=== PATIENT | female | born 1940 | race Caucasian/White ===

== ENCOUNTER 2019-09-28 21:55 | Observation (INO) | payer MEDICARE, SELFPAY ==
--- NOTE | ~2019-09-28 | CT_ITS ---
EXAMINATION: CT brain wo con EXAM DATE: 09/28/2019 22:41 INDICATION: Head injury. TECHNIQUE: Spiral CT of the head was performed without contrast. Axial, coronal and sagittal images were reviewed. The dose-length product (DLP) for this examination was 681.00 mGy-cm. The exposure w as tailored according to patient size, and iterative reconstruction (ASIR) was used as additional dos e reduction technique. Comparison is made to prior examination from 06/12/2019. FINDINGS: There is no acute intraparenchymal hemorrhage. No evidence of intraparenchymal brain mass lesion. No evidence of acute infarction. Please note that initial head CT has limited sensitivity f or small or acute infarctions. There is mild periventricular and subcortical hypodensity, nonspecific but probably related to small vessel ischemic disease. There is moderate prominence of the sulci a nd ventricles related to cerebral atrophy. There is intracranial carotid arteriosclerosis. There a re no extra-axial collections. There is no mass effect or midline shift. Moderate right sphenoid, mild bilateral ethmoid mucoperiosteal thickening. Mastoid air cells are well -aerated. Bilateral cataract surgery. There is left parietal scalp laceration, moderate hematoma. IMPRESSION: 1. No acute intracranial findings. 2. Chronic age related findings. 3. Left parietal scalp laceration, contusion, hematoma. Reviewed, dictated and finalized at location .
--- NOTE | ~2019-09-28 | XR_ITS ---
EXAMINATION: XR hip RT 2V w AP pelvis DATE: 09/29/2019 01:56 INDICATION: Right hip pain. TECHNIQUE: An anteroposterior view of the pelvis and 2 views of right hip were obtained. COMPARISON: CT abdomen and pelvis 12/29/2011 FINDINGS: There is lumbar dextrocurvature and mild spondylosis. No fracture. There is mild osteoarthr itis of the hips. There are surgical clips in right abdomen. IMPRESSION: 1. Mild osteoarthritis of the hips. Reviewed, dictated and finalized at location A.
[2019-09-28 21:55] VITALS: BP 198/80; PULSE 76; RESP 15; TEMP 36.6; O2SAT 97
--- NOTE | 2019-09-28 21:58 | ECG_ITS ---
Measurements Intervals [place] Rate: 75 P: MS: 0 QRS: 63 QRSD: 149 T: 0 QT: 425 QTc: 477 Interpretive Statements SINUS RHYTHM WITH FIRST DEGREE AV BLOCK RIGHT BUNDLE BRANCH BLOCK BASELINE ARTIFACT- I, II, III, AVR, AVL, AVF, V1-V2, V4-V6 ABNORMAL ECG Electronically Signed On 09-29-2019 7:18:55 CDT by Ang Dee D.O.
[2019-09-28] MEDS: SODIUM CHLORIDE 0.9% IV 1,000 ML 999 ML IV CONT (22:04)
[2019-09-28] MEDS: ONDANSETRON INJ 4 MG/2 ML VIAL IV PUSH (22:04)
--- NOTE | 2019-09-28 22:05 | ED.FALL ---
HPI - Fall General Chief Complaint: Fall Stated Complaint: fall Time Seen by Provider: 09/28/19 21:57 History of Present Illness HPI Narrative: Pt c/o head pain and right hip pain after she lost her balance after she bent over to try to pick something up from the floor. She denies LOC. Denies any symptoms prior to the fall. Pt denies neck, chest, abd, or back pain. Related Data Home Medications Medication Instructions Recorded Confirmed aspirin 81 mg tablet,delayed 81 mg PO DAILY 06/17/19 release multivitamin 1 tablet PO DAILY 06/17/19 Allergies Allergy/AdvReac Type Severity Reaction Status Date / Time diltiazem Allergy Unknown Anxiety Verified 07/15/19 12:35 Review of Systems Review of Systems: All systems reviewed & are unremarkable except as noted in HPI and below Constitutional: Constitutional: Denies body ache(s), Denies chills, Denies excessive sweating, Denies fatigue, Denies fever(s), Denies headache(s), Denies lethargy, Denies malaise, Denies weakness and Denies weight loss Eyes: Eyes: Denies blurry vision, Denies change in vision and Denies loss of vision ENT: Denies dizziness, Denies ear discharge, Denies headache(s), Denies lip swelling, Denies epistaxis, Denies nasal congestion, Denies neck pain, Denies throat swelling and Denies tongue swelling Cardiovascular: Cardiovascular: Denies chest pain, Denies chest pain at rest, Denies chest pain with activity, Denies diaphoresis, Denies rapid heart rate, Denies edema, Denies irregular heart rhythm, Denies lightheadedness, Denies palpitations, Denies dyspnea and Denies dyspnea on exertion Respiratory: Respiratory: Denies chest congestion, Denies cough, Denies hemoptysis, Denies dyspnea and Denies dyspnea on exertion Gastrointestinal: Gastrointestinal: Denies abdominal pain, Denies melena, Denies hematochezia, Denies diarrhea, Denies nausea, Denies vomiting and Denies hematemesis Musculoskeletal: Musculoskeletal: Denies neck pain and Denies numbness Neurologic: Denies Abnormal speech present, Denies confusion, Denies dizziness, Denies headache(s), Denies focal weakness, Denies loss of vision, Denies numbness, Denies Other visual disturbances, Denies Sensory deficit (Neuro) and Denies weakness Psychiatric: Psychiatric: Denies confusion, Denies depression, Denies auditory hallucinations, Denies homicidal ideation and Denies suicidal ideation Endocrine: Endocrine: Denies cold intolerance, Denies excessive sweating, Denies fatigue, Denies heat intolerance and Denies palpitations Hematologic/Lymphatic: Hematologic/Lymphatic: Denies easy bleeding and Denies easy bruising Allergic/Immunologic: Allergic/Immunologic: Denies lip swelling, Denies throat swelling and Denies tongue swelling PMFSH Past Medical History Medical History (Updated 09/29/19 @ 00:48 by Pola Kern MD) Anxiety Diabetes HTN (hypertension) Hypercholesterolemia Hypothyroid Surgical History Surgical History (Updated 04/26/19 @ 14:22 by MELANI Molina) H/O right nephrectomy Social History Social History Smoking status: Never smoker Alcohol intake: never Gender identity (if verbalized by the patient): Female Exam Const: General: cooperative, healthy appearing, comfortable, well developed, alert and awake; No confusion Nutritional Appearance: obese Orientation/consciousness: oriented to person, oriented to place, oriented to time, patient oriented x3 and No confusion Limitations: no limitations Other: mild distress HENMT: Ears: hearing grossly normal bilaterally, TM normal on the right and TM normal on the left General nose exam: Normal external nose present, Normal nares present and No nasal discharge present Face and sinus: normal facial exam Mouth: Yes Normal oral and palatal mucosa present, Yes lip normal, Yes tongue normal and Yes oropharynx normal Throat: posterior oropharynx normal, tonsils normal and u
[2019-09-28 22:30] LABS: Basophils Percent Auto 0.6 % (0.2-1.2); Eosinophils Absolute Auto 0.2 K/mm3 (0-0.3); Hematocrit 34.7 % (37.0-47.0); Immature Granulocyte Absolute 0.11 K/mm3 (0.00-0.031); Immature Granulocyte Percent A 1.5 % (0-0.5); Lymphocytes Absolute Auto 1.02 K/mm3 (0.9-3.2); Lymphocytes Percent Auto 14.3 % (18.3-44.2); Mean Corpuscular HGB Conc 31.7 g/dl (32-36); Mean Corpuscular Hemoglobin 28.4 pg (26-34); Mean Corpuscular Volume 89.4 fl (80-100); Mean Platelet Volume 9.6 fl (7.4-10.4); Monocytes Absolute Auto 0.6 K/mm3 (0.1-0.6); Neutrophils Absolute Auto 5.1 K/mm3 (1.3-6.7); Neutrophils Percent Auto 71.6 % (45.5-73.1); Platelet Count Result 245 k/mm3 (150-375); Red Blood Count 3.88 M/mm3 (4.2-5.4); Red Cell Distribution Width 14.9 % (11.5-14.5); White Blood Count 7.1 K/mm3 (4.5-10.0)
[2019-09-28 22:40] LABS: Prothrombin Time 13.2 Seconds (11.1-14.7)
[2019-09-28 22:41] LABS: Partial Thromboplastin Time 28.1 SECONDS (22.3-36.8)
[2019-09-28 22:42] LABS: Alanine Aminotransferase 19 U/L (4-35); Albumin Level 3.4 g/dL (3.5-5.1); Alkaline Phosphatase 61 U/L (38-126); Aspartate Amino Transferase 32 U/L (14-36); Bilirubin,Total 0.4 mg/dL (0.2-1.3); Blood Urea Nitrogen 23 mg/dL (7-17); Calcium 8.5 mg/dL (8.4-10.2); Carbon Dioxide 30 mmol/L (22-30); Chloride 101 mmol/L (98-107); Estimated CRCL calculation 46 ml/min; Estimated Glomerular Filt Rate 54; Glucose 179 mg/dL (65-105); Sodium 139 mmol/L (137-145)
[2019-09-28 22:53] LABS: Troponin I 0.018 ng/mL (0.000-0.034)
[2019-09-28] MEDS: PROMETHAZINE HCL 25 MG/ML AMPUL 12.5 MG IV PUSH (23:30)
[2019-09-29] VITALS: BP 154/78; PULSE 69; RESP 12; O2SAT 96
[2019-09-29] MEDS: ONDANSETRON INJ 4 MG/2 ML VIAL IV PUSH (00:40)
[2019-09-29] MEDS: LACTATED RINGERS 1,000 ML 250 ML IV CONT (00:41)
[2019-09-29] MEDS: HYDROMORPHONE HCL 1 MG/ML INJ 0.5 MG IV PUSH (01:26)
[2019-09-29 01:37] VITALS: BP 160/50; PULSE 85; RESP 12; TEMP 37.1; O2SAT 97
[2019-09-29 03:16] VITALS: BP 144/46; PULSE 83; RESP 18; TEMP 36.2; O2SAT 95; BMI 44.8
[2019-09-29 06:00] VITALS: BP 181/51; PULSE 77; RESP 18; TEMP 36.6; O2SAT 93
--- NOTE | 2019-09-29 06:33 | ADMGEN ---
This patient, Martine Short, was admitted to Medical Room 245-. Patient/family oriented to hospital policies and general routines including ID bracelet, bed and alarms, visiting hours, pain management, procedures, bathroom and other care routines, personal items, smoking policy, room service/diet, and visiting hours. Valuables list has been completed. Information on how to activate the Rapid Response Team has been discussed. Patient/Family are encouraged to report perceived risks to care and to ask questions if they do not understand what they are told or what they should do.
--- NOTE | 2019-09-29 11:44 | PM.SD ---
Same Day Admit/Disch: HPI History of Present Illness Chief complaint: Head injury, Intractable vomiting Narrative: Martine Short is a 79 year old female who was in her usual state of health until 09/27 in the afternoon when she bent over to grain picker a book that had dropped to the floor. As she bent over she lost her balance and fell to the floor striking her head and left hand and hip. She did not lose consciousness. This occurred sometime around 2:00 p.m.. Around 3:00 p.m. she began to feel nauseated. She had 3 episodes of vomiting. She has been NPO since. About 2-3 weeks ago she had a similar fall at home. She again lost her balance. She has bruising of both knees and the right thigh She denied headache, weakness, numbness, tenderness, worsened visual changes, for abdominal pain, and diarrhea. She denied recent illness. And She denied fevers chills sweats dyspnea chest pain and swelling. [facility] Past Medical History Medical History (Updated 09/29/19 @ 12:10 by Ras Sorto MD) Anxiety Diabetes HTN (hypertension) Hypercholesterolemia Hypothyroid Surgical History Surgical History (Updated 09/29/19 @ 12:06 by Ras Sorto MD) H/O right nephrectomy for renal cell CA about 1999 Family History Family History Father Family history of heart disease in male family member before age 55 Other Diabetes mellitus Family history of arthritis Family history of cardiovascular disease Family history of malignant neoplasm Hypertension Social History Social History (Updated 09/29/19 @ 12:07 by Ras Sorto MD) Smoking status: Never smoker Alcohol intake: never Substance use: never Living arrangements: with family Additional living arrangements comments: Resides with sister. 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 Gender identity (if verbalized by the patient): Female Spiritual care concerns: No Agree to blood products: Yes Same Day Admit/Disch: Med Pre-admit Medications Home Medications Medication Instructions Recorded Confirmed Type aspirin 81 mg tablet,delayed 81 mg PO DAILY 06/17/19 09/29/19 History release multivitamin 1 tablet PO DAILY 06/17/19 09/29/19 History atorvastatin 40 mg tablet 40 mg PO DAILY #90 tablet 07/13/19 09/29/19 Rx bumetanide 2 mg tablet 2 mg PO BID #180 tablet 07/13/19 09/29/19 Rx citalopram 20 mg tablet 20 mg PO DAILY #90 tablet 07/13/19 09/29/19 Rx hydralazine 50 mg tablet 50 mg PO TID #270 tablet 07/13/19 09/29/19 Rx insulin human U-100 NPH-regulr 20 unit SUB-Q BID #10 ml 07/13/19 09/29/19 Rx 70-30 mix 100 unit/mL subcutaneous susp levothyroxine 112 mcg tablet 112 mcg PO DAILY #90 tablet 07/13/19 09/29/19 Rx pen needle, diabetic 31 gauge x #1,200 each 07/13/19 Rx 5/16 insulin detemir U-100 100 unit/mL 10 unit SUB-Q DAILY #3 ml 07/23/19 09/29/19 Rx (3 mL) subcutaneous pen blood sugar diagnostic #400 each 07/26/19 Rx blood-glucose meter #1 each 07/26/19 Rx lancets 33 gauge #400 each 07/26/19 Rx insulin syringe-needle U-100 1 mL #200 each 08/20/19 Rx 25 x 1 promethazine 12.5 mg PO Q6H PRN #14 tablet 09/29/19 Rx tolnaftate 1 applic TOPICAL Q12HR #45 gm 09/29/19 Rx Exam Narrative: Exam Narrative: HEENT: EOMI, PERRL, pharyngeal mucosa pink and intact NECK: No JVD, adenopathy, or thyromegaly CHEST: Clear to auscultation. Normal effort. HEART: NL S1/S2, regular, Soft SERJIO RUSB ABDOMEN: BS+, soft, nontender, no mass, no bruits EXTREMITIES: No cyanosis, pitting edema, or clubbing. Radial and pedal pulses intact NEUROLOGIC: CN intact and symmetric to inspection. DTR's 1+ upper extremities and knees and absent at ankles. Babinski negative. Sensation to light touch and position intact at both great toes. MUSCULOSKELETAL: Tone and strength symmetric. PSYCH: Alert. Oriented to person, place, and time. DS: Data Data
[2019-09-29] MEDS: TOLNAFTATE 1% POWDER 45 GM BTL 1 APPLIC TOPICAL (13:09)
[2019-09-29 13:10] LABS: Hematocrit 33.9 % (37.0-47.0); Mean Corpuscular HGB Conc 32.4 g/dl (32-36); Mean Corpuscular Hemoglobin 28.9 pg (26-34); Mean Corpuscular Volume 89.2 fl (80-100); Mean Platelet Volume 10.4 fl (7.4-10.4); Platelet Count Result 287 k/mm3 (150-375); Red Cell Distribution Width 14.7 % (11.5-14.5)
[2019-09-29] MEDS: hydrALAZINE HCL 50 MG TABLET PO (13:12)
[2019-09-29 13:13] VITALS: BP 167/60
[2019-09-29 13:34] LABS: Blood Urea Nitrogen 17 mg/dL (7-17); Calcium 8.4 mg/dL (8.4-10.2); Carbon Dioxide 28 mmol/L (22-30); Chloride 98 mmol/L (98-107); Estimated CRCL calculation 65 ml/min; Estimated Glomerular Filt Rate > 60; Glucose 215 mg/dL (65-105); Potassium 4.3 mmol/L (3.4-5.0); Sodium 132 mmol/L (137-145)
[2019-09-29 14:00] VITALS: BP 152/41; PULSE 71; RESP 16; TEMP 36.8; O2SAT 96
== END 2019-09-29 16:55 | disposition home health service (06) ==
LOC: ANHED 09-29 00:48 → ANH2MED 09-29 12:17
PROVIDERS: Admitting Provider Family Medicine; Emergency Provider Emergency Medicine; PCP Internal Medicine; Visit Provider Internal Medicine
DX: S06.0X0A Concussion without loss of consciousness, initial encounter (principal); R11.2 Nausea with vomiting, unspecified; S70.01XA Contusion of right hip, initial encounter; T14.8XXA Other injury of unspecified body region, initial encounter; W18.39XA Other fall on same level, initial encounter; E11.3549 Type 2 diabetes mellitus with proliferative diabetic retinopathy with combined traction retinal detachment and rhegmatogenous retinal detachment, unspecified eye; H35.30 Unspecified macular degeneration; I10 Essential (primary) hypertension; E78.00 Pure hypercholesterolemia, unspecified; E03.9 Hypothyroidism, unspecified; I35.0 Nonrheumatic aortic (valve) stenosis; I89.0 Lymphedema, not elsewhere classified; F41.9 Anxiety disorder, unspecified; F32.9 Major depressive disorder, single episode, unspecified; Z79.4 Long term (current) use of insulin; Z79.82 Long term (current) use of aspirin; Z79.899 Other long term (current) drug therapy; Z85.528 Personal history of other malignant neoplasm of kidney; Z90.5 Acquired absence of kidney
CPT/HCPCS: 36415; 70450; 73502; 80048; 80053; 84484; 85025; 85027; 85610; 85730; 93005; 96361; 96374; 96375; 97161; 97165; 99285; A9270; G0378; J1170; J2405; J2550; J7030; J7120

== ENCOUNTER 2019-11-23 07:18 | Outpatient (CLI) | payer MEDICARE, SELFPAY ==
[2019-11-23 08:10] LABS: Blood Urea Nitrogen 16 mg/dL (7-17); Calcium 8.9 mg/dL (8.4-10.2); Carbon Dioxide 31 mmol/L (22-30); Chloride 99 mmol/L (98-107); Estimated Glomerular Filt Rate > 60; Glucose 105 mg/dL (65-105); Potassium 4.3 mmol/L (3.4-5.0); Sodium 135 mmol/L (137-145)
[2019-11-23 08:39] LABS: Creatinine Urine 55.7 mg/dL
[2019-11-23 08:44] LABS: MALB Creatinine Ratio 33.4 mg/g (0-30); Microalbumin Urine Random 18.6 mg/L (0-16.7)
== END 2019-11-23 07:19 | disposition home or self-care (01) ==
PROVIDERS: PCP Internal Medicine; Visit Provider Internal Medicine
DX: E11.354 Type 2 diabetes mellitus with proliferative diabetic retinopathy with combined traction retinal detachment and rhegmatogenous retinal detachment (principal)
CPT/HCPCS: 36415; 80048; 82043; 83036

== ENCOUNTER 2020-01-21 12:21 | Emergency (ER) | payer MEDICARE, SELFPAY ==
--- NOTE | ~2020-01-21 | CT_ITS ---
EXAMINATION: CT brain wo con EXAM DATE: 01/21/2020 13:39 INDICATION: Fall, head injury. TECHNIQUE: Spiral CT of the head was performed without contrast. Axial, coronal and sagittal images were reviewed. The dose-length product (DLP) for this examination was 605.33 mGy-cm. The exposure w as tailored according to patient size, and iterative reconstruction (ASIR) was used as additional dos e reduction technique. Comparison is made to prior examination from 09/28/2019. FINDINGS: There is no acute intraparenchymal hemorrhage. No evidence of intraparenchymal brain mass lesion. No evidence of acute infarction. Please note that initial head CT has limited sensitivity f or small or acute infarctions. There is mild periventricular and subcortical hypodensity, nonspecific but probably related to small vessel ischemic disease. There is mild prominence of the sulci and v entricles related to cerebral atrophy. There is intracranial carotid arteriosclerosis. There are n o extra-axial collections. There is no mass effect or midline shift. Patient has had bilateral ocul ar lens surgery. Soft tissue is unremarkable. The visualized sinuses and mastoid air cells are well aerated. IMPRESSION: 1. No acute intracranial findings. 2. Chronic age related findings. Reviewed, dictated and finalized at location B.
[2020-01-21 12:23] VITALS: BP 125/44; PULSE 69; RESP 17; TEMP 36.8; O2SAT 96
--- NOTE | 2020-01-21 13:06 | ED.HEATRA ---
HPI - Head Injury General Chief complaint: Head Injury Stated complaint: FALL/HEAD INJURY Time Seen by Provider: 01/21/20 12:24 Source: patient and family Mode of arrival: ambulatory Limitations: no limitations History of Present Illness HPI Narrative: Patient missed a step and fell striking the right side of her head on the wall ON the way down causing a small hematoma, no loss of consciousness, no neck pain or other injuries. Patient does not take blood thinner. Related Data Home Medications Medication Instructions Recorded Confirmed aspirin 81 mg tablet,delayed 81 mg PO DAILY 06/17/19 09/29/19 release multivitamin 1 tablet PO DAILY 06/17/19 09/29/19 acetaminophen 500 mg tablet 1,000 mg PO Q6H PRN tablet 10/04/19 omega-3 fatty acids 1,000 mg 1,000 mg PO TID cap 10/04/19 capsule Allergies Allergy/AdvReac Type Severity Reaction Status Date / Time diltiazem Allergy Unknown Anxiety Verified 01/21/20 12:27 Review of Systems Review of Systems: Narrative: CONSTITUTIONAL: Denies fever, chills, or sweats. EYES: Denies visual changes, redness, or discharge. ENT: Denies rhinorrhea, congestion, sore throat, or otalgia. CARDIOVASCULAR: Denies chest pain, palpitations, or edema. RESPIRATORY: Denies cough or dyspnea. GASTROINTESTINAL: Denies abdominal pain, nausea, vomiting, or diarrhea. GENITOURINARY: Denies dysuria or hematuria. SKIN: Denies rash or itching. MUSCULOSKELETAL: Denies back pain, joint pain, or myalgia. NEUROLOGIC: Denies headache, numbness, or weakness. PSYCHIATRIC: Denies anxiety or depression. [facility] Past Medical History Medical History Anxiety Diabetes HTN (hypertension) Hypercholesterolemia Hypothyroid Surgical History Surgical History H/O right nephrectomy for renal cell CA about 1999 Family History Family History Father Family history of heart disease in male family member before age 55 Other Diabetes mellitus Family history of arthritis Family history of cardiovascular disease Family history of malignant neoplasm Hypertension Social History Social History Smoking status: Never smoker Alcohol intake: never Substance use: never Additional living arrangements comments: Resides with sister. 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 Gender identity (if verbalized by the patient): Female Spiritual care concerns: No Agree to blood products: Yes Exam Narrative: Exam Narrative: General appearance: Well-developed, well-nourished Skin: Normal color Head: Normocephalic, 2 cm of the right parietal hematoma, no laceration, no abrasion. Eyes: Clear conjunctiva ENT: Oropharynx normal, ears normal, nose normal Neck: Supple, nontender Chest and respiratory: Airway patent, no respiratory distress, no accessory muscle use Heart: Regular rate/rhythm Abdomen: Soft, nontender, no organomegaly, quiet bowel sounds Vascular: Normal peripheral pulses, normal capillary refill. Musculoskeletal: Normal range of motion, nontender back Neurologic: Alert and oriented ?3, INSURANCE COMPLIANCE ANALYST is normal as tested, no gross motor deficit Course Course Emergency Course: Stable Vital Signs Vital signs: Vital Signs Temperature 36.8 C 01/21/20 12:23 Pulse Rate 69 01/21/20 12:23 Respiratory Rate 17 01/21/20 12:23 Blood Pressure 125/44 L 01/21/20 12:23 Pulse Oximetry 96 01/21/20 12:23 Temperature 36.8 C 01/21/20 12:23 Pulse Rate 69 01/21/20 12:23 Respiratory Rate
[2020-01-21 13:28] VITALS: BP 143/43; PULSE 64; RESP 18; O2SAT 98
== END 2020-01-21 14:05 | disposition home or self-care (01) ==
PROVIDERS: Emergency Provider Emergency Medicine; PCP Internal Medicine
DX: S06.0X0A Concussion without loss of consciousness, initial encounter (principal); E11.9 Type 2 diabetes mellitus without complications; I10 Essential (primary) hypertension; E78.00 Pure hypercholesterolemia, unspecified; E03.9 Hypothyroidism, unspecified; Z90.5 Acquired absence of kidney; Z85.528 Personal history of other malignant neoplasm of kidney; Z79.82 Long term (current) use of aspirin; W10.9XXA Fall (on) (from) unspecified stairs and steps, initial encounter
CPT/HCPCS: 70450; 99284

== ENCOUNTER 2020-03-19 18:58 | Inpatient (IN) | payer MEDICARE, MEDICAID, SELFPAY ==
[2020-03-19] VITALS (11 sets, daily range): BP systolic 96–142; BP diastolic 32–57; PULSE 66–80; RESP 16–23; TEMP 36.4–38.1; O2SAT 96–99; BMI 42.6
--- NOTE | ~2020-03-19 | XR_ITS ---
XR tibia fibula RT 2V DATE: 03/19/2020 20:57 INDICATION: Injury from fall. Chronic wound of mid lower leg. History of diabetes. TECHNIQUE: AP and lateral views COMPARISON: None FINDINGS: There is prominent enthesopathy of the superior pole of the patella at the insertion of the quadriceps tendon. There is periarticular spurring of the patellofemoral joint. There is diffuse osteopenia. There is chondrocalcinosis at the knee joint. No fracture or dislocation, periosteal reaction or bone destruction is detected. There is osteoarthritic change at the tibiotalar joint. There is prominent posterior and plantar calc aneal enthesopathy. There is dorsal spurring at the talonavicular and tarsal joints. There is soft tissue swelling and calcifications of the lower leg. 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
--- NOTE | ~2020-03-19 | US_ITS ---
EXAMINATION: US venous doppler LE RT EXAM DATE: 03/20/2020 17:50 INDICATION: Right leg edema. TECHNIQUE: Multiple grayscale, color flow and Doppler images of the right lower extremity deep venous system were obtained and reviewed. There is no prior study for comparison. FINDINGS: The right common femoral, femoral and profunda veins demonstrate normal color flow, respira tory variation, augmentation and compressibility. Compressibility, color flow confirmed within the r ight popliteal, posterior tibial, peroneal, and greater saphenous veins. IMPRESSION: 1. No right lower extremity deep venous thrombosis. Reviewed, dictated and finalized at location A.
--- NOTE | 2020-03-19 19:04 | ED.NAVMDI ---
HPI - Nausea/Vomiting/Diarrhea General Chief complaint: Nausea/Vomiting/Diarrhea Stated complaint: n/v fever Time Seen by Provider: 03/19/20 19:02 Source: patient, family and EMS Mode of arrival: EMS Limitations: no limitations History of Present Illness HPI Narrative: Patient is a 79-year-old female with history of diabetes, renal cell cancer, chronic lymphedema who presents for evaluation of fever and nausea at home. Patient states she had a fever of 100.8 Fahrenheit thus prompting her to call EMS. She had 3 episodes of emesis earlier this morning but denies any chest pain, cough, abdominal pain. No dysuria or hematuria. She reports she has chronic pain in her right lower extremity as well as chronic swelling. She has a wound overlying that area without any discharge or bleeding. Patient states 1 of the EMS staff did hit it with a door while she was being transported off of the ambulance, she reports some increased pain at the site. Related Data Home Medications Medication Instructions Recorded Confirmed aspirin 81 mg tablet,delayed 81 mg PO DAILY 06/17/19 03/09/20 release multivitamin 1 tablet PO DAILY 06/17/19 03/09/20 acetaminophen 500 mg tablet 1,000 mg PO Q6H PRN tablet 10/04/19 03/09/20 omega-3 fatty acids 1,000 mg 1,000 mg PO TID cap 10/04/19 03/09/20 capsule atorvastatin 40 mg DAILY 03/19/20 bumetanide 2 mg DAILY 03/19/20 Allergies Allergy/AdvReac Type Severity Reaction Status Date / Time diltiazem Allergy Unknown Anxiety Verified 03/19/20 20:51 Review of Systems Review of Systems: Narrative: CONSTITUTIONAL: Reports fever EYES: Denies visual changes, redness, or discharge. ENT: Denies rhinorrhea, congestion, sore throat, or otalgia. CARDIOVASCULAR: Denies chest pain reports chronic edema right lower extremity RESPIRATORY: Denies cough or dyspnea. GASTROINTESTINAL: Denies abdominal pain, reports nausea and vomiting early this morning, now resolved, denies diarrhea GENITOURINARY: Denies dysuria or hematuria. SKIN: Denies rash or itching. MUSCULOSKELETAL: Denies back pain, joint pain, or myalgia. NEUROLOGIC: Denies headache, numbness, or weakness. [facility] Past Medical History Medical History Anxiety Diabetes HTN (hypertension) Hypercholesterolemia Hypothyroid Surgical History Surgical History H/O right nephrectomy for renal cell CA about 1999 Family History Family History Father Family history of heart disease in male family member before age 55 Other Diabetes mellitus Family history of arthritis Family history of cardiovascular disease Family history of malignant neoplasm Hypertension Social History Social History Smoking status: Never smoker Alcohol intake: never Substance use: never Additional living arrangements comments: Resides with sister. 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 Gender identity (if verbalized by the patient): Female Spiritual care concerns: No Agree to blood products: Yes Exam Narrative: Exam Narrative: GENERAL: Awake, alert, conversant HEAD: Normocephalic, atraumatic. EYES: PERRLA and EOMI. ENT: Nares clear, no rhinorrhea or epistaxis. Mucous membranes moist. NECK: Supple. CHEST: No respiratory distress, breathing even and non labored HEART: Regular rate, sinus rhythm ABDOMEN: Obese, non distended, non tender, yeast and erythema, cellulitis of abdominal panus folds, extending into thigh area bilateral upper extremities. No tunneling wounds. EXTREMITIES: Normal range of motion. Warmth, erythema, edema to the right lower extremity extending from the right foot and ankle into the right lower leg. There is a chronic appearing wound overlying the anterior tibia. There is tenderness palpation. N
--- NOTE | 2020-03-19 19:16 | PC.NURSE ---
patient here via EMS with N/V today. see triage note. on monitor. has call light. report given to Waqas ROUSE
[2020-03-19 19:41] LABS: Hematocrit 30.6 % (37.0-47.0); Hemoglobin 10.2 g/dL (12.0-15.0); Mean Corpuscular HGB Conc 33.3 g/dl (32-36); Mean Corpuscular Hemoglobin 29.7 pg (26-34); Mean Corpuscular Volume 89.2 fl (80-100); Mean Platelet Volume 10.7 fl (7.4-10.4); Platelet Count Result 297 k/mm3 (150-375); Red Blood Count 3.43 M/mm3 (4.2-5.4); Red Cell Distribution Width 14.9 % (11.5-14.5); White Blood Count 21.5 K/mm3 (4.5-10.0)
[2020-03-19] MEDS: ONDANSETRON INJ 4 MG/2 ML VIAL IV PUSH (19:42)
[2020-03-19] MEDS: SODIUM CHLORIDE 0.9% IV 1,000 ML 999 ML IV CONT ×2 (19:42→21:42)
--- NOTE | 2020-03-19 19:42 | PC.NURSE ---
Called lab to add on ESR and C - Reactive prot
[2020-03-19 19:47] LABS: Alanine Aminotransferase 16 U/L (4-35); Albumin Level 3.4 g/dL (3.5-5.1); Alkaline Phosphatase 42 U/L (38-126); Anion Gap 7 mmol/L (8-16); Aspartate Amino Transferase 22 U/L (14-36); Bilirubin,Total 0.8 mg/dL (0.2-1.3); Blood Urea Nitrogen 32 mg/dL (7-17); Calcium 8.9 mg/dL (8.4-10.2); Carbon Dioxide 28 mmol/L (22-30); Chloride 98 mmol/L (98-107); Estimated CRCL calculation 41 ml/min; Estimated Glomerular Filt Rate 43; Glucose 229 mg/dL (65-105); Lipase 29 U/L (23-300); Potassium 5.4 mmol/L (3.4-5.0); Sodium 133 mmol/L (137-145)
[2020-03-19] MEDS: ACETAMINOPHEN 500 MG TABLET 1000 MG PO (19:56)
[2020-03-19 19:59] LABS: Band Neutrophils Percent 16 % (0-6); Lymphocytes Absolute Manual 0.64 K/mm3 (1.1-4.5); Lymphocytes Percent Manual 3 % (18-44); Monocytes Absolute Manual 0.86 K/mm3 (0.1-0.90); Monocytes Percent Manual 4 % (3-9); Neutrophils Absolute Manual 19.99 K/mm3 (1.7-7.2); Neutrophils Percent Manual 77 % (46-73); Total Cells Counted 100
[2020-03-19 20:00] LABS: Platelet Estimate Adequate (Adequate)
[2020-03-19 20:01] LABS: CRP 5.8 mg/dL (<1.0)
[2020-03-19 20:08] LABS: Lactic Acid Reflex 2.6 mmol/L (0.7-2.1)
[2020-03-19 20:15] LABS: Erythrocyte Sedimentation Rate > 140 mm/hr (0-20)
[2020-03-19 20:20] LABS: Add Urine Microscopic? YES; Appearance Urine Clear (Clear); Bilirubin Urine Negative (Negative); Blood Urine Negative (Negative); Color Urine Amber (Yellow); Glucose Urine UA Negative (Negative); Hyaline Casts Urine 20-29 /lpf; Ketones Urine Negative (Negative); Leukocyte Esterase Ur Negative LEU/UL (Negative); Mucus Urine Rare /lpf; Nitrate Urine Negative (Negative); Protein Urine Negative (Negative); Specific Grav Ur 1.016 (1.001-1.035)
[2020-03-19] MEDS: DEXTROSE 50% 25 GM/50 ML SYRINGE IV PUSH (21:44)
[2020-03-19] MEDS: CALCIUM GLUCONATE 1,000 MG/10 ML VIAL 1000 MG IV PUSH (21:46)
[2020-03-19] MEDS: INSULIN HUMAN REGULAR (*BKC) 100 UNITS/ML 10 UNITS IV PUSH (21:48)
--- NOTE | 2020-03-19 22:08 | PM.IMHP ---
H&P: HPI History of Present Illness Date/Time: 03/19/20 22:08 Chief complaint: Sepsis, Abdominal wall cellulitis Narrative: Martine Short is a 79 year old female with PMHx significant for T2DM, Morbid obesity, Chronic Lymphedema, chronic panniculitis. Patient presented to ED due to nausea and vomiting, fevers, chills, no cough, no sputum production, no sob, no chest pain. Patient noticed has been in her usual state of health prior to this. Patient was found to have redness and tenderness of the RLE as well as pannus. Patient has been admitted for iv antibiotics. Review of Systems Review of Systems: Narrative: Patient presented to ED due to n/v x 3 and chills. Constitutional: Constitutional: Reports chills Eyes: Comments: no vision changes. ENT: Comments: no ear pain, no throat pain, no nasal discharge or congestion. Cardiovascular: Comments: no chest pain, no pnd, no orthopnea. Respiratory: Comments: no cough, no sputum production,no sob. Gastrointestinal: Comments: n/v Genitourinary: Comments: no burning on urination. Musculoskeletal: Comments: RLE tenderness, swelling, redness. Integumentary/Breasts: Skin/Breast: Reports erythema and Reports skin swelling Comments: RLE Neurologic: Comments: no sensory motor deficit. Hematologic/Lymphatic: Comments: No LAP PMFSH Past Medical History Medical History Anxiety Diabetes HTN (hypertension) Hypercholesterolemia Hypothyroid Surgical History Surgical History H/O right nephrectomy for renal cell CA about 1999 Family History Family History Father Family history of heart disease in male family member before age 55 Other Diabetes mellitus Family history of arthritis Family history of cardiovascular disease Family history of malignant neoplasm Hypertension Social History Social History Smoking status: Never smoker Alcohol intake: never Substance use: never Substance use type: does not use Additional living arrangements comments: Resides with sister. 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 Gender identity (if verbalized by the patient): Female Spiritual care concerns: Yes (pt would like to see section beamer) Agree to blood products: Yes Meds Home Medications and Allergies Home Medications Medication Instructions Recorded Confirmed Type aspirin 81 mg tablet,delayed 81 mg PO DAILY 06/17/19 03/19/20 History release multivitamin 1 tablet PO DAILY 06/17/19 03/19/20 History citalopram 20 mg tablet 20 mg PO DAILY #90 tablet 07/13/19 03/19/20 Rx levothyroxine 112 mcg tablet 112 mcg PO DAILY #90 tablet 07/13/19 03/19/20 Rx pen needle, diabetic 31 gauge x #1,200 each 07/13/19 03/19/20 Rx 5/16 blood sugar diagnostic #400 each 07/26/19 03/19/20 Rx blood-glucose meter #1 each 07/26/19 03/19/20 Rx lancets 33 gauge #400 each 07/26/19 03/19/20 Rx insulin syringe-needle U-100 1 mL #200 each 08/20/19 03/19/20 Rx 25 x 1 acetaminophen 500 mg tablet 1,000 mg PO Q6H PRN tablet 10/04/19 03/19/20 History omega-3 fatty acids 1,000 mg 1,000 mg PO TID cap 10/04/19 03/19/20 History capsule hydralazine 50 mg tablet 50 mg PO QID #360 tablet 12/09/19 03/19/20 Rx insulin detemir U-100 100 unit/mL 10 unit SUB-Q BID #3 ml 12/09/19 03/19/20 Rx (3 mL) subcutaneous pen lisinopril 40 mg tablet 40 mg PO DAILY #90 tablet 12/09/19 03/19/20 Rx atorvastatin 40 mg DAILY 03/19/20 03/19/20 History bumetanide 2 mg DAILY 03/19/20 03/19/20 History Allergies Allergy/AdvReac Type Severity Reaction Status Date / Time diltiazem Allergy Unknown Anxiety Verified 03/19/20 20:51 Vital Signs Vital Signs - 24 hr 03/19/20 18:58 03/19/20 19:22 03/19/20 19:50 Temperature 99.3 F 100.2 F H 100.5 F H
[2020-03-19 22:55] LABS: Reflex Lactic Acid Yes or No Add Lactic
--- NOTE | 2020-03-19 23:24 | ADMGEN ---
This patient, Martine Short, was admitted to 2 Medical Room 249-01. Patient/family oriented to hospital policies and general routines including ID bracelet, bed and alarms, visiting hours, pain management, procedures, bathroom and other care routines, personal items, smoking policy, room service/diet, and visiting hours. Information on how to activate the Rapid Response Team has been discussed. Patient/Family are encouraged to report perceived risks to care and to ask questions if they do not understand what they are told or what they should do.
[2020-03-19] MEDS: LACTATED RINGERS 1,000 ML 125 ML IV CONT (23:45)
[2020-03-20] VITALS (8 sets, daily range): BP systolic 132–143; BP diastolic 40–55; PULSE 70–88; RESP 18–20; TEMP 37.1–37.5; O2SAT 94–99
[2020-03-20 06:07] LABS: Lactic Acid Reflex 1.3 mmol/L (0.7-2.1)
[2020-03-20 06:11] LABS: Estimated CRCL calculation 49 ml/min; Estimated Glomerular Filt Rate 54
[2020-03-20] MEDS: LEVOTHYROXINE SODIUM 112 MCG TABLET PO (06:14)
[2020-03-20] MEDS: LACTATED RINGERS 1,000 ML 125 ML IV CONT (07:23)
[2020-03-20] MEDS: OMEGA 3 POLYUNSAT FATTY ACIDS 1 GM CAP PO ×3 (08:18→16:51)
[2020-03-20] MEDS: MULTIVITAMINS THERAPEUTIC TAB (*BKC) 1 TABLET PO (08:18)
[2020-03-20] MEDS: CITALOPRAM HYDROBROMIDE 20 MG TABLET PO (08:18)
[2020-03-20] MEDS: hydrALAZINE HCL 50 MG TABLET PO ×4 (08:18→21:04)
[2020-03-20] MEDS: INSULIN DETEMIR 100 UNITS/ML 10 UNITS SUB-Q ×3 (08:18→21:01)
[2020-03-20] MEDS: ATORVASTATIN 40 MG TABLET BY MOUTH (08:18)
[2020-03-20 09:59] LABS: Glucose Point of Care 118 (65-105)
[2020-03-20] MEDS: TOLNAFTATE 1% POWDER 45 GM BTL 1 APPLIC TOPICAL ×2 (10:24→21:04)
[2020-03-20] MEDS: ASPIRIN 81 MG ENTERIC TABLET PO (10:24)
[2020-03-20 11:58] LABS: Glucose Point of Care 147 (65-105)
--- NOTE | 2020-03-20 16:16 | PM.IMPN ---
Progress Note: A&P Assessment and Plan (1) Sepsis: Qualifiers: Acute renal failure type: unspecified Sepsis acute organ dysfunction status: with acute organ dysfunction Sepsis type: sepsis due to unspecified organism Severe sepsis acute organ dysfunction type: acute renal failure Severe sepsis shock status: without septic shock Qualified Code(s): A41.9 - Sepsis, unspecified organism; R65.20 - Severe sepsis without septic shock; N17.9 - Acute kidney failure, unspecified Code(s): A41.9 - Sepsis, unspecified organism Status: Acute Assessment and Plan: Sepsis present on admission with fever, lactic acidosis, leukocytosis and bandemia. Patient presents with n/v and fevers and diagnosed with panniculitis and RLE cellulitis as the cause of the sepsis. BCx pending. Nausea has resolved. Fever has waned. Repeat WBC in the morning. (2) Abdominal wall cellulitis: Code(s): L03.311 - Cellulitis of abdominal wall Status: Acute Assessment and Plan: Suspect patient has severe fungal infection with maceration that is resulted secondary bacterial infection with panniculitis. Wound Care has been consulted. Continue local care. Continue IV antibiotics. (3) Cellulitis of anterior lower leg: Code(s): L03.119 - Cellulitis of unspecified part of limb Status: Acute Assessment and Plan: Legs mildly edematous. Most likely all related to infection. DVT less likely but should be excluded so will order Doppler ultrasound. Continue IV antibiotics. Elevate the right lower extremity. (4) Acute kidney injury: Code(s): N17.9 - Acute kidney failure, unspecified Status: Acute Assessment and Plan: BUN 32 and creatinine 1.2 on admission. Patient on loop diuretic and JUNI inhibitor at home. These have been held. Patient has been started on IV fluids and creatinine has trended down to 1.0. Will stop IV fluids. Repeat renal function in the morning. If stable, consider resuming Bumex. 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 Start AccuCheks covering with sliding scale. Hypoglycemia protocol available as needed. Continue Levemir. Check A1c. (6) Aortic valve stenosis: Qualifiers: Cardiac valve disease etiology: etiology unspecified Qualified Code(s): I35.0 - Nonrheumatic aortic (valve) stenosis Code(s): I35.0 - Nonrheumatic aortic (valve) stenosis Status: Acute Assessment and Plan: Echo from May 2018 showing mild aortic stenosis. Do not see a more recent echocardiogram. (7) Essential (primary) hypertension: Code(s): I10 - Essential (primary) hypertension Status: Acute Assessment and Plan: Patient's blood pressure was reviewed on 03/20 Blood pressure remains well controlled. Will continue current medications. (8) DVT prophylaxis: Code(s): Z29.9 - Encounter for prophylactic measures, unspecified Status: Acute Assessment and Plan: Lovenox Subjective Date/time seen: 03/20/20 16:16 Interval history: Date of service 03/20 79yo female her for right LE cellulitis and panniculitis. Feel well today. No CP or SOB. No abdominal pain. Eating okay. Not been out of bed yet. No n/v. Normally walks with a cane at home. Exam Narrative: Exam Narrative: Tm 100.2 99.2 143/55 88 18 94% ra Gen - NARD lying semi-recumbent in bed Chest - lungs clear anteriorly, nml RR CV - RRR S1/S2 with 2/6 systolic murmur USB Abd - Soft, obese with large pannus, NT,
[2020-03-20 16:47] LABS: Glucose Point of Care 130 (65-105)
[2020-03-20 23:25] LABS: Glucose Point of Care 148 (65-105)
[2020-03-21] VITALS (8 sets, daily range): BP systolic 133–140; BP diastolic 40–89; PULSE 66–88; RESP 16–20; TEMP 36.6–37.3; O2SAT 96–100
[2020-03-21 05:16] LABS: Basophils Percent Auto 0.3 % (0.2-1.2); Eosinophils Absolute Auto 0.1 K/mm3 (0-0.3); Eosinophils Percent Auto 0.4 % (0-4.4); Hematocrit 27.7 % (37.0-47.0); Hemoglobin 9.1 g/dL (12.0-15.0); Immature Granulocyte Absolute 0.15 K/mm3 (0.00-0.031); Immature Granulocyte Percent A 1.3 % (0-0.5); Lymphocytes Absolute Auto 0.65 K/mm3 (0.9-3.2); Lymphocytes Percent Auto 5.6 % (18.3-44.2); Mean Corpuscular HGB Conc 32.9 g/dl (32-36); Mean Corpuscular Volume 91.4 fl (80-100); Mean Platelet Volume 10.9 fl (7.4-10.4); Monocytes Percent Auto 8.5 % (2.6-8.5); Neutrophils Absolute Auto 9.7 K/mm3 (1.3-6.7); Neutrophils Percent Auto 83.9 % (45.5-73.1); Platelet Count Result 214 k/mm3 (150-375); Red Blood Count 3.03 M/mm3 (4.2-5.4); Red Cell Distribution Width 14.9 % (11.5-14.5); White Blood Count 11.6 K/mm3 (4.5-10.0)
[2020-03-21 05:19] LABS: Anion Gap 3 mmol/L (8-16); Blood Urea Nitrogen 22 mg/dL (7-17); Calcium 8.4 mg/dL (8.4-10.2); Carbon Dioxide 28 mmol/L (22-30); Chloride 101 mmol/L (98-107); Estimated CRCL calculation 54 ml/min; Estimated Glomerular Filt Rate > 60; Glucose 78 mg/dL (65-105); Hemoglobin A1C 5.5 % (<5.7); Potassium 4.2 mmol/L (3.4-5.0); Sodium 132 mmol/L (137-145)
[2020-03-21] MEDS: LEVOTHYROXINE SODIUM 112 MCG TABLET PO (05:41)
[2020-03-21 07:40] LABS: Glucose Point of Care 84 (65-105)
[2020-03-21] MEDS: CITALOPRAM HYDROBROMIDE 20 MG TABLET PO (08:59)
[2020-03-21] MEDS: ASPIRIN 81 MG ENTERIC TABLET PO (08:59)
[2020-03-21] MEDS: hydrALAZINE HCL 50 MG TABLET PO ×4 (08:59→21:23)
[2020-03-21] MEDS: OMEGA 3 POLYUNSAT FATTY ACIDS 1 GM CAP PO ×3 (08:59→17:18)
[2020-03-21] MEDS: TOLNAFTATE 1% POWDER 45 GM BTL 1 APPLIC TOPICAL ×2 (08:59→21:28)
[2020-03-21] MEDS: ATORVASTATIN 40 MG TABLET BY MOUTH (08:59)
[2020-03-21] MEDS: MULTIVITAMINS THERAPEUTIC TAB (*BKC) 1 TABLET PO (08:59)
[2020-03-21] MEDS: INSULIN DETEMIR 100 UNITS/ML SUB-Q (09:58)
[2020-03-21 11:40] LABS: Glucose Point of Care 181 (65-105)
--- NOTE | 2020-03-21 14:43 | PM.IMPN ---
Progress Note: A&P Assessment and Plan (1) Sepsis: Qualifiers: Acute renal failure type: unspecified Sepsis acute organ dysfunction status: with acute organ dysfunction Sepsis type: sepsis due to unspecified organism Severe sepsis acute organ dysfunction type: acute renal failure Severe sepsis shock status: without septic shock Qualified Code(s): A41.9 - Sepsis, unspecified organism; R65.20 - Severe sepsis without septic shock; N17.9 - Acute kidney failure, unspecified Code(s): A41.9 - Sepsis, unspecified organism Status: Acute Assessment and Plan: Sepsis present on admission with fever, lactic acidosis, leukocytosis and bandemia. Patient presents with n/v and fevers and diagnosed with panniculitis and RLE cellulitis as the cause of the sepsis. BCx 1/2 bacillus in anaerobic bottle. continue imipenum and Vanc for now. Nausea has resolved. Fever has waned. Repeat WBC decreased to 11.6 (2) Abdominal wall cellulitis: Code(s): L03.311 - Cellulitis of abdominal wall Status: Acute Assessment and Plan: Suspect patient has severe fungal infection with maceration that is resulted secondary bacterial infection with panniculitis. Wound Care has been consulted. Continue local care. Continue IV antibiotics. (3) Cellulitis of anterior lower leg: Code(s): L03.119 - Cellulitis of unspecified part of limb Status: Acute Assessment and Plan: Legs mildly edematous. Most likely all related to infection. DVT excluded by negative Doppler ultrasound. Continue IV antibiotics. Elevate the right lower extremity. (4) Acute kidney injury: Code(s): N17.9 - Acute kidney failure, unspecified Status: Acute Assessment and Plan: BUN 32 and creatinine 1.2 on admission. Patient on loop diuretic and JUNI inhibitor at home. These have been held. Patient has been started on IV fluids and creatinine has trended down to 0.9. stopped IV fluids 03/20 . 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 AccuCheks covering with sliding scale. Continue Levemir but decrease to 7 U q12 with A1c only 5.5. (6) Aortic valve stenosis: Qualifiers: Cardiac valve disease etiology: etiology unspecified Qualified Code(s): I35.0 - Nonrheumatic aortic (valve) stenosis Code(s): I35.0 - Nonrheumatic aortic (valve) stenosis Status: Acute Assessment and Plan: Echo from May 2018 showing mild aortic stenosis. Do not see a more recent echocardiogram. (7) Essential (primary) hypertension: Code(s): I10 - Essential (primary) hypertension Status: Acute Assessment and Plan: Patient's blood pressure was reviewed on 03/21 Blood pressure remains well controlled. Will continue current medications. (8) DVT prophylaxis: Code(s): Z29.9 - Encounter for prophylactic measures, unspecified Status: Acute Assessment and Plan: Lovenox Subjective Date/time seen: 03/21/20 14:43 Interval history: Date of service 03/21 79yo female here for right LE cellulitis and panniculitis. Feel well today. No CP or SOB. No abdominal pain. Eating okay. . No n/v. Normally walks with a cane at home. Exam Narrative: Exam Narrative: Tm 37.5 37.3 132/40 88 18 96% ra Gen - NARD lying semi-recumbent in bed Chest - lungs clear anteriorly, nml RR CV - RRR S1/S2 with 2/6 systolic murmur USB Abd - Soft, obese with large pannus, NT, +BS, and sitll erythematous Ext - right lowe
[2020-03-21 16:37] LABS: Glucose Point of Care 111 (65-105)
[2020-03-21] MEDS: INSULIN DETEMIR 100 UNITS/ML 6 UNITS SUB-Q (21:28)
[2020-03-21 21:48] LABS: Glucose Point of Care 156 (65-105)
[2020-03-22] VITALS (7 sets, daily range): BP systolic 136–145; BP diastolic 40–43; PULSE 79–87; RESP 16–18; TEMP 36.3; O2SAT 95–96
[2020-03-22 02:20] LABS: Basophils Percent Auto 0.4 % (0.2-1.2); Eosinophils Absolute Auto 0.1 K/mm3 (0-0.3); Eosinophils Percent Auto 1.3 % (0-4.4); Hematocrit 28.8 % (37.0-47.0); Hemoglobin 9.5 g/dL (12.0-15.0); Immature Granulocyte Absolute 0.31 K/mm3 (0.00-0.031); Immature Granulocyte Percent A 3.4 % (0-0.5); Lymphocytes Absolute Auto 0.69 K/mm3 (0.9-3.2); Lymphocytes Percent Auto 7.5 % (18.3-44.2); Mean Corpuscular Hemoglobin 29.8 pg (26-34); Mean Corpuscular Volume 90.3 fl (80-100); Mean Platelet Volume 10.2 fl (7.4-10.4); Monocytes Absolute Auto 0.9 K/mm3 (0.1-0.6); Monocytes Percent Auto 9.5 % (2.6-8.5); Neutrophils Absolute Auto 7.1 K/mm3 (1.3-6.7); Neutrophils Percent Auto 77.9 % (45.5-73.1); Platelet Count Result 229 k/mm3 (150-375); Red Blood Count 3.19 M/mm3 (4.2-5.4); Red Cell Distribution Width 14.6 % (11.5-14.5); White Blood Count 9.2 K/mm3 (4.5-10.0)
[2020-03-22 03:06] LABS: Anion Gap 6 mmol/L (8-16); Blood Urea Nitrogen 25 mg/dL (7-17); Calcium 8.5 mg/dL (8.4-10.2); Carbon Dioxide 27 mmol/L (22-30); Chloride 102 mmol/L (98-107); Estimated CRCL calculation 60 ml/min; Estimated Glomerular Filt Rate > 60; Glucose 117 mg/dL (65-105); Potassium 4.2 mmol/L (3.4-5.0); Sodium 135 mmol/L (137-145)
[2020-03-22] MEDS: LEVOTHYROXINE SODIUM 112 MCG TABLET PO (07:19)
[2020-03-22 08:06] LABS: Glucose Point of Care 142 (65-105)
[2020-03-22] MEDS: hydrALAZINE HCL 50 MG TABLET PO ×2 (09:35→12:12)
[2020-03-22] MEDS: MULTIVITAMINS THERAPEUTIC TAB (*BKC) 1 TABLET PO (09:36)
[2020-03-22] MEDS: CITALOPRAM HYDROBROMIDE 20 MG TABLET PO (09:36)
[2020-03-22] MEDS: ATORVASTATIN 40 MG TABLET BY MOUTH (09:36)
[2020-03-22] MEDS: BUMETANIDE 1 MG TABLET 2 MG PO (09:36)
[2020-03-22] MEDS: OMEGA 3 POLYUNSAT FATTY ACIDS 1 GM CAP PO ×2 (09:36→12:12)
[2020-03-22] MEDS: ASPIRIN 81 MG ENTERIC TABLET PO (09:36)
[2020-03-22] MEDS: TOLNAFTATE 1% POWDER 45 GM BTL 1 APPLIC TOPICAL (09:37)
[2020-03-22] MEDS: INSULIN DETEMIR 100 UNITS/ML 6 UNITS SUB-Q (09:37)
[2020-03-22 12:07] LABS: Glucose Point of Care 152 (65-105)
--- NOTE | 2020-03-22 14:05 | PC.NURSE ---
On 03/22/20, the student, [Gunnar Hughes ], provided care and completed [facility] documentation on this patient. I have reviewed the student's documentation and agree with the findings.
--- NOTE | 2020-03-22 18:32 | PM.DS ---
DS: Admitting Diagnosis Admitting Diagnosis Admitting Diagnosis: Sepsis, Abdominal wall cellulitis DS: Discharge Diagnosis Discharge Diagnosis (1) Sepsis: Qualifiers: Acute renal failure type: unspecified Sepsis acute organ dysfunction status: with acute organ dysfunction Sepsis type: sepsis due to unspecified organism Severe sepsis acute organ dysfunction type: acute renal failure Severe sepsis shock status: without septic shock Qualified Code(s): A41.9 - Sepsis, unspecified organism; R65.20 - Severe sepsis without septic shock; N17.9 - Acute kidney failure, unspecified Code(s): A41.9 - Sepsis, unspecified organism Status: Acute Assessment and Plan: Sepsis present on admission with fever, lactic acidosis, leukocytosis and bandemia. Patient presents with n/v and fevers and diagnosed with panniculitis and RLE cellulitis as the cause of the sepsis. BCx 1/2 bacillus not anthrax thought to be a contaminant. Nausea has resolved. Fever has waned. Repeat WBC decreased to 9.2 and will convert oral medication and discharged (2) Abdominal wall cellulitis: Code(s): L03.311 - Cellulitis of abdominal wall Status: Acute Assessment and Plan: Suspect patient has severe fungal infection with maceration that is resulted secondary bacterial infection with panniculitis. Wound Care evaluated while here. Continue local care. white count has fallen she is afebrile and skin lesions clearing. Discharged home on clindamycin 300 Q 6 for 6 more days and Cipro 500 b.i.d.. (3) Cellulitis of anterior lower leg: Code(s): L03.119 - Cellulitis of unspecified part of limb Status: Acute Assessment and Plan: Legs mildly edematous. Most likely all related to infection. DVT excluded by negative Doppler ultrasound. much improved by discharge and switch to oral medications and follow-up with primary care within a week (4) Acute kidney injury: Code(s): N17.9 - Acute kidney failure, unspecified Status: Acute Assessment and Plan: BUN 32 and creatinine 1.2 on admission. Patient on loop diuretic and JUNI inhibitor at home. These have been held. Patient has been started on IV fluids and creatinine has trended down to 0.8 at discharge. stopped IV fluids 03/20 . 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 AccuCheks covering with sliding scale. resume her usual diabetic regime at home, A1c only 5.5. (6) Aortic valve stenosis: Qualifiers: Cardiac valve disease etiology: etiology unspecified Qualified Code(s): I35.0 - Nonrheumatic aortic (valve) stenosis Code(s): I35.0 - Nonrheumatic aortic (valve) stenosis Status: Acute Assessment and Plan: Echo from May 2018 showing mild aortic stenosis. Do not see a more recent echocardiogram. (7) Essential (primary) hypertension: Code(s): I10 - Essential (primary) hypertension Status: Acute Assessment and Plan: Patient's blood pressure was reviewed on 03/22 Blood pressure remains well controlled. Will continue current medications JUNI-inhibitor and diuretic on discharge. DS: Summary Hospital Course Hospital Course: 79-year-old hypertensive type 2 diabetic admitted with sepsis and cellulitis of panniculus and right lower extremity. On IV vancomycin and imipenem white count fell and erythema subsided. She was up and about feeling much better by the time of discharge ambulating with standby assist and PT.
== END 2020-03-22 16:24 | disposition home or self-care (01) | DRG 872 ==
LOC: ANHED 21:34 → ANH2MED 03-20 04:50
PROVIDERS: Internal Medicine; Admitting Provider Internal Medicine; Emergency Provider Emergency Medicine; PCP Internal Medicine; Visit Provider Internal Medicine
DX: A41.9 Sepsis, unspecified organism (principal); N17.9 Acute kidney failure, unspecified; L03.311 Cellulitis of abdominal wall; L03.115 Cellulitis of right lower limb; Z68.41 Body mass index [BMI] 40.0-44.9, adult; E66.01 Morbid (severe) obesity due to excess calories; R65.20 Severe sepsis without septic shock; E11.354 Type 2 diabetes mellitus with proliferative diabetic retinopathy with combined traction retinal detachment and rhegmatogenous retinal detachment; M79.3 Panniculitis, unspecified; I89.0 Lymphedema, not elsewhere classified; I35.0 Nonrheumatic aortic (valve) stenosis; I10 Essential (primary) hypertension; E78.00 Pure hypercholesterolemia, unspecified; E03.9 Hypothyroidism, unspecified; Z85.53 Personal history of malignant neoplasm of renal pelvis; Z90.5 Acquired absence of kidney; Z79.82 Long term (current) use of aspirin; Z79.4 Long term (current) use of insulin; Z79.899 Other long term (current) drug therapy
CPT/HCPCS: 36415; 51701; 73590; 80048; 80053; 80202; 81001; 82565; 83036; 83605; 83690; 85025; 85652; 86140; 87040; 93971; 96361; 96365; 96375; 97110; 97162; 97165; 97530; 99285; A9270; J0610; J0743; J1815; J2405; J3370; J7030; J7120

== ENCOUNTER 2020-03-22 17:18 | Emergency (ER) | payer MEDICARE, MEDICAID, SELFPAY ==
--- NOTE | ~2020-03-22 | CT_ITS ---
EXAMINATION: CT brain wo con, CT cervical spine wo con EXAM DATE: 03/22/2020 19:00 (accession [id number]), 03/22/2020 19:01 (accession [id number]) INDICATION: Fall, head injury. TECHNIQUE: Spiral CT of the head was performed without contrast. Axial, coronal and sagittal images were reviewed. Spiral CT of the cervical spine was performed without contrast. Axial images were rev iewed. Coronal and sagittal reformatted images were also reviewed. The dose-length product (DLP) fo r this examination was 605.33 (accession [id number]), 484.02 (accession [id number]) mGy-cm. The exposure was tailored according to patient size, and iterative reconstruction (ASIR) was used as additional dose reduction technique. Comparison is made to prior examination from 01/21/2020. FINDINGS: HEAD CT: Punctate old right basal ganglia lacunar infarction. There is no acute intraparenchymal hemo rrhage. No evidence of intraparenchymal brain mass lesion. No evidence of acute infarction. There i s mild periventricular and subcortical hypodensity, nonspecific but probably related to small vessel ischemic disease. There is mild prominence of the sulci and ventricles related to cerebral atrophy. There is intracranial carotid arteriosclerosis. There is no mass effect or midline shift. There is no obstructive hydrocephalus suspected. There are no extra-axial collections. There are no acute calvarial fractures. Bilateral cataract surgery. Small left frontal scalp contusion. The visualized sinuses and mastoid air cells are well aerated. CERVICAL CT: There is moderate mid and lower cervical disc disease. Overall moderate cervical arthrop athy There is no evidence of acute cervical fracture. The odontoid process is intact. Pre-dens spac e is normal. Prevertebral soft tissue is normal. There are no soft tissue abnormalities identified. There is no disc space widening or traumatic vertebral body subluxation suspected. A detailed level by level evaluation of spondylosis can be added as addendum if requested. IMPRESSION: 1. No acute intracranial findings or cervical fracture. 2. Small left frontal scalp contusion. 3. Cervical spondylosis. 4. Age-related intracranial findings. Reviewed, dictated and finalized at location A. IMPRESSION: 1. No acute intracranial findings or cervical fracture. 2. Small left frontal scalp contusion. 3. Cervical spondylosis. 4. Age-related intracranial findings.
[2020-03-22 17:35] VITALS: BP 141/45; PULSE 76; RESP 18; TEMP 36.6; O2SAT 99
--- NOTE | 2020-03-22 18:32 | ED.HEATRA ---
HPI - Head Injury General Chief complaint: Head Injury Stated complaint: FALL HEAD TRAUMA Time Seen by Provider: 03/22/20 18:23 Source: patient and EMS Limitations: no limitations History of Present Illness HPI Narrative: Patient got discharged from our hospital today after 6 days of hospitalization, went to home, climbing stairs, her feet got tangled and fell, left forehead hematoma, denies loss of consciousness, headache, neck pain or any other injuries. Related Data Home Medications Medication Instructions Recorded Confirmed aspirin 81 mg tablet,delayed 81 mg PO DAILY 06/17/19 03/19/20 release multivitamin 1 tablet PO DAILY 06/17/19 03/19/20 acetaminophen 500 mg tablet 1,000 mg PO Q6H PRN tablet 10/04/19 03/19/20 omega-3 fatty acids 1,000 mg 1,000 mg PO TID cap 10/04/19 03/19/20 capsule atorvastatin 40 mg DAILY 03/19/20 03/19/20 bumetanide 2 mg DAILY 03/19/20 03/19/20 Allergies Allergy/AdvReac Type Severity Reaction Status Date / Time diltiazem Allergy Unknown Anxiety Verified 03/22/20 17:41 Review of Systems Review of Systems: Narrative: CONSTITUTIONAL: Denies fever, chills, or sweats. EYES: Denies visual changes, redness, or discharge. ENT: Denies rhinorrhea, congestion, sore throat, or otalgia. CARDIOVASCULAR: Denies chest pain, palpitations, or edema. RESPIRATORY: Denies cough or dyspnea. GASTROINTESTINAL: Denies abdominal pain, nausea, vomiting, or diarrhea. GENITOURINARY: Denies dysuria or hematuria. SKIN: Denies rash or itching. MUSCULOSKELETAL: Denies back pain, joint pain, or myalgia. NEUROLOGIC: Denies headache, numbness, or weakness. PSYCHIATRIC: Denies anxiety or depression. [facility] Past Medical History Medical History Anxiety Diabetes HTN (hypertension) Hypercholesterolemia Hypothyroid Surgical History Surgical History H/O right nephrectomy for renal cell CA about 1999 Family History Family History Father Family history of heart disease in male family member before age 55 Other Diabetes mellitus Family history of arthritis Family history of cardiovascular disease Family history of malignant neoplasm Hypertension Social History Social History Smoking status: Never smoker Alcohol intake: never Substance use: never Substance use type: does not use Additional living arrangements comments: Resides with sister. 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 Gender identity (if verbalized by the patient): Female Spiritual care concerns: Yes (pt would like to see manager contact) Agree to blood products: Yes Exam Narrative: Exam Narrative: General appearance: Well-developed, well-nourished, morbidly obese, daughter at the bedside Skin: Normal color Head: Normocephalic, 2 cm left forehead hematoma Eyes: Clear conjunctiva ENT: Oropharynx normal, ears normal, nose normal Neck: Supple, nontender Chest and respiratory: Airway patent, no respiratory distress, no accessory muscle use Heart: Regular rate/rhythm Abdomen: Soft, nontender, no organomegaly, quiet bowel sounds Vascular: Normal peripheral pulses, normal capillary refill. Musculoskeletal: Normal range of motion, nontender back Neurologic: Alert and oriented ?3, PIANO TECHNICIAN is normal as tested, no gross motor deficit Course Course Emergency Course: Stable Vital Signs Vital signs: Vital Signs Temperature 36.6 C 03/22/20 17:35 Pulse Rate 76 03/22/20 17:35 Respiratory Rate 18 03/22/20 17:35 Blood Pr
[2020-03-22 18:48] VITALS: BP 149/71; PULSE 70; RESP 12; O2SAT 99
[2020-03-22 19:00] VITALS: BP 153/75; PULSE 71; RESP 20; O2SAT 97
== END 2020-03-22 19:40 | disposition home or self-care (01) ==
PROVIDERS: Emergency Provider Emergency Medicine; PCP Internal Medicine
DX: S00.83XA Contusion of other part of head, initial encounter (principal); Z79.82 Long term (current) use of aspirin; E11.9 Type 2 diabetes mellitus without complications; I10 Essential (primary) hypertension; E78.00 Pure hypercholesterolemia, unspecified; E03.9 Hypothyroidism, unspecified; Z79.4 Long term (current) use of insulin; W10.9XXA Fall (on) (from) unspecified stairs and steps, initial encounter
CPT/HCPCS: 70450; 72125; 99284

== ENCOUNTER 2020-10-27 16:11 | Observation (INO) | payer MEDICARE, SELFPAY ==
--- NOTE | ~2020-10-27 | XR_ITS ---
EXAMINATION: XR chest 2V DATE: 10/28/2020 10:46 INDICATION: Shortness of breath. TECHNIQUE: Frontal and lateral views of the chest were obtained. COMPARISON: Chest single view 06/12/2019, CT abdomen and pelvis 12/29/2011 FINDINGS: Sensitivity is mildly decreased by obesity. A calcified left lung nodule and calcified left hilar lymph nodes are consistent with old granulomatous disease. No pneumonia, pleural effusion, or pneumothorax. The heart size is normal. IMPRESSION: 1. No acute cardiopulmonary disease. Reviewed, dictated and finalized at location A.
--- NOTE | ~2020-10-27 | US_ITS ---
EXAMINATION: US renal BI DATE: 10/28/2020 10:32 INDICATION: Acute kidney injury. TECHNIQUE: Multiple ultrasound grayscale images of the kidneys were obtained. COMPARISON: Ultrasound 12/29/2011, CT abdomen and pelvis 12/29/2011 FINDINGS: The right kidney is absent. The left kidney measures 10.8 x 5.1 x 4.8 cm. The left kidney demonstrate s normal parenchymal echogenicity. There is a 3.6 cm cyst in left kidney. There is no hydronephrosis. The bladder is normal. IMPRESSION: 1. Normal left kidney size. No hydronephrosis. 2. Right nephrectomy. Reviewed, dictated and finalized at location A.
[2020-10-27 16:20] VITALS: BP 161/50; PULSE 68; RESP 14; TEMP 36.8
--- NOTE | 2020-10-27 16:38 | ECG_ITS ---
Measurements Intervals [place] Rate: 53 P: [place]: 0 QRS: 54 QRSD: 154 T: 13 QT: 437 QTc: 412 Interpretive Statements SINUS RHYTHM RIGHT BUNDLE BRANCH BLOCK LOW VOLTAGE- PRECORDIAL LEADS BASELINE ARTIFACT- I, II, III, AVR, AVL, AVF, V1-V6 ABNORMAL ECG Electronically Signed On 10-27-2020 20:00:30 CDT by Ang Dee D.O.
--- NOTE | 2020-10-27 16:49 | ED.GENADULT ---
HPI - General Adult General Chief complaint: Recheck/Abnormal Lab/Rx Stated complaint: high potassium Time Seen by Provider: 10/27/20 16:35 Source: patient and family Mode of arrival: ambulatory Limitations: no limitations History of Present Illness HPI narrative: Patient 80 years old white female came to the emergency room with her niece because of abnormal blood test. Patient had blood work-up yesterday for regular checkup and had a phone call by her family physician to go to the emergency room because of elevated potassium and dehydration. Patient is asymptomatic. Patient denies any fever, chills, nausea, vomiting, chest pain, shortness of breath, abdominal pain, back pain or urinary symptoms. Patient denies any history of COVID-19 infection, did not receive COVID-19 vaccine yet Related Data Home Medications Medication Instructions Recorded Confirmed aspirin 81 mg tablet,delayed 81 mg PO DAILY 06/17/19 08/07/20 release multivitamin 1 tablet PO DAILY 06/17/19 08/07/20 acetaminophen 500 mg tablet 1,000 mg PO Q6H PRN tablet 10/04/19 08/07/20 omega-3 fatty acids 1,000 mg 1,000 mg PO TID cap 10/04/19 08/07/20 capsule Allergies Allergy/AdvReac Type Severity Reaction Status Date / Time diltiazem Allergy Unknown Anxiety Verified 08/07/20 14:32 Review of Systems Review of Systems: Narrative: CONSTITUTIONAL: Denies fever, chills, or sweats. EYES: Denies visual changes, redness, or discharge. ENT: Denies rhinorrhea, congestion, sore throat, or otalgia. CARDIOVASCULAR: Denies chest pain, palpitations, or edema. RESPIRATORY: Denies cough or dyspnea. GASTROINTESTINAL: Denies abdominal pain, nausea, vomiting, or diarrhea. GENITOURINARY: Denies dysuria or hematuria. SKIN: Denies rash or itching. MUSCULOSKELETAL: Denies back pain, joint pain, or myalgia. NEUROLOGIC: Denies headache, numbness, or weakness. PSYCHIATRIC: Denies anxiety or depression. [facility] Past Medical History Medical History Anxiety Diabetes HTN (hypertension) Hypercholesterolemia Hypothyroid Surgical History Surgical History H/O right nephrectomy for renal cell CA about 1999 Family History Family History Father Family history of heart disease in male family member before age 55 Other Diabetes mellitus Family history of arthritis Family history of cardiovascular disease Family history of malignant neoplasm Hypertension Social History Social History Alcohol intake: never Substance use: never Substance use type: does not use Additional living arrangements comments: Resides with sister. 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 Gender identity (if verbalized by the patient): Female Spiritual care concerns: Yes (pt would like to see assistant attorney general) Agree to blood products: Yes Exam Narrative: Exam Narrative: General appearance: Well-developed, well-nourished Skin: Normal color Head: Normocephalic, nontraumatic Eyes: Clear conjunctiva ENT: Oropharynx normal, ears normal, nose normal Neck: Supple, nontender Chest and respiratory: Airway patent, no respiratory distress, no accessory muscle use Heart: Regular rate/rhythm Abdomen: Soft, nontender, no organomegaly, quiet bowel sounds Vascular: Normal peripheral pulses, normal capillary refill. Musculoskeletal: Normal range of motion, nontender back Neurologic: Alert and oriented ?3, SECOND SHIFT SUPERVISOR is normal as tested, no gross motor deficit Course Course Emergency Course: Stable
[2020-10-27 17:11] LABS: Basophils Percent Auto 0.3 % (0.2-1.2); Eosinophils Absolute Auto 0.2 K/mm3 (0-0.3); Eosinophils Percent Auto 2.2 % (0-4.4); Hematocrit 29.1 % (37.0-47.0); Hemoglobin 9.6 g/dL (12.0-15.0); Immature Granulocyte Absolute 0.07 K/mm3 (0.00-0.031); Lymphocytes Absolute Auto 0.96 K/mm3 (0.9-3.2); Lymphocytes Percent Auto 14.2 % (18.3-44.2); Mean Corpuscular Hemoglobin 30.4 pg (26-34); Mean Corpuscular Volume 92.1 fl (80-100); Mean Platelet Volume 10.6 fl (7.4-10.4); Monocytes Absolute Auto 0.7 K/mm3 (0.1-0.6); Monocytes Percent Auto 10.1 % (2.6-8.5); Neutrophils Absolute Auto 4.9 K/mm3 (1.3-6.7); Neutrophils Percent Auto 72.2 % (45.5-73.1); Platelet Count Result 251 k/mm3 (150-375); Red Blood Count 3.16 M/mm3 (4.2-5.4); Red Cell Distribution Width 13.2 % (11.5-14.5); White Blood Count 6.8 K/mm3 (4.5-10.0)
[2020-10-27 17:29] LABS: Alanine Aminotransferase 11 U/L (4-35); Albumin Level 3.9 g/dL (3.5-5.1); Alkaline Phosphatase 44 U/L (38-126); Anion Gap 7 mmol/L (8-16); Aspartate Amino Transferase 33 U/L (14-36); Bilirubin,Total 0.5 mg/dL (0.2-1.3); Blood Urea Nitrogen 80 mg/dL (7-17); Calcium 9.3 mg/dL (8.4-10.2); Carbon Dioxide 27 mmol/L (22-30); Chloride 99 mmol/L (98-107); Estimated CRCL calculation 27 ml/min; Estimated Glomerular Filt Rate 29; Glucose 101 mg/dL (65-105); Potassium 6.2 mmol/L (3.4-5.0); Sodium 133 mmol/L (137-145)
[2020-10-27] MEDS: SODIUM CHLORIDE 0.9% IV 1,000 ML 999 ML IV CONT (18:00)
[2020-10-27] MEDS: INSULIN HUMAN REGULAR (*BKC) 100 UNITS/ML 10 UNITS IV PUSH (18:00)
[2020-10-27] MEDS: SODIUM POLYSTYRENE SULFONONATE 15 GM/60 ML BTL 30 GM PO (18:00)
[2020-10-27] MEDS: DEXTROSE 50% 25 GM/50 ML SYRINGE IV PUSH (18:00)
[2020-10-27] MEDS: CALCIUM CHLORIDE 1,000 MG/10 ML SYRINGE 1000 MG IV PUSH (18:15)
[2020-10-27] MEDS: SODIUM BICARBONATE 8.4% 50 MEQ/50 ML SYRINGE IV PUSH (18:16)
[2020-10-27 18:54] VITALS: BP 167/87; PULSE 67; RESP 12; O2SAT 100
[2020-10-27 19:16] LABS: Add Urine Microscopic? YES; Appearance Urine Clear (Clear); Bilirubin Urine Negative (Negative); Blood Urine Negative (Negative); Color Urine Straw (Yellow); Glucose Urine UA Negative (Negative); Ketones Urine Negative (Negative); Leukocyte Esterase Ur Trace LEU/UL (Negative); Mucus Urine Rare /lpf; Nitrate Urine Negative (Negative); Protein Urine Negative (Negative); RBC Urine 0-2 /hpf (0-2); Specific Grav Ur 1.006 (1.001-1.035); Squamous Epithelial Cell Urine Rare /hpf (Few); Urobilinogen Urine Negative mg/dL (<2.0); WBC Urine 0-3 /hpf
[2020-10-27 20:00] VITALS: PULSE 82
--- NOTE | 2020-10-27 20:00 | ADMGEN ---
This patient, Martine Short, was admitted to Medical Room 340-01. Patient/family oriented to hospital policies and general routines including ID bracelet, bed and alarms, visiting hours, pain management, procedures, bathroom and other care routines, personal items, smoking policy, room service/diet, and visiting hours. Information on how to activate the Rapid Response Team has been discussed. Patient/Family are encouraged to report perceived risks to care and to ask questions if they do not understand what they are told or what they should do.
--- NOTE | 2020-10-27 20:00 | PM.IMHP ---
H&P: HPI History of Present Illness Date/Time: 10/27/20 20:00 Chief Complaint: Abnormal labs. Narrative: This is a 80-year-old female with history of kidney cancer status post nephrectomy in 1999, insulin-dependent diabetes, hypertension, hyperlipidemia, and anemia who presented to the emergency department earlier today via private vehicle from home for further evaluation of abnormal labs drawn yesterday in anticipation of a routine doctor's appointment. She has been feeling in her usual state of health and has no specific complaints thus she is a bit anxious and concerned that her routine labs came back abnormal yesterday. Labs drawn today in the emergency department confirm an increase in creatinine from baseline as well as hyperkalemia and she is being admitted in this setting. She has a good appetite and has been eating and drinking as usual, typically drinking between 40 and 50 ounces of water a day. She has been on bumetanide and lisinopril for several years and has not had any recent changes in dosing. She is not on potassium supplements at home and does not use NSAIDs. She has not noticed a change in urine output. She also denies fluid retention, shortness of breath, confusion, nausea, weakness, and cramping. No syncope or near syncope. Review of Systems Review of Systems: Narrative: Twelve systems were reviewed with pertinent positives and negatives as per HPI. She denies fever, chills, and sweats. No recent cold or flu symptoms. She denies exposure to those positive for COVID-19. No recent falls. She ambulates with a Rollator or a cane. She believes her diabetes is well controlled. No significant highs or lows recently. No blurry vision, polydipsia, or polyuria (although she urinates more than she wants to due to being on diuretics). Except as documented, all other systems were reviewed and are negative. [facility] Past Medical History Medical History (Updated 10/27/20 @ 22:46 by Ashtyn Gao PA-C) Anxiety Chronic anemia Depression Hyperlipidemia Hypertension Hypothyroidism Insulin dependent type 2 diabetes mellitus Osteoarthritis Renal cell carcinoma Status post nephrectomy. Mitra (2011) Surgical History Surgical History (Updated 10/27/20 @ 22:42 by Ashtyn Gao PA-C) History of right nephrectomy (~1999) For renal cell carcinoma. Family History Family History Father Family history of heart disease in male family member before age 55 Diabetes mellitus Family history of cardiovascular disease Family history of malignant neoplasm Hypertension Mother Family history of arthritis Sibling Family history of heart disease in male family member before age 55 Social History Social History (Updated 10/27/20 @ 22:43 by Ashtyn Gao PA-C) Social History: Surrogate decision maker: Gifty Salmeron, niece. Code status: Full code. Smoking status: Never smoker Alcohol intake: never Substance use: never Substance use type: does not use Additional living arrangements comments: The patient lives in [place] with her hali campos. 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 Gender identity (if verbalized by the patient): Female Sexual Orientation (if Verbalized by the Patient): Straight or Heterosexual Spiritual care concerns: Yes (WOULD LIKE TO TALK TO COMMERCIAL DEVELOPMENT MANAGER) Agree to blood products: Yes Meds Home Medications and Allergies Home Medications Medication Instructions Recorded Confirmed Type aspirin 81 mg tablet,delayed 81 mg PO DAILY 06/17/19 08/07/20 History release multivitamin 1 tablet PO DAILY 06/17/19 08/07/20 History blood sugar diagnostic #400 each 07/26/19 08/07/20 Rx blood-glucose meter #1 each 07/26/19 08/07/20 Rx lancets 33 gauge #400 each 07/26/19 08/07/20 Rx insulin syringe-needle U-100 1 mL #200 each 08/20/19 08/07/20 Rx 25 x 1 acetaminophen 500 mg
[2020-10-27 20:51] VITALS: BP 150/50; PULSE 83; RESP 15; TEMP 36.6; O2SAT 98
[2020-10-27 20:57] VITALS: BMI 43.5
[2020-10-27 21:12] LABS: Glucose Point of Care 103 mg/dl (65-105)
[2020-10-27] MEDS: SODIUM CHLORIDE 0.9% IV 1,000 ML 125 ML IV CONT (21:24)
[2020-10-27 21:39] LABS: Anion Gap 9 mmol/L (8-16); Blood Urea Nitrogen 68 mg/dL (7-17); Calcium 10.2 mg/dL (8.4-10.2); Carbon Dioxide 25 mmol/L (22-30); Chloride 103 mmol/L (98-107); Estimated CRCL calculation 27 ml/min; Estimated Glomerular Filt Rate 29; Glucose 106 mg/dL (65-105); Potassium 4.9 mmol/L (3.4-5.0); Sodium 137 mmol/L (137-145)
[2020-10-28] VITALS (10 sets, daily range): BP systolic 124–148; BP diastolic 38–88; PULSE 67–90; RESP 14–20; TEMP 36.7–36.8; O2SAT 95–97
--- NOTE | 2020-10-28 | ECHO_ITS ---
Patient Info Name: Martine Short Age: 80 years : 1940 Gender: Female Ht: 61 in Wt: 230 lbs BSA: 2.18 m2 Technical Quality: Poor Exam Date: 10/28/2020 11:24 AM Exam Location: [facility] Pulmonary Patient Status: Inpatient Admit Date: 10/27/2020 Staff Ordering Physician: Keila Walsh PA-C Medical Orderly: Martine Laura RDCS Attending Provider: Keila Walsh PA-C Referring Physician: Jillian KATZ; Exam Type: CA echo dop color flow w con Study Info Complete two-dimensional, color flow and Doppler transthoracic echocardiogram is performed with contrast to opacify the left ventricle and to improve the deliniation of the left ventricle endocardial borders. Contrast/Agitated Saline Contrast/Ag. Saline: Definity Amount: 4.00 ml Summary 1. Suboptimal image quality. Normal LV size, mild LVH, hyperdynamic LV systolic function, EF more than 70%. Resting LVOT gradient 9 mmHg. Grade 1 diastolic dysfunction. Mild left atrial enlargement. Mitral annular calcification, mild MR. Aortic valve is not well visualized. Maximum velocity 2.7 m/sec, mean gradient 15 mmHg, mild aortic stenosis with valve area 1.8 cm2. Unable to assess RVSP due to inadequate TR jet. Left Ventricle Left ventricular chamber dimension is normal. Left ventricular systolic function is hyperdynamic, estimated at >70%. There is mildly increased left ventricular wall thickness. The left ventricular diastolic function is grade I diastolic dysfunction. Right Ventricle Right ventricular chamber dimension is normal. Right ventricular systolic function is normal. Left Atria Left atrial chamber dimension is mildly enlarged. Right Atria Right atrial chamber dimension is normal. Aortic Valve The aortic valve is not well visualized. Pulmonic Valve The pulmonic valve is not well visualized. There is mild pulmonic regurgitation. Mitral Valve There is trace mitral valve regurgitation. There is mild mitral valve calcification. Tricuspid Valve The tricuspid valve leaflets are normal. Pericardium/Pleural The pericardium appears epicardial fat pad. Left Ventricular Outflow Tract Name Value Normal LVOT 2D LVOT Diameter 2.39 cm LVOT Doppler LVOT Peak Gradient 9 mmHg LVOT Mean Gradient 5 mmHg LVOT VTI 50.02 cm LVOT VTI/AV VTI Ratio 0.85 LVOT Stroke Volume 223.84 ml LVOT CO 16.72 l/min LVOT CI 7.67 L/min/m2 Pulmonic Valve Name Value Normal PV Doppler PV Peak Gradient 7 mmHg Mitral Valve Name Value Normal
[2020-10-28 05:41] LABS: Hematocrit 28.9 % (37.0-47.0); Hemoglobin 9.6 g/dL (12.0-15.0); Mean Corpuscular HGB Conc 33.2 g/dl (32-36); Mean Corpuscular Hemoglobin 30.7 pg (26-34); Mean Corpuscular Volume 92.3 fl (80-100); Mean Platelet Volume 10.8 fl (7.4-10.4); Platelet Count Result 262 k/mm3 (150-375); Red Blood Count 3.13 M/mm3 (4.2-5.4); Red Cell Distribution Width 13.4 % (11.5-14.5)
[2020-10-28 05:52] LABS: Alanine Aminotransferase 11 U/L (4-35); Albumin Level 3.5 g/dL (3.5-5.1); Alkaline Phosphatase 47 U/L (38-126); Anion Gap 6 mmol/L (8-16); Aspartate Amino Transferase 22 U/L (14-36); Bilirubin,Total 0.6 mg/dL (0.2-1.3); Blood Urea Nitrogen 59 mg/dL (7-17); Calcium 9.3 mg/dL (8.4-10.2); Carbon Dioxide 27 mmol/L (22-30); Chloride 106 mmol/L (98-107); Estimated CRCL calculation 29 ml/min; Estimated Glomerular Filt Rate 31; Glucose 127 mg/dL (65-105); Magnesium 2.3 mg/dL (1.6-2.3); Sodium 139 mmol/L (137-145)
[2020-10-28 05:58] LABS: Hemoglobin A1C 5.8 % (<5.7)
[2020-10-28] MEDS: LEVOTHYROXINE SODIUM 112 MCG TABLET PO (06:17)
[2020-10-28 07:41] LABS: Glucose Point of Care 125 mg/dl (65-105)
[2020-10-28] MEDS: hydrALAZINE HCL 50 MG TABLET PO ×4 (08:00→21:25)
[2020-10-28] MEDS: ASPIRIN 81 MG ENTERIC TABLET PO (08:00)
[2020-10-28] MEDS: CYANOCOBALAMIN 1,000 MCG TABLET 1000 MCG PO (08:01)
[2020-10-28] MEDS: ENOXAPARIN 40 MG/0.4 ML SYRINGE SUB-Q (08:01)
[2020-10-28] MEDS: MULTIVITAMINS THERAPEUTIC TAB (*BKC) 1 TABLET PO (08:01)
[2020-10-28] MEDS: OMEGA 3 POLYUNSAT FATTY ACIDS 1 GM CAP PO ×3 (08:01→17:14)
[2020-10-28] MEDS: ATORVASTATIN 40 MG TABLET PO (08:02)
[2020-10-28] MEDS: CITALOPRAM HYDROBROMIDE 20 MG TABLET PO (08:02)
[2020-10-28] MEDS: TOLNAFTATE 1% POWDER 45 GM BTL 1 APPLIC TOPICAL ×2 (08:02→21:25)
[2020-10-28] MEDS: SODIUM CHLORIDE 0.9% IV 1,000 ML 100 ML IV CONT (08:03)
[2020-10-28] MEDS: INSULIN DETEMIR 100 UNITS/ML 10 UNITS SUB-Q ×2 (08:37→17:17)
[2020-10-28] MEDS: CHOLECALCIFEROL 1,000 UNITS TABLET 1000 UNITS PO (09:45)
--- NOTE | 2020-10-28 09:58 | PM.PNNEP ---
Subjective Date/time seen: 10/28/20 09:58 Interval history: Martine is a very pleasant 80-year-old lady who has diabetes, hypertension, hyperlipidemia, renal cell carcinoma status post unilateral nephrectomy, hypothyroidism, who came in the hospital because of abnormal labs. She was going to see her physician and did routine labs and was found have an elevated creatinine and potassium so she was sent to the ER. At the time the patient was feeling fine. She had no nausea, vomiting, diarrhea, fevers, chills, bloody urine, foamy urine, kidney stones, or bladder infections. No pain with urination. She was not taken any unusual [id number] medications, specifically no nonsteroidal anti-inflammatory agents. She has not changed her prescription medications lately. She has not been on any antibiotics lately or had any infections. The patient was seen in the emergency room and found to have a creatinine of 1.85 and a potassium of 6.1. She was admitted. She was given Kayexalate. Her potassium is now down to 5.0. Her creatinine improved a little bit to 1.6. Renal consultation was requested. She has never had a heart attack or a stroke. She says that she had laser therapy for retinopathy many years ago but has not had any issues since then. She does not smoke or drink Review of Systems Cardiovascular: Cardiovascular: Reports no additional cardiovascular complaints Respiratory: Respiratory: Reports no additional respiratory complaints Gastrointestinal: Gastrointestinal: Reports no additional gastrointestinal complaints Genitourinary: Genitourinary: Reports no additional female genitourinary complaints Exam Narrative: Exam Narrative: WDWN in NAD skin no rash head ncat lungs clear cor reg no rub abd BS+ nontender and soft ext no edema. Objective Data Vital Signs Vital Signs: Vital Signs - 24 hr 10/27/20 16:20 10/27/20 18:54 10/27/20 20:00 Temperature 36.8 C Pulse Rate 68 67 82 Respiratory Rate 14 12 Blood Pressure 161/50 H 167/87 H Pulse Oximetry 100 10/27/20 20:51 10/28/20 00:00 10/28/20 04:02 Temperature 36.6 C Pulse Rate 83 90 88 Respiratory Rate 15 Blood Pressure 150/50 H Pulse Oximetry 98 10/28/20 04:05 10/28/20 08:00 10/28/20 08:55 Temperature 36.8 C Pulse Rate 87 81 Respiratory Rate 16 Blood Pressure 140/45 L Pulse Oximetry 97 95 Intake/Output Intake/Output: Intake & Output 10/25/20 10/26/20 10/27/20 10/28/20 23:59 23:59 23:59 23:59 Intake Total 1000 1225 Output Total 750 625 Balance 250 600 Meds/Results Medications: Active Medications Generic Name Dose Route Start Last Admin Trade Name Freq PRN Reason Stop Dose Admin Acetaminophen 1,000 mg 10/27/20 23:30 Acetaminophen 500 Mg Tablet PO Q6H PRN Pain rated 1-3 or fever Aspirin 81 mg 10/28/20 09:00 10/28/20 08:00 Aspirin 81 Mg Enteric Tablet PO 81 mg DAILY HAYDE Administration Atorvastatin Calcium 40 mg 10/28/20 09:00 10/28/20 08:02 Atorvastatin 40 Mg Tablet PO 40 mg DAILY HAYDE Administration Citalopram Hydrobromide 20 mg 10/28/20 09:00 10/28/20 08:02 Citalopram Hydrobromide 20 Mg Tablet PO 20 mg DAILY HAYDE Administration Cyanocobalamin 1,000 mcg 10/28/20 09:00 10/28/20 08:01 Cyanocobalamin 1,000 Mcg Tablet PO 1,000 mcg DAILY HAYDE Administration Dextrose 12.5 gm 10/27/20 22:52 Dextrose 50% 25 Gm/50 Ml Syringe IV PUSH PRN PRN Hypoglycemia Protocol Enoxaparin Sodium 40 mg 10/28/20 09:00 10/28/20 08:01 Enoxaparin 40 Mg/0.4 Ml Syringe SUB-Q 40 mg DAILY HAYDE Administration Fish Oil 1 gm 10/28/20 09:00 10/28/20 08:01 [place] 3 Polyunsat Fatty Acids 1 Gm Cap PO 1 gm TID HAYDE Administration Glucagon 1 mg 10/27/20 22:52 Glucagon For Inj 1 Mg Vial IM PRN PRN Hypoglycemia Protocol Glucose 15 gm 10/27/20 22:52 Glucose Oral Gel 15 Gm Of Glucse In 37.5 Gm Tube PO PRN PRN Hy
--- NOTE | 2020-10-28 10:01 | PM.CNNEP ---
Assessment and Plan Assessment and plan (1) Acute kidney injury: Code(s): N17.9 - Acute kidney failure, unspecified Status: Acute Assessment and Plan: Martine has acute kidney injury. Her baseline creatinine is normal. The patient was on diuretics. Perhaps she just does not need that quantity of diuretics. She has a little dehydrated. However her blood pressure was not low when she came in and mucous members are not necessarily dry. Her creatinine has improved marginally since giving IV fluids and holding her diuretics. Her lisinopril was also held. Sometimes if someone is dehydrated the lisinopril can exaggerated the elevation of creatinine in response to the dehydration. Obstruction can always do this so we will see what her ultrasound shows. Rhabdomyolysis is always a possibility as well however her urine shows no positive dipstick for blood so I doubt this. Other causes such as glomerulonephritis, vascular disease, and interstitial nephritis are unlikely in this clinical scenario. (2) Hyperkalemia: Code(s): E87.5 - Hyperkalemia Status: Acute Assessment and Plan: Her potassium was high. This is probably due to the lisinopril plus her elevated creatinine. This has improved. We will keep an eye on this going forward. (3) Hypertension: Code(s): I10 - Essential (primary) hypertension Status: Acute Assessment and Plan: She has had hypertension for a long time. She is normally on Hydralazine and lisinopril for this. These are on hold. Will watch things as we go. (4) Chronic anemia: Code(s): D64.9 - Anemia, unspecified Status: Acute Assessment and Plan: Etiology of this is unclear. Will check iron levels B12 and folate. (5) Hx of renal cell cancer: Code(s): Z85.528 - Personal history of other malignant neoplasm of kidney Status: Acute Assessment and Plan: This was resected 20 years ago and MASSIMO (6) Insulin dependent type 2 diabetes mellitus: Code(s): E11.9 - Type 2 diabetes mellitus without complications; Z79.4 - long-term (current) use of insulin Status: Acute Assessment and Plan: On Accu-Cheks and sliding-scale insulin (7) Hypothyroidism: Code(s): E03.9 - Hypothyroidism, unspecified Status: Acute Assessment and Plan: On supplements (8) Hyperlipidemia: Code(s): E78.5 - Hyperlipidemia, unspecified Status: Acute Assessment and Plan: On atorvastatin History of Present Illness Reason for Consult Consult date: 10/28/20 Chief Complaint Chief complaint: Hyperkalemia, LÁZARO History of Present Illness Narrative: Martine is a very pleasant 80-year-old lady who has diabetes, hypertension, hyperlipidemia, renal cell carcinoma status post unilateral nephrectomy, hypothyroidism, who came in the hospital because of abnormal labs. She was going to see her physician and did routine labs and was found have an elevated creatinine and potassium so she was sent to the ER. At the time the patient was feeling fine. She had no nausea, vomiting, diarrhea, fevers, chills, bloody urine, foamy urine, kidney stones, or bladder infections. No pain with urination. She was not taken any unusual getm-dbz-crvvayf medications, specifically no nonsteroidal anti-inflammatory agents. She has not changed her prescription medications lately. She has not been on any antibiotics lately or had any infections. The patient was seen in the emergency room and found to have a creatinine of 1.85 and a potassium of 6.1. She was admitted. She was given Kayexalate. Her potassium is now down to 5.0. Her creatinine improved a little bit to 1.6. Renal consultation was requested. She has never had a heart attack or a stroke. She says that she had laser therapy for retinopathy many years ago but has not had any issues since then. She does not smoke or drink Review of Systems Constitutional: Constitutional: Repor
--- NOTE | 2020-10-28 10:28 | PM.IMPN ---
Progress Note: A&P Assessment and Plan (1) Acute kidney injury: Code(s): N17.9 - Acute kidney failure, unspecified Status: Acute Assessment and Plan: This is a 80-year-old female with history of renal cancer status post nephrectomy in 1999, insulin-dependent diabetes, hypertension, hyperlipidemia, and anemia who presented to the ER with abnormal labs drawn 10/26/20 for a routine doctor's appointment. She reports feeling well, normal urine output and no concerns or issues prior to arrival. Initial vitals showed She was afebrile, non tachycardic, normal respiratory rate, blood pressure 161/50, normal oxygenation on room air. Initial labs showed Normocytic anemia with hemoglobin of 9.6, hyponatremia at 136, hyperkalemia at 6.2, LÁZARO with creatinine 1.7, BUN 80, normal urinalysis with only trace leukocyte esterase with the weather signs of infection. Patient was admitted into the hospital With hyperkalemia and LÁZARO. She was started on IV fluids and given sodium bicarb, insulin, and calcium chloride for treatment of hyperkalemia. Patient was placed on telemetry and had a nephrology consultation room for further evaluation and monitoring. Bladder scan showed retention on 65 cc after voiding, normal. Patients renal function did not improve very much with IV fluids overnight Talked to the family support worker who is ordering further lab testing, renal ultrasound. If the renal ultrasound is normal then we will get some more light IV fluids normal saline at 75 cc an hour and recheck renal function electrolytes in the morning Will also get an echocardiogram because patient has no documented history of CHF even though she is on Bumex diuretic Continue monitoring intake and output Monitor fluid status to ensure we do not fluid overload Patient is otherwise asymptomatic at this time and we have no cause for her LÁZARO. Continue holding her lisinopril and Bumex Urinalysis does not show any signs of an infection is the cause Continue monitoring. Repeat labs in the morning. (2) Hyperkalemia: Code(s): E87.5 - Hyperkalemia Status: Acute Assessment and Plan: Potassium is 5.0 today. Continue monitoring give meds as needed. Telemetry shows normal sinus rhythm with a heart rate of 95 beats per minute, few PVCs otherwise no acute abnormality Will DC telemetry tomorrow if electrolytes are stable (3) Hypertension: Code(s): I10 - Essential (primary) hypertension Status: Acute Assessment and Plan: Blood pressure slightly elevated 140/45 this morning. Will continue monitoring since her holding her hypertensive medications at this time. (4) Chronic anemia: Code(s): D64.9 - Anemia, unspecified Status: Acute Assessment and Plan: Chronic normocytic anemia. Hemoglobin on arrival was 10, now it is 9 which is not uncommon after IV fluid hydration. Will continue to monitor H&H, no acute signs of any blood loss anemia at this time. Transfuse as needed to keep hemoglobin above 7. (5) Hypothyroidism: Code(s): E03.9 - Hypothyroidism, unspecified Status: Acute Assessment and Plan: TSH normal. Continue levothyroxine. (6) Insulin dependent type 2 diabetes mellitus: Code(s): E11.9 - Type 2 diabetes mellitus without complications; Z79.4 - [facility] (current) use of insulin Status: Acute Assessment and Plan: Hemoglobin A1c is well controlled at 5.8%. Continue home insulin. Glucose was 125 this morning. Continue monitoring glucose a.c. HS, hypoglycemic protocol, sliding scale insulin as stated (7) Depression with anxiety: Code(s): F41.8 - Other specified anxiety disorders Status: Acute Assessment and Plan: Continue
[2020-10-28 11:30] LABS: Creatine Kinase 80 U/L (30-135)
[2020-10-28 11:52] LABS: Iron 43 ug/dL (37-170)
[2020-10-28 12:03] LABS: Percent Iron Saturation 18 % (20-50)
[2020-10-28 12:26] LABS: Glucose Point of Care 104 mg/dl (65-105)
[2020-10-28] MEDS: PHENOL/SOD PHENO SPRAY CHERRY (*BKC) 1 SPRAY MUCOUS MEM (12:26)
[2020-10-28 12:32] LABS: Erythrocyte Sedimentation Rate > 140 mm/hr (0-20)
[2020-10-28 12:35] LABS: Hemoglobin 9.5 g/dL (12.0-15.0)
[2020-10-28 12:40] LABS: Folic Acid > 20.0 ng/mL (2.76->20)
[2020-10-28] MEDS: PANTOPRAZOLE SODIUM IV 40 MG VIAL IV PUSH ×2 (13:53→21:25)
[2020-10-28] MEDS: SODIUM CHLORIDE 0.9% IV 1,000 ML 75 ML IV CONT (13:53)
[2020-10-28] MEDS: EUCERIN CREAM 120 GM JAR 1 APPLIC TOPICAL (13:54)
[2020-10-28 17:06] LABS: Glucose Point of Care 112 mg/dl (65-105)
[2020-10-28 22:23] LABS: Glucose Point of Care 120 mg/dl (65-105)
[2020-10-29] VITALS: PULSE 68
[2020-10-29] MEDS: SODIUM CHLORIDE 0.9% IV 1,000 ML 75 ML IV CONT (02:19)
[2020-10-29 04:00] VITALS: PULSE 61
[2020-10-29 05:24] VITALS: BP 143/46; PULSE 78; RESP 18; TEMP 36.3; O2SAT 96
[2020-10-29 05:34] LABS: Hematocrit 26.5 % (37.0-47.0); Hemoglobin 8.7 g/dL (12.0-15.0); Mean Corpuscular HGB Conc 32.8 g/dl (32-36); Mean Corpuscular Hemoglobin 30.5 pg (26-34); Mean Platelet Volume 10.3 fl (7.4-10.4); Platelet Count Result 205 k/mm3 (150-375); Red Blood Count 2.85 M/mm3 (4.2-5.4); Red Cell Distribution Width 13.7 % (11.5-14.5); White Blood Count 5.3 K/mm3 (4.5-10.0)
[2020-10-29 05:55] LABS: Creatinine Urine 88.1 mg/dL; Total Protein Urine Random 10 mg/dL; Ur Ttl Prot Creatinine Ratio 0.11 mg/mg (0-0.20)
[2020-10-29 06:01] LABS: Sodium Urine Random 46 meq/L
[2020-10-29 06:02] LABS: Albumin Level 3.2 g/dL (3.5-5.1); Anion Gap 5 mmol/L (8-16); Blood Urea Nitrogen 40 mg/dL (7-17); Calcium 8.8 mg/dL (8.4-10.2); Carbon Dioxide 25 mmol/L (22-30); Chloride 111 mmol/L (98-107); Estimated CRCL calculation 36 ml/min; Estimated Glomerular Filt Rate 40; Glucose 92 mg/dL (65-105); Phosphorus 3.6 mg/dL (2.5-4.5); Potassium 4.4 mmol/L (3.4-5.0); Sodium 141 mmol/L (137-145)
[2020-10-29 06:27] LABS: Eosinophil Urine None Seen % (None Seen)
[2020-10-29] MEDS: LEVOTHYROXINE SODIUM 112 MCG TABLET PO (06:39)
[2020-10-29 08:00] VITALS: PULSE 84
[2020-10-29 08:07] LABS: Glucose Point of Care 111 mg/dl (65-105)
[2020-10-29] MEDS: CYANOCOBALAMIN 1,000 MCG TABLET 1000 MCG PO (08:39)
[2020-10-29] MEDS: ASPIRIN 81 MG ENTERIC TABLET PO (08:39)
[2020-10-29] MEDS: MULTIVITAMINS THERAPEUTIC TAB (*BKC) 1 TABLET PO (08:39)
[2020-10-29] MEDS: CHOLECALCIFEROL 1,000 UNITS TABLET 1000 UNITS PO (08:39)
[2020-10-29] MEDS: PANTOPRAZOLE SODIUM IV 40 MG VIAL IV PUSH (08:40)
[2020-10-29] MEDS: CITALOPRAM HYDROBROMIDE 20 MG TABLET PO (08:40)
[2020-10-29] MEDS: hydrALAZINE HCL 50 MG TABLET PO ×2 (08:40→12:08)
[2020-10-29] MEDS: ATORVASTATIN 40 MG TABLET PO (08:40)
[2020-10-29] MEDS: TOLNAFTATE 1% POWDER 45 GM BTL 1 APPLIC TOPICAL (08:42)
[2020-10-29] MEDS: EUCERIN CREAM 120 GM JAR 1 APPLIC TOPICAL (08:42)
[2020-10-29] MEDS: INSULIN DETEMIR 100 UNITS/ML 10 UNITS SUB-Q (08:48)
--- NOTE | 2020-10-29 11:11 | PM.PNNEP ---
Progress Note: A&P Assessment and Plan (1) Acute kidney injury: Code(s): N17.9 - Acute kidney failure, unspecified Status: Acute Assessment and Plan: Martine has acute kidney injury. Her baseline creatinine is normal. Renal ultrasound is negative. Urine electrolytes are non pre renal. Urine eosinophils are negative. CPK is normal. Her creatinine started at 1.85 and now is down to 1.3. She is off diuretics and lisinopril. She is getting IV fluids. Continue holding diuretics and lisinopril. Will give fluids 1 more day. (2) Hyperkalemia: Code(s): E87.5 - Hyperkalemia Status: Acute Assessment and Plan: Resolved. (3) Hypertension: Code(s): I10 - Essential (primary) hypertension Status: Acute Assessment and Plan: She has had hypertension for a long time. She is normally on Hydralazine and lisinopril for this. These are on hold. Will watch things as we go. (4) Chronic anemia: Code(s): D64.9 - Anemia, unspecified Status: Acute Assessment and Plan: Etiology of this is unclear. Iron levels are low. Will give some iron Await stool guaiacs. (5) Hx of renal cell cancer: Code(s): Z85.528 - Personal history of other malignant neoplasm of kidney Status: Acute Assessment and Plan: This was resected 20 years ago and MASSIMO (6) Insulin dependent type 2 diabetes mellitus: Code(s): E11.9 - Type 2 diabetes mellitus without complications; Z79.4 - intermediate project manager (current) use of insulin Status: Acute Assessment and Plan: On Accu-Cheks and sliding-scale insulin (7) Hypothyroidism: Code(s): E03.9 - Hypothyroidism, unspecified Status: Acute Assessment and Plan: On supplements (8) Hyperlipidemia: Code(s): E78.5 - Hyperlipidemia, unspecified Status: Acute Assessment and Plan: On atorvastatin Subjective Date/time seen: 10/29/20 11:11 Interval history: the patient's niece is in the room. Martine is feeling better today. She has no chest pain or shortness of breath. She has no nausea or vomiting. Review of Systems Cardiovascular: Cardiovascular: Reports no additional cardiovascular complaints Respiratory: Respiratory: Reports no additional respiratory complaints Gastrointestinal: Gastrointestinal: Reports no additional gastrointestinal complaints Genitourinary: Genitourinary: Reports no additional female genitourinary complaints Exam Narrative: Exam Narrative: WDWN in NAD skin no rash head ncat lungs clear cor reg no rub abd BS+ nontender and soft ext no edema. Objective Data Vital Signs Vital Signs: Vital Signs - 24 hr 10/28/20 12:00 10/28/20 12:47 10/28/20 16:00 Temperature 36.8 C Pulse Rate 67 78 72 Respiratory Rate 14 Blood Pressure 148/38 H Pulse Oximetry 96 10/28/20 20:00 10/28/20 20:41 10/29/20 00:00 Temperature 36.7 C Pulse Rate 78 76 68 Respiratory Rate 20 Blood Pressure 124/88 Pulse Oximetry 97 10/29/20 04:00 10/29/20 05:24 Temperature 36.3 C L Pulse Rate 61 78 Respiratory Rate 18 Blood Pressure 143/46 H Pulse Oximetry 96 Intake/Output Intake/Output: Intake & Output 10/26/20 10/27/20 10/28/20 10/29/20 23:59 23:59 23:59 23:59 Intake Total 1000 1945 1590 Output Total 750 775 300 Balance 250 1170 1290 Meds/Results Medications: Active Medications Generic Name Dose Route Start Last Admin Trade Name Freq PRN Reason Stop Dose Admin Acetaminophen 1,000 mg 10/27/20 23:30 Acetaminophen 500 Mg Tablet PO Q6H PRN Pain rated 1-3 or fever Aspirin 81 mg 10/28/20 09:00 10/29/20 08:39 Aspirin 81 Mg Enteric Tablet PO 81 mg DAILY HAYDE Administration Atorvastatin Calcium 40 mg 10/28/20 09:00 10/29/20 08:40 Atorvastatin 40 Mg Tablet PO 40 mg DAILY HAYDE Administration Citalopram Hydrobromide 20 mg 10/28/20 09:00 10/29/20 08:
--- NOTE | 2020-10-29 11:49 | PM.IMPN ---
Progress Note: A&P Assessment and Plan (1) Acute kidney injury: Code(s): N17.9 - Acute kidney failure, unspecified Status: Acute Assessment and Plan: This is a 80-year-old female with history of renal cancer status post nephrectomy in 1999, insulin-dependent diabetes, hypertension, hyperlipidemia, and anemia who presented to the ER with abnormal labs drawn 10/26/20 for a routine doctor's appointment. She reports feeling well, normal urine output and no concerns or issues prior to arrival. Initial vitals showed She was afebrile, non tachycardic, normal respiratory rate, blood pressure 161/50, normal oxygenation on room air. Initial labs showed Normocytic anemia with hemoglobin of 9.6, hyponatremia at 136, hyperkalemia at 6.2, LÁZARO with creatinine 1.7, BUN 80, normal urinalysis with only trace leukocyte esterase with the weather signs of infection. Patient was admitted into the hospital With hyperkalemia and LÁZARO. She was started on IV fluids and given sodium bicarb, insulin, and calcium chloride for treatment of hyperkalemia. Patient was placed on telemetry and had a nephrology consultation room for further evaluation and monitoring. Bladder scan showed retention on 65 cc after voiding, normal. Renal US normal. Patients renal function improved last night with IV fluids NS 75 cc/hr. Cr today is 1.30. Talked to the hand pattern marker who recommends to recheck labs in the morning, continue IV fluids at this time. Echocardiogram pending. Continue monitoring intake and output Monitor fluid status to ensure we do not fluid overload Patient is otherwise asymptomatic at this time and we have no cause for her LÁZARO, other than suspected dehydration from diuretic and JUNI. Continue holding her lisinopril and Bumex Urinalysis does not show any signs of an infection is the cause Continue monitoring. Repeat labs in the morning. (2) Hyperkalemia: Code(s): E87.5 - Hyperkalemia Status: Acute Assessment and Plan: Potassium is much improved with IV fluid hydration. Telemetry shows normal sinus rhythm with a heart rate of 95 beats per minute, few PVCs otherwise no acute abnormality Will DC telemetry tomorrow if electrolytes are stable (3) Hypertension: Code(s): I10 - Essential (primary) hypertension Status: Acute Assessment and Plan: Blood pressure slightly elevated 143/46 this morning. Will continue monitoring since her holding her hypertensive medications at this time. (4) Chronic anemia: Code(s): D64.9 - Anemia, unspecified Status: Acute Assessment and Plan: Chronic normocytic anemia. Hemoglobin on arrival was 10.4, now it is 8.7 which is not uncommon after IV fluid hydration. 10/28/20: The nurse called me around noon to informing that the patient was having a slight cough and had some sputum come up which was bright red in color. The patient states this never happened to her before. She had a few small episodes again in the afternoon. Continue to hold Lovenox for DVT prophylaxis. Recheck H&H was stable. SCDs for DVT prophylaxis. Patient is placed on a PPI 40 mg IV daily. Continue monitoring H&H, transfuse as needed if hemoglobin goes less than 7. The patient is not concerned, states it was a very small amount, denies anymore episodes today. Iron panel showing some iron deficiency anemia, with % Sat 18, Nephrology ordered IV Iron x2 and then we will put on PO Ferrous Sulfate at discharge. Normal Vit B12 and Folic acid Pending Stool Occult blood Will continue to monitor H&H, no acute signs of any blood loss anemia at this time. Transfuse as needed to keep hemoglobin above 7. (5) Hypothyroidism: Code(s): E03.9 - Hypothyroidism, unspecified Status: Acute Assessment an
[2020-10-29 11:54] LABS: Glucose Point of Care 104 mg/dl (65-105)
[2020-10-29 12:00] VITALS: PULSE 77
[2020-10-29] MEDS: IRON SUCROSE COMPLEX 200 MG in SODIUM CHLORIDE 0.9% IV 50 ML 120 MG IVPB (12:08)
[2020-10-29] MEDS: OMEGA 3 POLYUNSAT FATTY ACIDS 1 GM CAP PO ×2 (12:08)
[2020-10-29 12:27] LABS: Hematocrit 30.7 % (37.0-47.0); Hemoglobin 9.8 g/dL (12.0-15.0)
--- NOTE | 2020-10-29 13:16 | PM.DS ---
DS: Admitting Diagnosis Admitting Diagnosis Admitting Diagnosis: Abnormal labs DS: Discharge Diagnosis Discharge Diagnosis (1) Acute kidney injury: Code(s): N17.9 - Acute kidney failure, unspecified Status: Acute Assessment and Plan: This is a 80-year-old female with history of renal cancer status post nephrectomy in 1999, insulin-dependent diabetes, hypertension, hyperlipidemia, and anemia who presented to the ER with abnormal labs drawn 10/26/20 for a routine doctor's appointment. She reports feeling well, normal urine output and no concerns or issues prior to arrival. Initial vitals showed She was afebrile, non tachycardic, normal respiratory rate, blood pressure 161/50, normal oxygenation on room air. Initial labs showed Normocytic anemia with hemoglobin of 9.6, hyponatremia at 136, hyperkalemia at 6.2, LÁZARO with creatinine 1.7, BUN 80, normal urinalysis with only trace leukocyte esterase with the weather signs of infection. Patient was admitted into the hospital With hyperkalemia and LÁZARO. She was started on IV fluids and given sodium bicarb, insulin, and calcium chloride for treatment of hyperkalemia. Patient was placed on telemetry and had a nephrology consultation room for further evaluation and monitoring. Patient had no signs of urinary retention with normal post void residual. Urinalysis does not show any signs of an infection. Renal US normal. Urine electrolytes are non pre renal. Urine eosinophils are negative. CPK is normal. Echo showed Normal LV size, mild LVH, hyperdynamic LV systolic function, EF more than 70%. Grade 1 diastolic dysfunction. Mild left atrial enlargement. Mild aortic stenosis with valve area 1.8 cm2. Patients renal function improved with IV fluids NS 75 cc/hr to a Cr today of 1.30. Patient is otherwise asymptomatic at this time and believe her LÁZARO is associated with dehydration from Bumex and Lisinopril. Will continue to hold Bumex and lisinopril. Told her check her blood pressure twice daily. Total hold Bumex and monitor her weights, leg swelling, orthopnea, shortness of breath with exertion. Will check BMP in a few days. Otherwise the patient does have an appointment with her primary care provider on 11/07/20. I told her she can try getting in sooner or called him if she has any concerns or issues. The patient understands and agrees the plan all questions answered. (2) Hyperkalemia: Code(s): E87.5 - Hyperkalemia Status: Acute Assessment and Plan: Potassium normal. Check BMP next week. Telemetry shows normal sinus rhythm with a heart rate of 95 beats per minute, few PVCs otherwise no acute abnormality. Will DC telemetry (3) Hypertension: Code(s): I10 - Essential (primary) hypertension Status: Acute Assessment and Plan: Blood pressure slightly elevated 143/46 this morning. Told to check BP twice daily at home and follow up with PCP as scheduled. If BP continues to be elevated call PCP office for further recommendations. (4) Chronic anemia: Code(s): D64.9 - Anemia, unspecified Status: Acute Assessment and Plan: Chronic normocytic anemia. Hemoglobin on arrival was 10.4, now it is 8.7 which is not uncommon after IV fluid hydration. 10/28/20: The nurse called me around noon to informing that the patient was having a slight cough and had some sputum come up which was bright red in color. The patient states this never happened to her before. She had a few small episodes again in the afternoon. Continue to hold Lovenox for DVT prophylaxis. Recheck H&H was stable. SCDs for DVT prophylaxis while hospitalized. Patient is placed on a PPI 40 mg IV daily. Iron panel showing some iron deficiency anemia, with % Sat 18, Nephrology ordered IV Iron and then we will put on PO Ferrous Sulfate at discharge. Normal Vit B
[2020-10-31 10:32] LABS: Kappa\\Lambda Light Chains 1.71 (0.26-1.65); Lambda Light Chain 30.6 mg/L (5.7-26.3)
== END 2020-10-29 14:20 | disposition home or self-care (01) ==
LOC: ANHED 17:44 → ANH3MED 18:33
PROVIDERS: Internal Medicine Nephrology; Physician Assistant; Admitting Provider Internal Medicine; Emergency Provider Emergency Medicine; PCP Internal Medicine; Visit Provider Physician Assistant
DX: N17.9 Acute kidney failure, unspecified (principal); E87.5 Hyperkalemia; R05 Cough; I10 Essential (primary) hypertension; E11.9 Type 2 diabetes mellitus without complications; E78.5 Hyperlipidemia, unspecified; E03.9 Hypothyroidism, unspecified; D64.9 Anemia, unspecified; F41.8 Other specified anxiety disorders; Z79.82 Long term (current) use of aspirin; Z85.528 Personal history of other malignant neoplasm of kidney; Z90.5 Acquired absence of kidney; Z79.4 Long term (current) use of insulin
CPT/HCPCS: 36415; 71046; 76775; 80048; 80053; 80069; 80076; 81001; 82550; 82570; 82607; 82728; 82746; 82948; 83036; 83540; 83550; 83735; 83883; 84156; 84300; 84443; 85014; 85018; 85025; 85027; 85652; 85999; 93005; 96361; 96372; 96374; 96375; 96376; 97110; 97162; 97165; 97530; 97535; 99285; A9270; C8929; C9113; G0378; J1650; J1756; J1815; J7030; Q9957

== ENCOUNTER 2020-12-17 14:38 | Inpatient (IN) | payer MEDICARE, SELFPAY ==
--- NOTE | ~2020-12-17 | XR_ITS ---
EXAMINATION: XR chest 1V portable DATE: 12/17/2020 15:44 INDICATION: Shortness of breath. Increased weakness. TECHNIQUE: frontal view of the chest was obtained. COMPARISON: Chest radiograph dated 10/28/2020 FINDINGS: No focal airspace opacities, pulmonary edema, pleural effusion or pneumothorax. Calcified left hilar lymph nodes consistent with old granulomatous disease. Heart size is normal. IMPRESSION: 1. No acute cardiopulmonary disease. Reviewed, dictated and finalized at location A.
--- NOTE | ~2020-12-17 | CT_ITS ---
EXAMINATION: CT brain wo con DATE: 12/17/2020 18:04 INDICATION: Altered mental status. TECHNIQUE: Computed tomography (CT) of the head was performed without intravenous contrast. Sagittal and coronal reconstructions were performed. The mA was adjusted according to patient size. Iterative reconstruction technique was employed. The dose-length product was 681.00 mGy-cm. COMPARISON: head CT dated 03/22/2020 FINDINGS: No acute intracranial hemorrhage, acute infarction or abnormal extra axial fluid collection. A couple small old lacunar infarcts at the right basal ganglia. There is mild scattered white matter hypoatte nuation consistent with chronic small vessel ischemic disease. Symmetric prominence of the sulci and ventricles consistent with mild to moderate age-appropriate diffuse cerebral volume loss. No mass/mas s effect. Changes of bilateral intraocular lens replacement. The orbits and mastoid air cells are nor mal. Prominent mucosal thickening in the right sphenoid sinus with thickened sclerotic waters consiste nt with chronic sinusitis. Intracranial calcified cerebral atherosclerosis is noted. IMPRESSION: 1. No acute intracranial process. 2. 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 3. Age-related changes including mild to moderate diffuse volume loss and mild scattered white matter hypoattenuation consistent with chronic small vessel ischemic disease. 4. Chronic right sphenoid sinusitis. Reviewed, dictated and finalized at location A. IMPRESSION: 1. No acute intracranial process. 2. 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 3. Age-related changes including mild to moderate diffuse volume loss and mild scattered white matter hypoattenuation consistent with chronic small vessel isc hemic disease. 4. Chronic right sphenoid sinusitis.
[2020-12-17 14:45] VITALS: BP 121/61; PULSE 76; RESP 14; TEMP 36.8; O2SAT 98
--- NOTE | 2020-12-17 14:49 | ED.SOB ---
HPI - SOB/Dyspnea General Chief Complaint: Shortness of Breath/Dyspnea Stated Complaint: weakness Time Seen by Provider: 12/17/20 14:49 History of Present Illness HPI Narrative: 80 yo female w/ h/o DM, hypothyroidism, presents to the ED for weakness and lethargy. She has reportedly been slow moving, tired, and a bit confused for the past 1-2 days. Her daughter reports that she saw her a few days ago and she was her usual self at that time. She notes that she seems to be short of breath and she has been repetitive. The patient denies any complaints. He daughter says that she had similar symptoms once in the past which were attributed to dehydration. Related Data Home Medications Medication Instructions Recorded Confirmed aspirin 81 mg tablet,delayed 81 mg PO DAILY 06/17/19 11/07/20 release multivitamin 1 tablet PO DAILY 06/17/19 11/07/20 acetaminophen 500 mg tablet 1,000 mg PO Q6H PRN tablet 10/04/19 11/07/20 omega-3 fatty acids 1,000 mg 1,000 mg PO TID cap 10/04/19 11/07/20 capsule Levemir FlexTouch U-100 Insuln 10 unit SUBCUT BID 10/27/20 11/07/20 citalopram 20 mg PO DAILY 10/27/20 11/07/20 cyanocobalamin (vitamin B-12) 1,000 mcg PO DAILY 10/27/20 11/07/20 [Vitamin B-12] lisinopril 20 mg PO DAILY 10/27/20 11/07/20 Allergies Allergy/AdvReac Type Severity Reaction Status Date / Time diltiazem Allergy Unknown Anxiety Verified 11/07/20 13:11 Review of Systems Review of Systems: All systems reviewed & are unremarkable except as noted in HPI and below Constitutional: Constitutional: Denies chills and Denies fever(s) Cardiovascular: Cardiovascular: Denies chest pain Respiratory: Respiratory: Denies dyspnea Gastrointestinal: Gastrointestinal: Denies abdominal pain, Denies nausea and Denies vomiting Genitourinary: Genitourinary: Denies dysuria [facility] Past Medical History Medical History Anxiety Chronic anemia Depression Hyperlipidemia Hypertension Hypothyroidism Insulin dependent type 2 diabetes mellitus Osteoarthritis Renal cell carcinoma Status post nephrectomy. Mitra (2012) Surgical History Surgical History History of right nephrectomy (~2000) For renal cell carcinoma. Family History Family History Father Family history of heart disease in male family member before age 55 Diabetes mellitus Family history of cardiovascular disease Family history of malignant neoplasm Hypertension Mother Family history of arthritis Sibling Family history of heart disease in male family member before age 55 Social History Social History Social History: Surrogate decision maker: Gifty Englefmann, niece. Code status: Full code. Alcohol intake: never Substance use: never Substance use type: does not use Additional living arrangements comments: The patient lives in [place] with her miniature pincher. 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) Agree to blood products: Yes Exam Const: General: no acute distress and ill appearing Nutritional Appearance: obese Orientation/consciousness: patient oriented x3 Other: Drowsy HENMT: Head: no contusions and no lacerations Mouth: Yes dry mucous membranes Eyes: Pupils: Equal, round and reactive pupils present EOM: EOMs intact bilaterally Resp: Effort & Inspection: normal respiratory effort Auscultation: clear to auscultation bilaterally Cardio: Rate: regular rate Rhythm: regular rhythm GI: GI Palp: Yes Soft to palpation and No Tenderness to palpation present (GI) Skin: General skin exam: normal color Neuro: General: patient oriented x3, moves all extremities and no fo
--- NOTE | 2020-12-17 15:00 | ECG_ITS ---
Measurements Intervals [place] Rate: 76 P: 10 MA: 133 QRS: 55 QRSD: 148 T: 12 QT: 393 QTc: 442 Interpretive Statements SINUS RHYTHM RIGHT BUNDLE BRANCH BLOCK MINIMAL Q WAVES- INFERIOR LEADS BASELINE ARTIFACT- I, AVR, AVL,A VF, V1-V2 ABNORMAL ECG Electronically Signed On 12-17-2020 18:01:50 CDT by Ang Dee D.O.
[2020-12-17 15:30] LABS: Alveolar/Arterial O2 Gradient 33.1 mmHg; Base Excess ABG -0.5 mEq/l (+/-2.0); Fractional Inspired Oxygen 21 %; HCO3 ABG 22.3 mEq/l (22.0-26.0); Oxygen Content ABG 13.8 %vol (16.0-22.0); Oxygen Saturation ABG 96.7 % (95.0-100.0); Oxyhemoglobin 95.4 % THb (90.0-100.0); PCO2 ABG 30.3 mmHg (35.0-45.0); PO2 ABG 80.3 mmHg (80.0-100.0); PO2 FiO2 Ratio Arterial Blood 3.82 %; Total Hemoglobin 10.2 g/dL (12.0-18.0); pH ABG 7.485 (7.350-7.450)
[2020-12-17 15:32] LABS: Device ROOM AIR; Modified Allen's Test Pass; Site Drawn LEFT RADIAL
[2020-12-17 16:00] VITALS: BP 122/76; PULSE 72; RESP 15; O2SAT 99
[2020-12-17] MEDS: SODIUM CHLORIDE 0.9% IV 500 ML 999 ML IV CONT (16:08)
[2020-12-17 17:07] LABS: Add Urine Microscopic? NO; Appearance Urine Clear (Clear); Bilirubin Urine Negative (Negative); Blood Urine Negative (Negative); Color Urine Yellow (Yellow); Glucose Urine UA Negative (Negative); Ketones Urine Negative (Negative); Leukocyte Esterase Ur Negative LEU/UL (Negative); Nitrate Urine Negative (Negative); Protein Urine Negative (Negative); Specific Grav Ur 1.006 (1.001-1.035); Urobilinogen Urine Negative mg/dL (<2.0)
[2020-12-17 17:19] LABS: Basophils Percent Auto 0.2 % (0.2-1.2); Eosinophils Percent Auto 0.2 % (0-4.4); Hematocrit 27.1 % (37.0-47.0); Hemoglobin 9.2 g/dL (12.0-15.0); Immature Granulocyte Absolute 0.25 K/mm3 (0.00-0.031); Immature Granulocyte Percent A 1.9 % (0-0.5); Lymphocytes Absolute Auto 0.74 K/mm3 (0.9-3.2); Lymphocytes Percent Auto 5.6 % (18.3-44.2); Mean Corpuscular HGB Conc 33.9 g/dl (32-36); Mean Corpuscular Hemoglobin 30.6 pg (26-34); Mean Platelet Volume 9.6 fl (7.4-10.4); Monocytes Absolute Auto 1.2 K/mm3 (0.1-0.6); Monocytes Percent Auto 9.2 % (2.6-8.5); Neutrophils Percent Auto 82.9 % (45.5-73.1); Platelet Count Result 361 k/mm3 (150-375); Red Blood Count 3.01 M/mm3 (4.2-5.4); White Blood Count 13.3 K/mm3 (4.5-10.0)
[2020-12-17 17:30] LABS: Alanine Aminotransferase 12 U/L (4-35); Albumin Level 3.4 g/dL (3.5-5.1); Alkaline Phosphatase 61 U/L (38-126); Anion Gap 9 mmol/L (8-16); Aspartate Amino Transferase 30 U/L (14-36); Bilirubin,Total 0.9 mg/dL (0.2-1.3); Blood Urea Nitrogen 51 mg/dL (7-17); Calcium 8.7 mg/dL (8.4-10.2); Carbon Dioxide 19 mmol/L (22-30); Chloride 93 mmol/L (98-107); Estimated CRCL calculation 36 ml/min; Estimated Glomerular Filt Rate 36; Glucose 107 mg/dL (65-110); Potassium 5.2 mmol/L (3.4-5.0); Sodium 121 mmol/L (137-145)
[2020-12-17 17:34] LABS: Partial Thromboplastin Time 35.2 SECONDS (22.3-36.8)
[2020-12-17 17:39] LABS: NT Pro B Type Natriuretic Pept 479 pg/mL (5-100)
[2020-12-17 18:10] LABS: INR 1.2; Prothrombin Time 14.7 Seconds (11.1-14.7)
[2020-12-17 18:29] VITALS: BP 120/70; PULSE 78; RESP 18; O2SAT 100
--- NOTE | 2020-12-17 19:27 | PC.NURSE ---
Called placed by this RN to [place] Elder abuse hotline. Charge nurse made aware
[2020-12-17] MEDS: SODIUM CHLORIDE 0.9% IV 1,000 ML 50 ML IV CONT (19:52)
[2020-12-17 19:55] VITALS: BMI 37.3
[2020-12-17 20:06] LABS: Glucose Point of Care 121 mg/dl (65-105)
[2020-12-17 20:09] VITALS: BP 100/60; PULSE 81; RESP 16; TEMP 36.6; O2SAT 99
--- NOTE | 2020-12-17 20:32 | PM.IMHP ---
H&P: HPI History of Present Illness Date/Time: 12/17/20 20:32 Chief Complaint: I do not know why I am here Narrative: This is a 80-year-old female with past medical history significant for type 2 diabetes mellitus insulin dependent, hypothyroidism hypertension morbid obesity, chronic kidney disease. PATIENT WAS AT [facility] BACK IN SEPTEMBER WHERE SHE WAS TREATED FOR DEHYDRATION AND SENT HOME. TODAY SHE WAS BROUGHT IN AFTER DAUGHTER HAD CONCERNS WITH HER NOT BEEN HER USUAL ACTING CONFUSED AND DECIDED TO BRING HER TO THE EMERGENCY ROOM FOR EVALUATION PATIENT STATES SHE DOES NOT KNOW WHY SHE IS HERE. AT THE TIME OF MY VISIT PATIENT DENIED ANY DISCOMFORT.PRELIMINARY WORKUP WAS SIGNIFICANT FOR SODIUM OF 121, WBC 13.3 CREATININE OF 1.[address] OF THE HEAD SHOWED NO ACUTE ABNORMALITIES A CHEST X-RAY DID NOT SHOW ANY ACUTE CARDIOPULMONARY DISEASE. Review of Systems Review of Systems: ROS unobtainable: Yes unobtainable due to medical condition PMFSH Past Medical History Medical History Anxiety Chronic anemia Depression Hyperlipidemia Hypertension Hypothyroidism Insulin dependent type 2 diabetes mellitus Osteoarthritis Renal cell carcinoma Status post nephrectomy. Mitra (2011) Surgical History Surgical History History of right nephrectomy (~1999) For renal cell carcinoma. Family History Family History Father Family history of heart disease in male family member before age 55 Diabetes mellitus Family history of cardiovascular disease Family history of malignant neoplasm Hypertension Mother Family history of arthritis Sibling Family history of heart disease in male family member before age 55 Social History Social History Social History: Surrogate decision maker: Gifty Salmeron, niece. Code status: Full code. Smoking status: Never smoker Alcohol intake: never Substance use: never Substance use type: does not use Additional living arrangements comments: The patient lives in [place] with her hali campos. 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 Gender identity (if verbalized by the patient): Female Spiritual care concerns: No Agree to blood products: Yes Meds Home Medications and Allergies Home Medications Medication Instructions Recorded Confirmed Type aspirin 81 mg tablet,delayed 81 mg PO DAILY 06/17/19 12/17/20 History release multivitamin 1 tablet PO DAILY 06/17/19 12/17/20 History blood sugar diagnostic #400 each 07/26/19 12/17/20 Rx blood-glucose meter #1 each 07/26/19 12/17/20 Rx lancets 33 gauge #400 each 07/26/19 12/17/20 Rx insulin syringe-needle U-100 1 mL #200 each 08/20/19 12/17/20 Rx 25 x 1 acetaminophen 500 mg tablet 1,000 mg PO Q6H PRN tablet 10/04/19 12/17/20 History omega-3 fatty acids 1,000 mg 1,000 mg PO TID cap 10/04/19 12/17/20 History capsule pen needle, diabetic 31 gauge x See Rx Instructions .ROUTE 07/05/20 12/17/20 Rx 16 .COMPLEX #200 ea levothyroxine 112 mcg tablet 112 mcg PO DAILY #90 tablet 09/28/20 12/17/20 Rx atorvastatin 40 mg tablet 40 mg PO DAILY #90 tablet 10/26/20 12/17/20 Rx Levemir FlexTouch U-100 Insuln 10 unit SUBCUT BID 10/27/20 12/17/20 History citalopram 20 mg PO DAILY 10/27/20 12/17/20 History cyanocobalamin (vitamin B-12) 1,000 mcg PO DAILY 10/27/20 12/17/20 History [Vitamin B-12] lisinopril 20 mg PO DAILY 10/27/20 12/17/20 History hydralazine 50 mg tablet 50 mg PO QID #360 tablet 12/07/20 12/17/20 Rx ferrous sulfate 325 mg (65 mg See Rx Instructions .ROUTE 12/13/20 12/17/20 Rx iron) tablet .COMPLEX #60 tablet bumetanide 2 mg PO BID 12/17/20 12/17/20 History Allergies Allergy/AdvReac Type Severity Reaction Status Date / Time diltiazem Allergy Unknown Anx
[2020-12-17 20:37] VITALS: PULSE 91
[2020-12-17] MEDS: CLINDAMYCIN 900 MG/D5W 50 ML 900 MG/50 ML PIGGYBACK 50 MG IVPB (21:24)
[2020-12-18] VITALS (10 sets, daily range): BP systolic 104–129; BP diastolic 50–89; PULSE 74–92; RESP 16–18; TEMP 36.2–36.6; O2SAT 96–99
[2020-12-18 00:41] LABS: Anion Gap 6 mmol/L (8-16); Blood Urea Nitrogen 49 mg/dL (7-17); Calcium 8.3 mg/dL (8.4-10.2); Carbon Dioxide 23 mmol/L (22-30); Chloride 95 mmol/L (98-107); Estimated CRCL calculation 34 ml/min; Estimated Glomerular Filt Rate 33; Glucose 117 mg/dL (65-110); Potassium 5.2 mmol/L (3.4-5.0); Sodium 124 mmol/L (137-145)
[2020-12-18] MEDS: CLINDAMYCIN 900 MG/D5W 50 ML 900 MG/50 ML PIGGYBACK 50 MG IVPB ×3 (05:42→22:17)
[2020-12-18] MEDS: LEVOTHYROXINE SODIUM 112 MCG TABLET PO (05:42)
[2020-12-18] MEDS: HEPARIN SODIUM 5,000 UNITS/ML VIAL 5000 UNITS SUB-Q ×2 (08:41→20:33)
[2020-12-18] MEDS: ATORVASTATIN 40 MG TABLET PO (08:41)
[2020-12-18] MEDS: CITALOPRAM HYDROBROMIDE 20 MG TABLET PO (08:41)
[2020-12-18] MEDS: ASPIRIN 81 MG ENTERIC TABLET PO (08:41)
[2020-12-18] MEDS: hydrALAZINE HCL 50 MG TABLET PO ×4 (08:41→20:33)
[2020-12-18] MEDS: FERROUS SULFATE 324 MG TABLET BY MOUTH ×2 (08:41→16:43)
[2020-12-18] MEDS: INSULIN ASPART (*BKC) 100 UNITS/ML SUB-Q ×3 (08:44→16:43)
[2020-12-18] MEDS: INSULIN DETEMIR 100 UNITS/ML 10 UNITS SUB-Q ×2 (08:44→16:46)
[2020-12-18 09:13] LABS: Glucose Point of Care 199 mg/dl (65-105)
[2020-12-18] MEDS: TOLNAFTATE 1% POWDER 45 GM BTL 1 APPLIC TOPICAL ×2 (11:08→20:34)
[2020-12-18 13:10] LABS: Glucose Point of Care 94 mg/dl (65-105)
[2020-12-18] MEDS: SODIUM CHLORIDE 0.9% IV 1,000 ML 75 ML IV CONT (14:34)
[2020-12-18 16:45] LABS: Glucose Point of Care 92 mg/dl (65-105)
--- NOTE | 2020-12-18 17:05 | PM.IMPN ---
Progress Note: A&P Assessment and Plan (1) Acute hyponatremia: Code(s): E87.1 - Hypo-osmolality and hyponatremia Status: Acute Assessment and Plan: Improving Continue to HOLD DIURETICS GENTLE HYDRATION CONTINUE TO MONITOR (2) Generalized weakness: Code(s): R53.1 - Weakness Status: Acute Assessment and Plan: PATIENT IS VERY DECONDITIONED PT/OT Supportive care (3) CKD (chronic kidney disease): Qualifiers: Chronic kidney disease stage: stage 3 (moderate) Chronic kidney disease stage 3 subtype: unspecified whether 3a or 3b Qualified Code(s): N18.30 - Chronic kidney disease, stage 3 unspecified Code(s): N18.9 - Chronic kidney disease, unspecified Status: Acute Assessment and Plan: BUN AND CREATININE AT PATIENT'S BASELINE CONTINUE TO MONITOR (4) Hyperkalemia: Code(s): E87.5 - Hyperkalemia Status: Acute Assessment and Plan: WILL HOLD LISINOPRIL Will give Kayexalate CONTINUE TO MONITOR (5) Insulin dependent type 2 diabetes mellitus: Code(s): E11.9 - Type 2 diabetes mellitus without complications; Z79.4 - [facility] (current) use of insulin Status: Acute Assessment and Plan: ACCU-CHEKS AC AND HS INSULIN SLIDING SCALE NEEDED CONTINUE TO MONITOR (6) Abdominal wall cellulitis: Code(s): L03.311 - Cellulitis of abdominal wall Status: Acute Assessment and Plan: STARTED ON CLINDA Follow WOUND CARE nurse following (7) Morbid obesity: Code(s): E66.01 - Morbid (severe) obesity due to excess calories Status: Acute Assessment and Plan: 1800 CALORIE RESTRICTED DIET (8) Essential (primary) hypertension: Code(s): I10 - Essential (primary) hypertension Status: Acute Assessment and Plan: CONTINUE HYDRALAZINE CONTINUE TO MONITOR Subjective Date/time seen: 12/18/20 17:05 Pt seen and evaluated; no acute events overnight; denies any new complaints Review of Systems Review of Systems: All systems reviewed & are unremarkable except as noted in HPI and below Exam Const: General: no acute distress, alert and awake Orientation/consciousness: patient oriented x3 HENMT: Head: normocephalic and atraumatic Ears: hearing grossly normal bilaterally and external ears normal Face and sinus: face symmetric Mouth: Yes Normal oral and palatal mucosa present Eyes: Pupils: Equal, round and reactive pupils present EOM: EOMs intact bilaterally Neck: Neck: full ROM, trachea midline and no JVD Thyroid: thyroid normal Chest: Chest palpation & inspection: normal inspection of the chest Resp: Effort & Inspection: normal respiratory effort Auscultation: clear to auscultation bilaterally Cardio: Jugular venous distension: no JVD Rate: regular rate Rhythm: regular rhythm Heart sounds: S1 normal heart sound present and S2 normal heart sound present GI: Inspection: normal to inspection GI Palp: Yes Soft to palpation Percussion: Yes normal to percussion Auscultation: normal bowel sounds : General: Yes no CVA tenderness Back/Spine/Pelvis: Back: no CVA tenderness Skin: General skin exam: normal color Rashes: rashes noted Other: yeast noted to skin folds under breast; pannus and groin Neuro: General: patient oriented x3 and CN's II-XI intact bilaterally Cranial nerves: Yes Equal, round and reactive pupils present Speech: normal speech Psych: Appearance: grossly normal Affect: normal affect Judgement: Good judgement present (Psych) Objective Data Vital Signs Vital Signs: Vital Signs - 24 hr 12/17/20 18:29 12/17/20 20:09 12/17/20 20:37 Temperature 36.6 C Pulse Rate 78 81 91 Respiratory Rate 18 16 Blood Pressure 120/70 100/60 Pulse Oximetry 100 99 12/18/20 00:00 12/18/20 04:00 12/18/20 05:01 Temperature 36.6 C Pulse Rate 74 79 85 Respiratory Rate 18 Blood Pressure 129/89 Pulse Oximetry 96 12/18/20 08:00
[2020-12-18] MEDS: SODIUM POLYSTYRENE SULFONONATE 15 GM/60 ML BTL PO (18:15)
[2020-12-18 20:15] LABS: Glucose Point of Care 106 mg/dl (65-105)
[2020-12-19] VITALS (9 sets, daily range): BP systolic 130–143; BP diastolic 44–58; PULSE 65–101; RESP 17–20; TEMP 35.6–36.2; O2SAT 98–100
[2020-12-19] MEDS: SODIUM CHLORIDE 0.9% IV 1,000 ML 75 ML IV CONT (04:52)
[2020-12-19] MEDS: CLINDAMYCIN 900 MG/D5W 50 ML 900 MG/50 ML PIGGYBACK 50 MG IVPB ×3 (05:49→21:45)
[2020-12-19] MEDS: LEVOTHYROXINE SODIUM 112 MCG TABLET PO (05:49)
[2020-12-19 08:08] LABS: Glucose Point of Care 71 mg/dl (65-105)
[2020-12-19] MEDS: CITALOPRAM HYDROBROMIDE 20 MG TABLET PO (08:33)
[2020-12-19] MEDS: hydrALAZINE HCL 50 MG TABLET PO ×4 (08:33→20:45)
[2020-12-19] MEDS: ATORVASTATIN 40 MG TABLET PO (08:33)
[2020-12-19] MEDS: INSULIN DETEMIR 100 UNITS/ML 10 UNITS SUB-Q ×2 (08:34→18:03)
[2020-12-19] MEDS: ASPIRIN 81 MG ENTERIC TABLET PO (08:34)
[2020-12-19] MEDS: FERROUS SULFATE 324 MG TABLET BY MOUTH ×2 (08:34→17:42)
[2020-12-19] MEDS: HEPARIN SODIUM 5,000 UNITS/ML VIAL 5000 UNITS SUB-Q ×2 (08:34→20:44)
[2020-12-19 10:01] LABS: Hematocrit 27.8 % (37.0-47.0); Hemoglobin 9.2 g/dL (12.0-15.0); Mean Corpuscular HGB Conc 33.1 g/dl (32-36); Mean Corpuscular Hemoglobin 30.7 pg (26-34); Mean Corpuscular Volume 92.7 fl (80-100); Mean Platelet Volume 9.4 fl (7.4-10.4); Platelet Count Result 407 k/mm3 (150-375); Red Cell Distribution Width 13.3 % (11.5-14.5); White Blood Count 8.5 K/mm3 (4.5-10.0)
--- NOTE | 2020-12-19 10:08 | PM.IMPN ---
Progress Note: A&P Assessment and Plan (1) Acute hyponatremia: Code(s): E87.1 - Hypo-osmolality and hyponatremia Status: Acute Assessment and Plan: Improving Continue to HOLD DIURETICS GENTLE HYDRATION CONTINUE TO MONITOR (2) Generalized weakness: Code(s): R53.1 - Weakness Status: Acute Assessment and Plan: PATIENT IS VERY DECONDITIONED PT/OT Supportive care Would benefit from SNF at d/c Pt is requesting [facility], will follow recovery (3) CKD (chronic kidney disease): Qualifiers: Chronic kidney disease stage: stage 3 (moderate) Chronic kidney disease stage 3 subtype: unspecified whether 3a or 3b Qualified Code(s): N18.30 - Chronic kidney disease, stage 3 unspecified Code(s): N18.9 - Chronic kidney disease, unspecified Status: Acute Assessment and Plan: BUN AND CREATININE AT PATIENT'S BASELINE CONTINUE TO MONITOR (4) Hyperkalemia: Code(s): E87.5 - Hyperkalemia Status: Acute Assessment and Plan: WILL HOLD LISINOPRIL Will give Kayexalate CONTINUE TO MONITOR (5) Insulin dependent type 2 diabetes mellitus: Code(s): E11.9 - Type 2 diabetes mellitus without complications; Z79.4 - snf (current) use of insulin Status: Acute Assessment and Plan: ACCU-CHEKS AC AND HS INSULIN SLIDING SCALE NEEDED CONTINUE TO MONITOR (6) Abdominal wall cellulitis: Code(s): L03.311 - Cellulitis of abdominal wall Status: Acute Assessment and Plan: STARTED ON CLINDA Follow WOUND CARE nurse following (7) Morbid obesity: Code(s): E66.01 - Morbid (severe) obesity due to excess calories Status: Acute Assessment and Plan: 1800 CALORIE RESTRICTED DIET (8) Essential (primary) hypertension: Code(s): I10 - Essential (primary) hypertension Status: Acute Assessment and Plan: CONTINUE HYDRALAZINE CONTINUE TO MONITOR Subjective Date/time seen: 12/19/20 10:08 Pt seen and evaluated; no acute events overnight; pt is tolerating diet; no new complaints Review of Systems Review of Systems: All systems reviewed & are unremarkable except as noted in HPI and below ROS unobtainable: Yes unobtainable due to medical condition Exam Const: General: no acute distress, alert and awake Orientation/consciousness: patient oriented x3 HENMT: Head: normocephalic and atraumatic Ears: hearing grossly normal bilaterally and external ears normal Face and sinus: face symmetric Mouth: Yes Normal oral and palatal mucosa present Eyes: Pupils: Equal, round and reactive pupils present EOM: EOMs intact bilaterally Neck: Neck: full ROM, trachea midline and no JVD Thyroid: thyroid normal Chest: Chest palpation & inspection: normal inspection of the chest Resp: Effort & Inspection: normal respiratory effort Auscultation: clear to auscultation bilaterally Cardio: Jugular venous distension: no JVD Rate: regular rate Rhythm: regular rhythm Heart sounds: S1 normal heart sound present and S2 normal heart sound present GI: Inspection: normal to inspection Auscultation: normal bowel sounds : General: Yes no CVA tenderness Back/Spine/Pelvis: Back: no CVA tenderness Skin: General skin exam: normal color Rashes: rashes noted Other: yeast noted to skin folds under breast; pannus and groin Neuro: General: patient oriented x3 and CN's II-XI intact bilaterally Cranial nerves: Yes Equal, round and reactive pupils present Speech: normal speech Psych: Appearance: grossly normal Affect: normal affect Judgement: Good judgement present (Psych) Objective Data Vital Signs Vital Signs: Vital Signs - 24 hr 12/18/20 12:00 12/18/20 14:00 12/18/20 14:54 Temperature 36.2 C L Pulse Rate 78 78 Respiratory Rate 16 Blood Pressure 114/52 L Pulse Oximetry 99 97 12/18/20 16:00 12/18/20 20:00 12/18/20 20:03 Temperature 36.4 C Pulse Rate 75 78 81 Respiratory Rate
[2020-12-19 10:13] LABS: Anion Gap 9 mmol/L (8-16); Blood Urea Nitrogen 41 mg/dL (7-17); Carbon Dioxide 23 mmol/L (22-30); Chloride 97 mmol/L (98-107); Estimated CRCL calculation 42 ml/min; Estimated Glomerular Filt Rate 43; Glucose 100 mg/dL (65-110); Potassium 3.9 mmol/L (3.4-5.0); Sodium 129 mmol/L (137-145)
[2020-12-19 12:34] LABS: Glucose Point of Care 90 mg/dl (65-105)
[2020-12-19] MEDS: TOLNAFTATE 1% POWDER 45 GM BTL 1 APPLIC TOPICAL ×2 (12:45→20:45)
[2020-12-19] MEDS: INSULIN ASPART (*BKC) 100 UNITS/ML SUB-Q ×2 (12:51→18:04)
[2020-12-19 16:50] LABS: Glucose Point of Care 128 mg/dl (65-105)
[2020-12-19 20:39] LABS: Glucose Point of Care 62 mg/dl (65-105)
[2020-12-19 21:10] LABS: Glucose Point of Care 96 mg/dl (65-105)
--- NOTE | 2020-12-19 21:16 | PC.NURSE ---
BLOOD SUGAR 62, JUICE GIVEN RECHECKED 96
[2020-12-19] MEDS: LORazepam (*CRX) 0.5 MG TABLET PO (22:13)
[2020-12-20] VITALS (9 sets, daily range): BP systolic 115–149; BP diastolic 34–90; PULSE 69–110; RESP 16–18; TEMP 35.7–36.2; O2SAT 98–100
[2020-12-20] MEDS: CLINDAMYCIN 900 MG/D5W 50 ML 900 MG/50 ML PIGGYBACK 50 MG IVPB ×3 (05:32→21:11)
[2020-12-20] MEDS: LEVOTHYROXINE SODIUM 112 MCG TABLET PO (06:41)
[2020-12-20 07:55] LABS: Glucose Point of Care 72 mg/dl (65-105)
[2020-12-20] MEDS: CITALOPRAM HYDROBROMIDE 20 MG TABLET PO (07:56)
[2020-12-20] MEDS: FERROUS SULFATE 324 MG TABLET BY MOUTH ×2 (07:56→16:39)
[2020-12-20] MEDS: ATORVASTATIN 40 MG TABLET PO (07:56)
[2020-12-20] MEDS: ASPIRIN 81 MG ENTERIC TABLET PO (07:56)
[2020-12-20] MEDS: hydrALAZINE HCL 50 MG TABLET PO ×4 (07:56→21:10)
[2020-12-20] MEDS: TOLNAFTATE 1% POWDER 45 GM BTL 1 APPLIC TOPICAL ×2 (07:57→21:10)
[2020-12-20] MEDS: INSULIN DETEMIR 100 UNITS/ML 10 UNITS SUB-Q ×2 (08:02→16:43)
[2020-12-20] MEDS: INSULIN ASPART (*BKC) 100 UNITS/ML SUB-Q ×3 (08:02→16:44)
[2020-12-20] MEDS: HEPARIN SODIUM 5,000 UNITS/ML VIAL 5000 UNITS SUB-Q ×2 (08:05→21:11)
[2020-12-20 08:46] LABS: Basophils Absolute Auto 0.1 K/mm3 (0.0-0.1); Basophils Percent Auto 0.6 % (0.2-1.2); Eosinophils Absolute Auto 0.3 K/mm3 (0-0.3); Eosinophils Percent Auto 3.2 % (0-4.4); Hematocrit 27.3 % (37.0-47.0); Hemoglobin 8.9 g/dL (12.0-15.0); Immature Granulocyte Absolute 0.63 K/mm3 (0.00-0.031); Immature Granulocyte Percent A 7.4 % (0-0.5); Lymphocytes Absolute Auto 0.78 K/mm3 (0.9-3.2); Lymphocytes Percent Auto 9.2 % (18.3-44.2); Mean Corpuscular HGB Conc 32.6 g/dl (32-36); Mean Corpuscular Hemoglobin 30.6 pg (26-34); Mean Corpuscular Volume 93.8 fl (80-100); Mean Platelet Volume 9.7 fl (7.4-10.4); Monocytes Absolute Auto 0.8 K/mm3 (0.1-0.6); Monocytes Percent Auto 9.6 % (2.6-8.5); Platelet Count Result 372 k/mm3 (150-375); Red Blood Count 2.91 M/mm3 (4.2-5.4); Red Cell Distribution Width 13.4 % (11.5-14.5); White Blood Count 8.5 K/mm3 (4.5-10.0)
--- NOTE | 2020-12-20 09:21 | PM.IMPN ---
Progress Note: A&P Assessment and Plan (1) Acute hyponatremia: Code(s): E87.1 - Hypo-osmolality and hyponatremia Status: Acute Assessment and Plan: Improving Continue to HOLD DIURETICS S/p IVF Recheck bmp in a.m. (2) Generalized weakness: Code(s): R53.1 - Weakness Status: Acute Assessment and Plan: PATIENT IS VERY DECONDITIONED PT/OT Supportive care Would benefit from SNF at d/c Pt is requesting [facility], will follow recovery (3) CKD (chronic kidney disease): Qualifiers: Chronic kidney disease stage: stage 3 (moderate) Chronic kidney disease stage 3 subtype: unspecified whether 3a or 3b Qualified Code(s): N18.30 - Chronic kidney disease, stage 3 unspecified Code(s): N18.9 - Chronic kidney disease, unspecified Status: Acute Assessment and Plan: BUN AND CREATININE AT PATIENT'S BASELINE CONTINUE TO MONITOR (4) Hyperkalemia: Code(s): E87.5 - Hyperkalemia Status: Acute Assessment and Plan: Resolved Will resume LISINOPRIL S/p Kayexalate CONTINUE TO MONITOR (5) Insulin dependent type 2 diabetes mellitus: Code(s): E11.9 - Type 2 diabetes mellitus without complications; Z79.4 - equipment operator intermodal yard (current) use of insulin Status: Acute Assessment and Plan: ACCU-CHEKS AC AND HS INSULIN SLIDING SCALE NEEDED CONTINUE TO MONITOR (6) Abdominal wall cellulitis: Code(s): L03.311 - Cellulitis of abdominal wall Status: Acute Assessment and Plan: Continue CLINDA Follow WOUND CARE nurse following (7) Morbid obesity: Code(s): E66.01 - Morbid (severe) obesity due to excess calories Status: Acute Assessment and Plan: 1800 CALORIE RESTRICTED DIET (8) Essential (primary) hypertension: Code(s): I10 - Essential (primary) hypertension Status: Acute Assessment and Plan: CONTINUE HYDRALAZINE CONTINUE TO MONITOR Subjective Date/time seen: 12/20/20 09:21 Pt seen and evaluated; overall she is improving; she was anxious last evening requiring some xanax for sleep; no other complaints Review of Systems Review of Systems: All systems reviewed & are unremarkable except as noted in HPI and below ROS unobtainable: Yes unobtainable due to medical condition Exam Const: General: no acute distress, alert and awake Orientation/consciousness: patient oriented x3 HENMT: Head: normocephalic and atraumatic Ears: hearing grossly normal bilaterally and external ears normal Face and sinus: face symmetric Mouth: Yes Normal oral and palatal mucosa present Eyes: Pupils: Equal, round and reactive pupils present EOM: EOMs intact bilaterally Neck: Neck: full ROM, trachea midline and no JVD Thyroid: thyroid normal Chest: Chest palpation & inspection: normal inspection of the chest Resp: Effort & Inspection: normal respiratory effort Auscultation: clear to auscultation bilaterally Cardio: Jugular venous distension: no JVD Rate: regular rate Rhythm: regular rhythm Heart sounds: S1 normal heart sound present and S2 normal heart sound present GI: Inspection: normal to inspection Auscultation: normal bowel sounds : General: Yes no CVA tenderness Back/Spine/Pelvis: Back: no CVA tenderness Skin: General skin exam: normal color Rashes: rashes noted Other: yeast noted to skin folds under breast; pannus and groin Neuro: General: patient oriented x3 and CN's II-XI intact bilaterally Cranial nerves: Yes Equal, round and reactive pupils present Speech: normal speech Psych: Appearance: grossly normal Affect: normal affect Judgement: Good judgement present (Psych) Objective Data Vital Signs Vital Signs: Vital Signs - 24 hr 12/19/20 12:00 12/19/20 15:03 12/19/20 16:00 Temperature 35.6 C L Pulse Rate 67 101 H 83 Respiratory Rate 18 Blood Pressure 143/45 H Pulse Oximetry 100 12/19/20 19:35 12/19/20 20:00 12/20/20 00:00 Temperature 36.2 C L Pulse R
[2020-12-20 09:25] LABS: Anion Gap 6 mmol/L (8-16); Blood Urea Nitrogen 34 mg/dL (7-17); Calcium 8.2 mg/dL (8.4-10.2); Carbon Dioxide 22 mmol/L (22-30); Chloride 102 mmol/L (98-107); Estimated CRCL calculation 49 ml/min; Estimated Glomerular Filt Rate 53; Glucose 53 mg/dL (65-110); Potassium 4.2 mmol/L (3.4-5.0); Sodium 130 mmol/L (137-145)
--- NOTE | 2020-12-20 11:37 | PC.NURSE ---
Patient picked a large scab off the lower part of her abdomen. When asked why she did this she stated it was itching her. Area is about the size of a half dollar and a mepilex dressing was applied.
[2020-12-20 11:59] LABS: Glucose Point of Care 116 mg/dl (65-105)
[2020-12-20] MEDS: OMEGA 3 POLYUNSAT FATTY ACIDS 1 GM CAP PO (16:39)
[2020-12-20 16:43] LABS: Glucose Point of Care 116 mg/dl (65-105)
[2020-12-20] MEDS: LORazepam (*CRX) 0.5 MG TABLET 0.25 MG PO (21:10)
[2020-12-20 21:44] LABS: Glucose Point of Care 101 mg/dl (65-105)
[2020-12-21] VITALS (9 sets, daily range): BP systolic 114–169; BP diastolic 35–69; PULSE 58–111; RESP 18–20; TEMP 35.7–35.9; O2SAT 99–100
[2020-12-21] MEDS: LEVOTHYROXINE SODIUM 112 MCG TABLET PO (06:00)
[2020-12-21] MEDS: CLINDAMYCIN 900 MG/D5W 50 ML 900 MG/50 ML PIGGYBACK 50 MG IVPB ×3 (06:01→21:07)
[2020-12-21] MEDS: MULTIVITAMINS THERAPEUTIC TAB (*BKC) 1 TABLET PO (08:08)
[2020-12-21] MEDS: HEPARIN SODIUM 5,000 UNITS/ML VIAL 5000 UNITS SUB-Q ×2 (08:08→20:03)
[2020-12-21] MEDS: ASPIRIN 81 MG ENTERIC TABLET PO (08:08)
[2020-12-21] MEDS: OMEGA 3 POLYUNSAT FATTY ACIDS 1 GM CAP PO ×3 (08:08→16:12)
[2020-12-21] MEDS: CITALOPRAM HYDROBROMIDE 20 MG TABLET PO (08:08)
[2020-12-21] MEDS: FERROUS SULFATE 324 MG TABLET BY MOUTH ×2 (08:08→16:12)
[2020-12-21] MEDS: lisinopriL 20 MG TABLET PO (08:08)
[2020-12-21] MEDS: ATORVASTATIN 40 MG TABLET PO (08:08)
[2020-12-21] MEDS: hydrALAZINE HCL 50 MG TABLET PO ×4 (08:08→20:03)
[2020-12-21] MEDS: INSULIN DETEMIR 100 UNITS/ML 10 UNITS SUB-Q ×2 (08:11→16:16)
[2020-12-21] MEDS: INSULIN ASPART (*BKC) 100 UNITS/ML SUB-Q ×3 (08:14→16:13)
[2020-12-21 08:16] LABS: Glucose Point of Care 98 mg/dl (65-105)
[2020-12-21 08:46] LABS: Hematocrit 31.6 % (37.0-47.0); Hemoglobin 10.3 g/dL (12.0-15.0); Mean Corpuscular HGB Conc 32.6 g/dl (32-36); Mean Corpuscular Hemoglobin 30.5 pg (26-34); Mean Corpuscular Volume 93.5 fl (80-100); Mean Platelet Volume 9.5 fl (7.4-10.4); Platelet Count Result 401 k/mm3 (150-375); Red Blood Count 3.38 M/mm3 (4.2-5.4); Red Cell Distribution Width 13.5 % (11.5-14.5); White Blood Count 8.8 K/mm3 (4.5-10.0)
[2020-12-21 09:00] LABS: Anion Gap 8 mmol/L (8-16); Blood Urea Nitrogen 30 mg/dL (7-17); Calcium 8.6 mg/dL (8.4-10.2); Carbon Dioxide 21 mmol/L (22-30); Chloride 101 mmol/L (98-107); Estimated CRCL calculation 54 ml/min; Estimated Glomerular Filt Rate 60; Glucose 96 mg/dL (65-110); Potassium 4.2 mmol/L (3.4-5.0); Sodium 130 mmol/L (137-145)
--- NOTE | 2020-12-21 11:00 | PM.IMPN ---
Progress Note: A&P Assessment and Plan (1) Acute hyponatremia: Code(s): E87.1 - Hypo-osmolality and hyponatremia Status: Acute Assessment and Plan: Improving Continue to HOLD DIURETICS S/p IVF Recheck bmp in a.m. (2) Generalized weakness: Code(s): R53.1 - Weakness Status: Acute Assessment and Plan: PATIENT IS VERY DECONDITIONED PT/OT Supportive care Would benefit from SNF at d/c Pt is requesting [facility], will follow recovery (3) CKD (chronic kidney disease): Qualifiers: Chronic kidney disease stage: stage 3 (moderate) Chronic kidney disease stage 3 subtype: unspecified whether 3a or 3b Qualified Code(s): N18.30 - Chronic kidney disease, stage 3 unspecified Code(s): N18.9 - Chronic kidney disease, unspecified Status: Acute Assessment and Plan: BUN AND CREATININE AT PATIENT'S BASELINE CONTINUE TO MONITOR (4) Hyperkalemia: Code(s): E87.5 - Hyperkalemia Status: Acute Assessment and Plan: Resolved Will resume LISINOPRIL S/p Kayexalate CONTINUE TO MONITOR (5) Insulin dependent type 2 diabetes mellitus: Code(s): E11.9 - Type 2 diabetes mellitus without complications; Z79.4 - termite helper (current) use of insulin Status: Acute Assessment and Plan: ACCU-CHEKS AC AND HS INSULIN SLIDING SCALE NEEDED CONTINUE TO MONITOR (6) Abdominal wall cellulitis: Code(s): L03.311 - Cellulitis of abdominal wall Status: Acute Assessment and Plan: Continue CLINDA Follow WOUND CARE nurse following (7) Morbid obesity: Code(s): E66.01 - Morbid (severe) obesity due to excess calories Status: Acute Assessment and Plan: 1800 CALORIE RESTRICTED DIET (8) Essential (primary) hypertension: Code(s): I10 - Essential (primary) hypertension Status: Acute Assessment and Plan: CONTINUE HYDRALAZINE CONTINUE TO MONITOR Subjective Date/time seen: 12/21/20 11:00 Interval history: pt up to chair having breakfast; denies any new complaints; no acute events overnight Review of Systems Review of Systems: All systems reviewed & are unremarkable except as noted in HPI and below Exam Const: General: no acute distress, alert and awake Orientation/consciousness: patient oriented x3 HENMT: Head: normocephalic and atraumatic Ears: hearing grossly normal bilaterally and external ears normal Face and sinus: face symmetric Mouth: Yes Normal oral and palatal mucosa present Eyes: EOM: EOMs intact bilaterally Neck: Neck: full ROM, trachea midline and no JVD Chest: Chest palpation & inspection: normal inspection of the chest Resp: Effort & Inspection: normal respiratory effort Auscultation: clear to auscultation bilaterally Cardio: Jugular venous distension: no JVD Rate: regular rate Rhythm: regular rhythm Heart sounds: S1 normal heart sound present and S2 normal heart sound present GI: Inspection: normal to inspection Auscultation: normal bowel sounds : General: Yes no CVA tenderness Back/Spine/Pelvis: Back: no CVA tenderness Skin: General skin exam: normal color Rashes: rashes noted Other: yeast noted to skin folds under breast; pannus and groin Neuro: General: patient oriented x3 and CN's II-XI intact bilaterally Cranial nerves: Yes Equal, round and reactive pupils present Speech: normal speech Psych: Appearance: grossly normal Affect: normal affect Judgement: Good judgement present (Psych) Objective Data Vital Signs Vital Signs: Vital Signs - 24 hr 12/20/20 14:03 12/20/20 16:00 12/20/20 19:25 Temperature 36.1 C L 35.7 C L Pulse Rate 77 73 75 Respiratory Rate 16 18 Blood Pressure 135/39 L 149/34 H Pulse Oximetry 100 100 12/20/20 20:00 12/21/20 00:00 12/21/20 04:00 Temperature Pulse Rate 77 58 L 78 Respiratory Rate Blood Pressure Pulse Oximetry 12/21/20 04:15 Temperature 35.7 C L Pulse Rate 87 Respiratory Rate 1
[2020-12-21] MEDS: TOLNAFTATE 1% POWDER 45 GM BTL 1 APPLIC TOPICAL ×2 (11:17→20:04)
[2020-12-21 12:49] LABS: Glucose Point of Care 106 mg/dl (65-105)
[2020-12-21 16:57] LABS: Glucose Point of Care 129 mg/dl (65-105)
[2020-12-21] MEDS: LORazepam (*CRX) 0.5 MG TABLET 0.25 MG PO (19:43)
[2020-12-21 21:59] LABS: Glucose Point of Care 108 mg/dl (65-105)
[2020-12-22] VITALS (12 sets, daily range): BP systolic 105–149; BP diastolic 35–50; PULSE 62–91; RESP 16–20; TEMP 35.7–36.6; O2SAT 89–100
[2020-12-22] MEDS: CLINDAMYCIN 900 MG/D5W 50 ML 900 MG/50 ML PIGGYBACK 50 MG IVPB ×3 (05:38→22:01)
[2020-12-22] MEDS: LEVOTHYROXINE SODIUM 112 MCG TABLET PO (05:38)
[2020-12-22 06:34] LABS: Basophils Percent Auto 0.4 % (0.2-1.2); Eosinophils Absolute Auto 0.3 K/mm3 (0-0.3); Eosinophils Percent Auto 4.3 % (0-4.4); Hematocrit 27.4 % (37.0-47.0); Hemoglobin 9.1 g/dL (12.0-15.0); Immature Granulocyte Absolute 0.97 K/mm3 (0.00-0.031); Immature Granulocyte Percent A 12.1 % (0-0.5); Lymphocytes Absolute Auto 0.96 K/mm3 (0.9-3.2); Mean Corpuscular HGB Conc 33.2 g/dl (32-36); Mean Corpuscular Volume 90.4 fl (80-100); Mean Platelet Volume 9.4 fl (7.4-10.4); Monocytes Absolute Auto 0.6 K/mm3 (0.1-0.6); Neutrophils Absolute Auto 5.1 K/mm3 (1.3-6.7); Neutrophils Percent Auto 63.2 % (45.5-73.1); Platelet Count Result 407 k/mm3 (150-375); Red Blood Count 3.03 M/mm3 (4.2-5.4); Red Cell Distribution Width 13.4 % (11.5-14.5)
[2020-12-22 06:45] LABS: Anion Gap 7 mmol/L (8-16); Blood Urea Nitrogen 36 mg/dL (7-17); Calcium 8.7 mg/dL (8.4-10.2); Carbon Dioxide 23 mmol/L (22-30); Chloride 98 mmol/L (98-107); Estimated CRCL calculation 45 ml/min; Estimated Glomerular Filt Rate 48; Glucose 95 mg/dL (65-110); Potassium 4.7 mmol/L (3.4-5.0); Sodium 128 mmol/L (137-145)
[2020-12-22 08:38] LABS: Glucose Point of Care 123 mg/dl (65-105)
[2020-12-22] MEDS: FERROUS SULFATE 324 MG TABLET BY MOUTH ×2 (08:48→16:41)
[2020-12-22] MEDS: hydrALAZINE HCL 50 MG TABLET PO ×3 (08:48→16:41)
[2020-12-22] MEDS: ASPIRIN 81 MG ENTERIC TABLET PO (08:48)
[2020-12-22] MEDS: ATORVASTATIN 40 MG TABLET PO (08:48)
[2020-12-22] MEDS: OMEGA 3 POLYUNSAT FATTY ACIDS 1 GM CAP PO ×3 (08:48→16:41)
[2020-12-22] MEDS: lisinopriL 20 MG TABLET PO (08:49)
[2020-12-22] MEDS: HEPARIN SODIUM 5,000 UNITS/ML VIAL 5000 UNITS SUB-Q ×2 (08:49→21:45)
[2020-12-22] MEDS: MULTIVITAMINS THERAPEUTIC TAB (*BKC) 1 TABLET PO (08:49)
[2020-12-22] MEDS: INSULIN DETEMIR 100 UNITS/ML 10 UNITS SUB-Q ×2 (08:49→16:45)
[2020-12-22] MEDS: INSULIN ASPART (*BKC) 100 UNITS/ML SUB-Q ×2 (08:50→16:44)
[2020-12-22] MEDS: TOLNAFTATE 1% POWDER 45 GM BTL 1 APPLIC TOPICAL ×2 (08:52→21:46)
[2020-12-22] MEDS: SODIUM CHLORIDE 0.9% IV 1,000 ML 50 ML IV CONT (09:46)
[2020-12-22] MEDS: CITALOPRAM HYDROBROMIDE 20 MG TABLET PO (10:12)
--- NOTE | 2020-12-22 11:19 | PC.NURSE ---
On 12/22/20, the student, [Melissa Hudson ], provided care and completed [employer] documentation on this patient. I have reviewed the student's documentation and agree with the findings.
[2020-12-22 11:47] LABS: Glucose Point of Care 105 mg/dl (65-105)
[2020-12-22 16:43] LABS: Glucose Point of Care 116 mg/dl (65-105)
--- NOTE | 2020-12-22 17:13 | PM.IMPN ---
Progress Note: A&P Assessment and Plan (1) Acute hyponatremia: Code(s): E87.1 - Hypo-osmolality and hyponatremia Status: Acute Assessment and Plan: Improving Continue to HOLD DIURETICS, will hold randa Gentle hydration for 24 hours, reassess Recheck bmp in a.m. (2) Generalized weakness: Code(s): R53.1 - Weakness Status: Acute Assessment and Plan: PATIENT IS VERY DECONDITIONED PT/OT Supportive care Would benefit from SNF at d/c Pt is requesting [facility] (3) CKD (chronic kidney disease): Qualifiers: Chronic kidney disease stage: stage 3 (moderate) Chronic kidney disease stage 3 subtype: unspecified whether 3a or 3b Qualified Code(s): N18.30 - Chronic kidney disease, stage 3 unspecified Code(s): N18.9 - Chronic kidney disease, unspecified Status: Acute Assessment and Plan: BUN AND CREATININE AT PATIENT'S BASELINE CONTINUE TO MONITOR (4) Hyperkalemia: Code(s): E87.5 - Hyperkalemia Status: Acute Assessment and Plan: Resolved Hold LISINOPRIL S/p Kayexalate CONTINUE TO MONITOR (5) Insulin dependent type 2 diabetes mellitus: Code(s): E11.9 - Type 2 diabetes mellitus without complications; Z79.4 - care home (current) use of insulin Status: Acute Assessment and Plan: ACCU-CHEKS AC AND HS INSULIN SLIDING SCALE NEEDED CONTINUE TO MONITOR (6) Abdominal wall cellulitis: Code(s): L03.311 - Cellulitis of abdominal wall Status: Acute Assessment and Plan: Continue CLINDA Follow WOUND CARE nurse following (7) Morbid obesity: Code(s): E66.01 - Morbid (severe) obesity due to excess calories Status: Acute Assessment and Plan: 1800 CALORIE RESTRICTED DIET (8) Essential (primary) hypertension: Code(s): I10 - Essential (primary) hypertension Status: Acute Assessment and Plan: CONTINUE HYDRALAZINE CONTINUE TO MONITOR Subjective Date/time seen: 12/22/20 17:13 Interval history: pt up to chair having breakfast; denies any new complaints; no acute events overnight Review of Systems Review of Systems: All systems reviewed & are unremarkable except as noted in HPI and below ROS unobtainable: Yes unobtainable due to medical condition Exam Narrative: Exam Narrative: LAYING IN BED Const: General: cooperative, comfortable, no acute distress, well developed, alert, awake and ill appearing chronically Nutritional Appearance: obese morbidly obese Orientation/consciousness: patient oriented x3 HENMT: Head: normal to inspection, normocephalic and atraumatic Ears: hearing grossly normal bilaterally and external ears normal General nose exam: Normal external nose present Face and sinus: normal facial exam and face symmetric Mouth: Yes Normal oral and palatal mucosa present Eyes: General: appearance normal, both eyes and all related structures Alignment and Position: alignment normal Sclera: sclerae normal Pupils: Equal, round and reactive pupils present EOM: EOMs intact bilaterally Neck: Neck: full ROM, no lymphadenopathy, trachea midline and no JVD Thyroid: thyroid normal Lymphatic: no lymphadenopathy noted Chest: Chest palpation & inspection: normal inspection of the chest Resp: Effort & Inspection: normal respiratory effort and able to speak in complete sentences Auscultation: clear to auscultation bilaterally Cardio: Jugular venous distension: no JVD Rate: regular rate Rhythm: regular rhythm Heart sounds: S1 normal heart sound present and S2 normal heart sound present GI: Inspection: normal to inspection and Pannus present Auscultation: normal bowel sounds : General: Yes no CVA tenderness and Yes deferred Back/Spine/Pelvis: Back: no CVA tenderness Skin: General skin exam: normal color Rashes: rashes noted swelling anterior abdomen distribution ( INTERTRIGINOUS AREAS AND GROWING WELL UNDERNEATH THE PANNUS) and tender Wounds: wounds n
[2020-12-22] MEDS: LORazepam (*CRX) 0.5 MG TABLET 0.25 MG PO (21:46)
[2020-12-23] VITALS (9 sets, daily range): BP systolic 103–146; BP diastolic 42–87; PULSE 61–98; RESP 18–20; TEMP 36–36.2; O2SAT 97–99
[2020-12-23] MEDS: SODIUM CHLORIDE 0.9% IV 1,000 ML 50 ML IV CONT (03:04)
[2020-12-23] MEDS: LEVOTHYROXINE SODIUM 112 MCG TABLET PO (05:10)
[2020-12-23 08:35] LABS: Glucose Point of Care 98 mg/dl (65-105)
[2020-12-23] MEDS: hydrALAZINE HCL 50 MG TABLET PO ×4 (09:16→21:49)
[2020-12-23] MEDS: CITALOPRAM HYDROBROMIDE 20 MG TABLET PO (09:17)
[2020-12-23] MEDS: TOLNAFTATE 1% POWDER 45 GM BTL 1 APPLIC TOPICAL ×2 (09:17→21:55)
[2020-12-23] MEDS: FERROUS SULFATE 324 MG TABLET BY MOUTH ×2 (09:17→17:14)
[2020-12-23] MEDS: OMEGA 3 POLYUNSAT FATTY ACIDS 1 GM CAP PO ×3 (09:17→17:14)
[2020-12-23] MEDS: ASPIRIN 81 MG ENTERIC TABLET PO (09:17)
[2020-12-23] MEDS: HEPARIN SODIUM 5,000 UNITS/ML VIAL 5000 UNITS SUB-Q ×2 (09:17→21:49)
[2020-12-23] MEDS: MULTIVITAMINS THERAPEUTIC TAB (*BKC) 1 TABLET PO (09:17)
[2020-12-23] MEDS: INSULIN DETEMIR 100 UNITS/ML 10 UNITS SUB-Q ×2 (09:19→17:14)
[2020-12-23 10:03] LABS: Hematocrit 26.3 % (37.0-47.0); Hemoglobin 8.9 g/dL (12.0-15.0); Mean Corpuscular HGB Conc 33.8 g/dl (32-36); Mean Corpuscular Hemoglobin 30.7 pg (26-34); Mean Corpuscular Volume 90.7 fl (80-100); Mean Platelet Volume 9.2 fl (7.4-10.4); Platelet Count Result 364 k/mm3 (150-375); Red Cell Distribution Width 13.5 % (11.5-14.5); White Blood Count 8.6 K/mm3 (4.5-10.0)
[2020-12-23 10:16] LABS: Anion Gap 8 mmol/L (8-16); Blood Urea Nitrogen 35 mg/dL (7-17); Calcium 8.6 mg/dL (8.4-10.2); Carbon Dioxide 21 mmol/L (22-30); Chloride 97 mmol/L (98-107); Estimated CRCL calculation 45 ml/min; Estimated Glomerular Filt Rate 48; Glucose 128 mg/dL (65-110); Potassium 4.8 mmol/L (3.4-5.0); Sodium 126 mmol/L (137-145)
--- NOTE | 2020-12-23 11:32 | PM.IMPN ---
Progress Note: A&P Assessment and Plan (1) Acute hyponatremia: Code(s): E87.1 - Hypo-osmolality and hyponatremia Status: Acute Assessment and Plan: 126 today, Continue to HOLD DIURETICS, will hold randa Stop IVF Fluid restriction 1500 Recheck bmp in a.m. (2) Generalized weakness: Code(s): R53.1 - Weakness Status: Acute Assessment and Plan: PATIENT IS VERY DECONDITIONED PT/OT Supportive care Would benefit from SNF at d/c Pt is requesting [facility] (3) CKD (chronic kidney disease): Qualifiers: Chronic kidney disease stage: stage 3 (moderate) Chronic kidney disease stage 3 subtype: unspecified whether 3a or 3b Qualified Code(s): N18.30 - Chronic kidney disease, stage 3 unspecified Code(s): N18.9 - Chronic kidney disease, unspecified Status: Acute Assessment and Plan: Stable BUN AND CREATININE AT PATIENT'S BASELINE CONTINUE TO MONITOR (4) Hyperkalemia: Code(s): E87.5 - Hyperkalemia Status: Acute Assessment and Plan: Resolved Hold LISINOPRIL S/p Kayexalate CONTINUE TO MONITOR (5) Insulin dependent type 2 diabetes mellitus: Code(s): E11.9 - Type 2 diabetes mellitus without complications; Z79.4 - residential (current) use of insulin Status: Acute Assessment and Plan: ACCU-CHEKS AC AND HS INSULIN SLIDING SCALE NEEDED CONTINUE TO MONITOR (6) Abdominal wall cellulitis: Code(s): L03.311 - Cellulitis of abdominal wall Status: Acute Assessment and Plan: Continue CLINDA BC NGTD WOUND CARE nurse following (7) Morbid obesity: Code(s): E66.01 - Morbid (severe) obesity due to excess calories Status: Acute Assessment and Plan: 1800 CALORIE RESTRICTED DIET (8) Essential (primary) hypertension: Code(s): I10 - Essential (primary) hypertension Status: Acute Assessment and Plan: CONTINUE HYDRALAZINE CONTINUE TO MONITOR Subjective Date/time seen: 12/23/20 11:32 Interval history: pt up to chair having breakfast; denies any new complaints; no acute events overnight Review of Systems Review of Systems: All systems reviewed & are unremarkable except as noted in HPI and below ROS unobtainable: Yes unobtainable due to medical condition Exam Narrative: Exam Narrative: LAYING IN BED Const: General: cooperative, comfortable, no acute distress, well developed, alert, awake and ill appearing chronically Nutritional Appearance: obese morbidly obese Orientation/consciousness: patient oriented x3 HENMT: Head: normal to inspection, normocephalic and atraumatic Ears: hearing grossly normal bilaterally and external ears normal General nose exam: Normal external nose present Face and sinus: normal facial exam and face symmetric Mouth: Yes Normal oral and palatal mucosa present Eyes: General: appearance normal, both eyes and all related structures Alignment and Position: alignment normal Sclera: sclerae normal Pupils: Equal, round and reactive pupils present EOM: EOMs intact bilaterally Neck: Neck: full ROM, no lymphadenopathy, trachea midline and no JVD Thyroid: thyroid normal Lymphatic: no lymphadenopathy noted Chest: Chest palpation & inspection: normal inspection of the chest Resp: Effort & Inspection: normal respiratory effort and able to speak in complete sentences Auscultation: clear to auscultation bilaterally Cardio: Jugular venous distension: no JVD Rate: regular rate Rhythm: regular rhythm Heart sounds: S1 normal heart sound present and S2 normal heart sound present GI: Inspection: normal to inspection and Pannus present Auscultation: normal bowel sounds : General: Yes no CVA tenderness and Yes deferred Back/Spine/Pelvis: Back: no CVA tenderness Skin: General skin exam: normal color Rashes: rashes noted swelling anterior abdomen distribution ( INTERTRIGINOUS AREAS AND GROWING WELL UNDERNEATH THE PANNUS) and tender Wounds: wounds noted
[2020-12-23 12:03] LABS: Glucose Point of Care 121 mg/dl (65-105)
[2020-12-23] MEDS: ATORVASTATIN 40 MG TABLET PO (12:23)
[2020-12-23] MEDS: CLINDAMYCIN 900 MG/D5W 50 ML 900 MG/50 ML PIGGYBACK 50 MG IVPB ×2 (13:32→21:50)
[2020-12-23 16:54] LABS: Glucose Point of Care 133 mg/dl (65-105)
[2020-12-24] VITALS (9 sets, daily range): BP systolic 125–152; BP diastolic 38–88; PULSE 54–90; RESP 18–20; TEMP 35.8–36.2; O2SAT 97–98
[2020-12-24 00:10] LABS: Glucose Point of Care 107 mg/dl (65-105)
[2020-12-24] MEDS: LEVOTHYROXINE SODIUM 112 MCG TABLET PO (06:25)
[2020-12-24] MEDS: CLINDAMYCIN 900 MG/D5W 50 ML 900 MG/50 ML PIGGYBACK 50 MG IVPB ×3 (06:29→21:01)
--- NOTE | 2020-12-24 08:01 | P.PN_ITS ---
Progress Note: A&P Assessment and Plan (1) Acute hyponatremia: Code(s): E87.1 - Hypo-osmolality and hyponatremia Status: Acute Assessment and Plan: * NA >121>124>129>130>>128>126>129 improving * Continue to HOLD DIURETICS and randa * continue Fluid restriction 1500 Recheck bmp in a.m. (2) Generalized weakness: Code(s): R53.1 - Weakness Status: Acute Assessment and Plan: * PT/OT * Supportive care * Would benefit from SNF at d/c * Pt is requesting [facility] (3) CKD (chronic kidney disease): Qualifiers: Chronic kidney disease stage: stage 3 (moderate) Chronic kidney disease stage 3 subtype: unspecified whether 3a or 3b Qualified Code(s): N18.30 - Chronic kidney disease, stage 3 unspecified Code(s): N18.9 - Chronic kidney disease, unspecified Status: Acute Assessment and Plan: * Stable * creatinine1.40>1.50>1.20>1.00>0.90>1.10 baseline appears to be within normal limits. improving * avoid nephrotoxic agents * renal dose medication * CMP in a.m. (4) Hyperkalemia: Code(s): E87.5 - Hyperkalemia Status: Acute Assessment and Plan: * Resolved * potassium5.2 on admission currently 5.0 * S/p Kayexalate * CMP in a.m. (5) Insulin dependent type 2 diabetes mellitus: Code(s): E11.9 - Type 2 diabetes mellitus without complications; Z79.4 - terminal computer operator (current) use of insulin Status: Acute Assessment and Plan: * controlled * continue Accu-Cheks with sliding scale hypoglycemic protocol * will adjust medication as needed * A1c 10/20/20 5.8 (6) Abdominal wall cellulitis: Code(s): L03.311 - Cellulitis of abdominal wall Status: Acute Assessment and Plan: * continue clindamycin day day 8 * BC NGTD * WOUND CARE nurse following (7) Morbid obesity: Code(s): E66.01 - Morbid (severe) obesity due to excess calories Status: Acute Assessment and Plan: * 1800 CALORIE RESTRICTED DIET (8) Essential (primary) hypertension: Code(s): I10 - Essential (primary) hypertension Status: Acute Assessment and Plan: * CONTINUE HYDRALAZINE * CONTINUE TO MONITOR * vital signs as ordered * will adjust medication as needed Subjective Date/time seen: 12/24/20 08:01 during this assessment patient was sitting up in chair and in no obvious distress. her night was uneventful she has no complaints at this time. patient had notes that she feels as if her condition has improved. Patient denies cp, sob, palpitation, diarrhea, constipation, lightheadness, headache, dizziness or chills and fevers. Review of Systems Review of Systems: Narrative: A 14 organ system Review of Systems was performed and pertinent positives included in the HPI, otherwise remaining ROS is negative. All systems reviewed & are unremarkable except as noted in HPI and below Exam Narrative: Exam Narrative: GENERAL: morbidly obese, in no apparent distress. HEAD: normocephalic, atraumatic. EYES: PERRL. Sclera clear/white. Vision is grossly intact. EARS: External ears normal, auditory canals clear and without drainage, TMs normal without perforation. Hearing grossly intact. NOSE: External nose normal with no obvious nasal discharge, nares without redness, no rhinorrhea. THROAT: Mucous membranes moist, posterior pharynx clear. NECK: Neck supple, non-tender without lymphadenopathy, masses or thyromegaly. CARDIOVASCULAR: Regular rate and rhythm without murmurs, gallops, or rubs. RESPIRATORY:
--- NOTE | 2020-12-24 08:01 | WPDPN ---
Progress Note: A&P Assessment and Plan (1) Acute hyponatremia: Code(s): E87.1 - Hypo-osmolality and hyponatremia Status: Acute Assessment and Plan: NA >121>124>129>130>>128>126>129 improving Continue to HOLD DIURETICS and randa continue Fluid restriction 1500 Recheck bmp in a.m. (2) Generalized weakness: Code(s): R53.1 - Weakness Status: Acute Assessment and Plan: PT/OT Supportive care Would benefit from SNF at d/c Pt is requesting [facility] (3) CKD (chronic kidney disease): Qualifiers: Chronic kidney disease stage: stage 3 (moderate) Chronic kidney disease stage 3 subtype: unspecified whether 3a or 3b Qualified Code(s): N18.30 - Chronic kidney disease, stage 3 unspecified Code(s): N18.9 - Chronic kidney disease, unspecified Status: Acute Assessment and Plan: Stable creatinine1.40>1.50>1.20>1.00>0.90>1.10 baseline appears to be within normal limits. improving avoid nephrotoxic agents renal dose medication CMP in a.m. (4) Hyperkalemia: Code(s): E87.5 - Hyperkalemia Status: Acute Assessment and Plan: Resolved potassium5.2 on admission currently 5.0 S/p Kayexalate CMP in a.m. (5) Insulin dependent type 2 diabetes mellitus: Code(s): E11.9 - Type 2 diabetes mellitus without complications; Z79.4 - bed bug exterminator (current) use of insulin Status: Acute Assessment and Plan: controlled continue Accu-Cheks with sliding scale hypoglycemic protocol will adjust medication as needed A1c 10/20/20 5.8 (6) Abdominal wall cellulitis: Code(s): L03.311 - Cellulitis of abdominal wall Status: Acute Assessment and Plan: continue clindamycin day day 8 NGTD WOUND CARE nurse following (7) Morbid obesity: Code(s): E66.01 - Morbid (severe) obesity due to excess calories Status: Acute Assessment and Plan: 1800 CALORIE RESTRICTED DIET (8) Essential (primary) hypertension: Code(s): I10 - Essential (primary) hypertension Status: Acute Assessment and Plan: CONTINUE HYDRALAZINE CONTINUE TO MONITOR vital signs as ordered will adjust medication as needed Subjective Date/time seen: 12/24/20 08:01 during this assessment patient was sitting up in chair and in no obvious distress. her night was uneventful she has no complaints at this time. patient had notes that she feels as if her condition has improved. Patient denies cp, sob, palpitation, diarrhea, constipation, lightheadness, headache, dizziness or chills and fevers. Review of Systems Review of Systems: Narrative: A 14 organ system Review of Systems was performed and pertinent positives included in the HPI, otherwise remaining ROS is negative. All systems reviewed & are unremarkable except as noted in HPI and below Exam Narrative: Exam Narrative: GENERAL: morbidly obese, in no apparent distress. HEAD: normocephalic, atraumatic. EYES: PERRL. Sclera clear/white. Vision is grossly intact. EARS: External ears normal, auditory canals clear and without drainage, TMs normal without perforation. Hearing grossly intact. NOSE: External nose normal with no obvious nasal discharge, nares without redness, no rhinorrhea. THROAT: Mucous membranes moist, posterior pharynx clear. NECK: Neck supple, non-tender without lymphadenopathy, masses or thyromegaly. CARDIOVASCULAR: Regular rate and rhythm without murmurs, gallops, or rubs. RESPIRATORY: Clear to auscultation. Breath sounds equal bilaterally. No wheezes, rales, or rhonchi. GASTROINTESTINAL: Abdomen soft, non-tender, nondistended. Bowel sounds are active. No hepato-splenomegaly, or palpable masses. No guarding. SKIN: warm, intact with no suspicious lesions or rash, good texture and turgor. NEURO: awake, alert, and oriented to person, place and time. There were no obvious focal neurologic abnormalities. Steady gait EXTREMITIES: Normal range of mo
[2020-12-24] MEDS: FERROUS SULFATE 324 MG TABLET BY MOUTH ×2 (08:05→17:36)
[2020-12-24] MEDS: MULTIVITAMINS THERAPEUTIC TAB (*BKC) 1 TABLET PO (08:05)
[2020-12-24] MEDS: HEPARIN SODIUM 5,000 UNITS/ML VIAL 5000 UNITS SUB-Q ×2 (08:05→20:37)
[2020-12-24] MEDS: ATORVASTATIN 40 MG TABLET PO (08:05)
[2020-12-24] MEDS: ASPIRIN 81 MG ENTERIC TABLET PO (08:05)
[2020-12-24] MEDS: hydrALAZINE HCL 50 MG TABLET PO ×4 (08:05→20:37)
[2020-12-24] MEDS: OMEGA 3 POLYUNSAT FATTY ACIDS 1 GM CAP PO ×3 (08:05→17:36)
[2020-12-24] MEDS: CITALOPRAM HYDROBROMIDE 20 MG TABLET PO (08:05)
[2020-12-24] MEDS: INSULIN ASPART (*BKC) 100 UNITS/ML SUB-Q ×3 (08:06→17:36)
[2020-12-24] MEDS: TOLNAFTATE 1% POWDER 45 GM BTL 1 APPLIC TOPICAL ×2 (08:06→20:37)
[2020-12-24] MEDS: INSULIN DETEMIR 100 UNITS/ML 10 UNITS SUB-Q ×2 (08:06→17:36)
[2020-12-24 08:11] LABS: Glucose Point of Care 93 mg/dl (65-105)
[2020-12-24 08:55] LABS: Hematocrit 26.3 % (37.0-47.0); Hemoglobin 8.6 g/dL (12.0-15.0); Mean Corpuscular HGB Conc 32.7 g/dl (32-36); Mean Corpuscular Hemoglobin 30.6 pg (26-34); Mean Corpuscular Volume 93.6 fl (80-100); Mean Platelet Volume 9.3 fl (7.4-10.4); Platelet Count Result 317 k/mm3 (150-375); Red Blood Count 2.81 M/mm3 (4.2-5.4); Red Cell Distribution Width 13.8 % (11.5-14.5); White Blood Count 7.9 K/mm3 (4.5-10.0)
[2020-12-24 09:30] LABS: Anion Gap 6 mmol/L (8-16); Blood Urea Nitrogen 37 mg/dL (7-17); Calcium 8.5 mg/dL (8.4-10.2); Carbon Dioxide 23 mmol/L (22-30); Chloride 100 mmol/L (98-107); Estimated CRCL calculation 45 ml/min; Estimated Glomerular Filt Rate 48; Glucose 111 mg/dL (65-110); Sodium 129 mmol/L (137-145)
[2020-12-24 12:14] LABS: Glucose Point of Care 96 mg/dl (65-105)
[2020-12-24 17:06] LABS: Glucose Point of Care 92 mg/dl (65-105)
[2020-12-24] MEDS: LORazepam (*CRX) 0.5 MG TABLET 0.25 MG PO (19:17)
[2020-12-25] VITALS: PULSE 53
[2020-12-25 04:00] VITALS: PULSE 65
[2020-12-25 05:33] VITALS: BP 151/47; PULSE 72; RESP 18; TEMP 36; O2SAT 100
[2020-12-25] MEDS: CLINDAMYCIN 900 MG/D5W 50 ML 900 MG/50 ML PIGGYBACK 50 MG IVPB (05:39)
[2020-12-25] MEDS: LEVOTHYROXINE SODIUM 112 MCG TABLET PO (05:39)
[2020-12-25 06:51] LABS: Hematocrit 25.2 % (37.0-47.0); Hemoglobin 8.3 g/dL (12.0-15.0); Mean Corpuscular HGB Conc 32.9 g/dl (32-36); Mean Corpuscular Hemoglobin 30.4 pg (26-34); Mean Corpuscular Volume 92.3 fl (80-100); Mean Platelet Volume 9.8 fl (7.4-10.4); Platelet Count Result 299 k/mm3 (150-375); Red Blood Count 2.73 M/mm3 (4.2-5.4); Red Cell Distribution Width 14.3 % (11.5-14.5); White Blood Count 7.1 K/mm3 (4.5-10.0)
[2020-12-25 07:07] LABS: Glucose Point of Care 82 mg/dl (65-105)
[2020-12-25 07:34] LABS: Alanine Aminotransferase 23 U/L (4-35); Albumin Level 2.8 g/dL (3.5-5.1); Alkaline Phosphatase 39 U/L (38-126); Anion Gap 3 mmol/L (8-16); Aspartate Amino Transferase 44 U/L (14-36); Bilirubin,Total 0.4 mg/dL (0.2-1.3); Blood Urea Nitrogen 35 mg/dL (7-17); Calcium 8.4 mg/dL (8.4-10.2); Carbon Dioxide 23 mmol/L (22-30); Chloride 105 mmol/L (98-107); Estimated CRCL calculation 49 ml/min; Estimated Glomerular Filt Rate 53; Glucose 71 mg/dL (65-110); Magnesium 2.1 mg/dL (1.6-2.3); Potassium 5.3 mmol/L (3.4-5.0); Sodium 131 mmol/L (137-145)
[2020-12-25 08:00] VITALS: PULSE 67
[2020-12-25] MEDS: OMEGA 3 POLYUNSAT FATTY ACIDS 1 GM CAP PO (09:26)
[2020-12-25] MEDS: ATORVASTATIN 40 MG TABLET PO (09:27)
[2020-12-25] MEDS: ASPIRIN 81 MG ENTERIC TABLET PO (09:27)
[2020-12-25] MEDS: hydrALAZINE HCL 50 MG TABLET PO (09:27)
[2020-12-25] MEDS: MULTIVITAMINS THERAPEUTIC TAB (*BKC) 1 TABLET PO (09:27)
[2020-12-25] MEDS: FERROUS SULFATE 324 MG TABLET BY MOUTH (09:27)
[2020-12-25] MEDS: HEPARIN SODIUM 5,000 UNITS/ML VIAL 5000 UNITS SUB-Q (09:27)
[2020-12-25] MEDS: CITALOPRAM HYDROBROMIDE 20 MG TABLET PO (09:27)
[2020-12-25] MEDS: TOLNAFTATE 1% POWDER 45 GM BTL 1 APPLIC TOPICAL (09:28)
[2020-12-25] MEDS: INSULIN DETEMIR 100 UNITS/ML 10 UNITS SUB-Q (09:32)
[2020-12-25 09:38] LABS: Glucose Point of Care 103 mg/dl (65-105)
--- NOTE | 2020-12-25 10:22 | P.DS_ITS ---
DS: Admitting Diagnosis Admitting Diagnosis hyponatremia/cellulitis DS: Discharge Diagnosis Discharge Diagnosis (1) Acute hyponatremia: Code(s): E87.1 - Hypo-osmolality and hyponatremia Status: Acute Assessment and Plan: * NA >121>124>129>130>>128>126>129 improving * Continue to HOLD DIURETICS and randa * continue Fluid restriction 1500 * Recheck bmp in a.m. sodium this morning is 131 (2) Generalized weakness: Code(s): R53.1 - Weakness Status: Acute Assessment and Plan: * PT/OT * Supportive care * Would benefit from SNF at d/c * Pt is requesting [facility] patient working with PT OT and has been able to sit in the chair comfortably (3) CKD (chronic kidney disease): Qualifiers: Chronic kidney disease stage: stage 3 (moderate) Chronic kidney disease stage 3 subtype: unspecified whether 3a or 3b Qualified Code(s): N18.30 - Chr onic kidney disease, stage 3 unspecified Code(s): N18.9 - Chronic kidney disease, unspecified Status: Acute Assessment and Plan: * Stable * creatinine1.40>1.50>1.20>1.00>0.90>1.10 baseline appears to be within normal limits. improving * avoid nephrotoxic agents * renal dose medication * CMP in a.m. creatinine is down to 1 today (4) Hyperkalemia: Code(s): E87.5 - Hyperkalemia Status: Acute Assessment and Plan: * Resolved * potassium5.2 on admission currently 5.0 * S/p Kayexalate * CMP in a.m. potassium still a little high at 5.3 however admission she was 5 (5) Insulin dependent type 2 diabetes mellitus: Code(s): E11.9 - Type 2 diabetes mellitus without complications; Z79.4 - terminal carman (current) use of insulin Status: Acute Assessment and Plan: * controlled * continue Accu-Cheks with sliding scale hypoglycemic protocol * will adjust medication as needed * A1c 10/20/20 5.8 (6) Abdominal wall cellulitis: Code(s): L03.311 - Cellulitis of abdominal wall Status: Acute Assessment and Plan: * continue clindamycin day day 8 * BC NGTD * WOUND CARE nurse following will continue the clindamycin for 6 more days p.o. (7) Morbid obesity: Code(s): E66.01 - Morbid (severe) obesity due to excess calories Status: Acute Assessment and Plan: * 1800 CALORIE RESTRICTED DIET (8) Essential (primary) hypertension: Code(s): I10 - Essential (primary) hypertension Status: Acute Assessment and Plan: * CONTINUE HYDRALAZINE * CONTINUE TO MONITOR * vital signs as ordered * will adjust medication as needed blood pressure is a stable at 151/47 DS: Summary Hospital Course Hospital Course: This is a 80-year-old female with past medical history significant for type 2 diabetes mellitus insulin dependent, hypothyroidism hypertension morbid obesity, chronic kidney disease. patient was admitted on 12/17/2020 for confusion. Initial labs showed a sodium of 121 potassium of 5.2 and BUN and creatinine of 51/1.40. Patient was treated with IV fluids and later on to a fluid restriction. Kidneys were protected with in limiting the use of nephrotoxic medications and hydration. Patient also received clindamycin for abdominal cellulitis. Seems as if the cellulitis has improved however patient is on day 8 of clindamycin will continue for another 6 days for a total course of 14 days. Currently patient has a sodium of 131 a potassium of 5.3 and her BUN and creatinine are 35 and 1 white blood cell count
--- NOTE | 2020-12-25 10:22 | PM.DS ---
DS: Admitting Diagnosis Admitting Diagnosis hyponatremia/cellulitis DS: Discharge Diagnosis Discharge Diagnosis (1) Acute hyponatremia: Code(s): E87.1 - Hypo-osmolality and hyponatremia Status: Acute Assessment and Plan: NA >121>124>129>130>>128>126>129 improving Continue to HOLD DIURETICS and randa continue Fluid restriction 1500 Recheck bmp in a.m. sodium this morning is 131 (2) Generalized weakness: Code(s): R53.1 - Weakness Status: Acute Assessment and Plan: PT/OT Supportive care Would benefit from SNF at d/c Pt is requesting [facility] patient working with PT OT and has been able to sit in the chair comfortably (3) CKD (chronic kidney disease): Qualifiers: Chronic kidney disease stage: stage 3 (moderate) Chronic kidney disease stage 3 subtype: unspecified whether 3a or 3b Qualified Code(s): N18.30 - Chronic kidney disease, stage 3 unspecified Code(s): N18.9 - Chronic kidney disease, unspecified Status: Acute Assessment and Plan: Stable creatinine1.40>1.50>1.20>1.00>0.90>1.10 baseline appears to be within normal limits. improving avoid nephrotoxic agents renal dose medication CMP in a.m. creatinine is down to 1 today (4) Hyperkalemia: Code(s): E87.5 - Hyperkalemia Status: Acute Assessment and Plan: Resolved potassium5.2 on admission currently 5.0 S/p Kayexalate CMP in a.m. potassium still a little high at 5.3 however admission she was 5 (5) Insulin dependent type 2 diabetes mellitus: Code(s): E11.9 - Type 2 diabetes mellitus without complications; Z79.4 - oysterman (current) use of insulin Status: Acute Assessment and Plan: controlled continue Accu-Cheks with sliding scale hypoglycemic protocol will adjust medication as needed A1c 10/20/20 5.8 (6) Abdominal wall cellulitis: Code(s): L03.311 - Cellulitis of abdominal wall Status: Acute Assessment and Plan: continue clindamycin day day 8 BC NGTD WOUND CARE nurse following will continue the clindamycin for 6 more days p.o. (7) Morbid obesity: Code(s): E66.01 - Morbid (severe) obesity due to excess calories Status: Acute Assessment and Plan: 1800 CALORIE RESTRICTED DIET (8) Essential (primary) hypertension: Code(s): I10 - Essential (primary) hypertension Status: Acute Assessment and Plan: CONTINUE HYDRALAZINE CONTINUE TO MONITOR vital signs as ordered will adjust medication as needed blood pressure is a stable at 151/47 DS: Summary Hospital Course Hospital Course: This is a 80-year-old female with past medical history significant for type 2 diabetes mellitus insulin dependent, hypothyroidism hypertension morbid obesity, chronic kidney disease. patient was admitted on 12/17/2020 for confusion. Initial labs showed a sodium of 121 potassium of 5.2 and BUN and creatinine of 51/1.40. Patient was treated with IV fluids and later on to a fluid restriction. Kidneys were protected with in limiting the use of nephrotoxic medications and hydration. Patient also received clindamycin for abdominal cellulitis. Seems as if the cellulitis has improved however patient is on day 8 of clindamycin will continue for another 6 days for a total course of 14 days. Currently patient has a sodium of 131 a potassium of 5.3 and her BUN and creatinine are 35 and 1 white blood cell count is 7.1 and stable along with her H&H. Blood cultures have no growth. Today patient says she has no problems and denies chest pain, shortness of breath, nausea, vomiting, abdominal pain, sweats, chills, fevers or headache. Patient says she has feels a lot better she waited in does ready to go home her legs are fine and she has no pain. Status at Discharge Functional status at discharge: uses cane/walker Overall status at discharge: patient is progressing back to base
== END 2020-12-25 11:20 | disposition home health service (06) | DRG 641 ==
LOC: ANHED 18:37 → ANH3MED 18:53
PROVIDERS: Internal Medicine; Nurse Practitioner; Admitting Provider Internal Medicine; Emergency Provider Emergency Medicine; PCP Internal Medicine; Visit Provider Nurse Practitioner Adult Health
DX: E87.1 Hypo-osmolality and hyponatremia (principal); L03.311 Cellulitis of abdominal wall; I12.9 Hypertensive chronic kidney disease with stage 1 through stage 4 chronic kidney disease, or unspecified chronic kidney disease; N18.30 Chronic kidney disease, stage 3 unspecified; E11.22 Type 2 diabetes mellitus with diabetic chronic kidney disease; E86.0 Dehydration; E87.5 Hyperkalemia; E03.9 Hypothyroidism, unspecified; E78.5 Hyperlipidemia, unspecified; M19.90 Unspecified osteoarthritis, unspecified site; F32.9 Major depressive disorder, single episode, unspecified; F41.9 Anxiety disorder, unspecified; E66.01 Morbid (severe) obesity due to excess calories; Z68.37 Body mass index [BMI] 37.0-37.9, adult; Z79.4 Long term (current) use of insulin; Z85.528 Personal history of other malignant neoplasm of kidney; Z90.5 Acquired absence of kidney
CPT/HCPCS: 36415; 36600; 51701; 70450; 71045; 80048; 80053; 81003; 82805; 82948; 83735; 83880; 84443; 85025; 85027; 85610; 85730; 87040; 93005; 96361; 96365; 96366; 96372; 97110; 97116; 97161; 97165; 97530; 97535; 99285; A9270; G0378; J1644; J1815; J7030; J7040

== ENCOUNTER 2020-12-28 10:46 | Outpatient (NON) | payer MEDICARE, SELFPAY ==
[2020-12-28 11:35] LABS: Alanine Aminotransferase 21 U/L (4-35); Albumin Level 3.4 g/dL (3.5-5.1); Alkaline Phosphatase 47 U/L (38-126); Anion Gap 7 mmol/L (8-16); Aspartate Amino Transferase 31 U/L (14-36); Bilirubin,Total 0.4 mg/dL (0.2-1.3); Blood Urea Nitrogen 27 mg/dL (7-17); Calcium 8.7 mg/dL (8.4-10.2); Carbon Dioxide 25 mmol/L (22-30); Chloride 101 mmol/L (98-107); Estimated Glomerular Filt Rate 48; Glucose 101 mg/dL (65-110); Potassium 5.2 mmol/L (3.4-5.0); Sodium 133 mmol/L (137-145)
== END 2020-12-28 10:47 | disposition home or self-care (01) ==
LOC: HOME HLTH 10:55
PROVIDERS: PCP Family Medicine; Visit Provider Nurse Practitioner
DX: E87.1 Hypo-osmolality and hyponatremia (principal); E87.5 Hyperkalemia
CPT/HCPCS: 80053

== ENCOUNTER 2021-01-03 12:26 | Outpatient (CLI) | payer MEDICARE, SELFPAY ==
--- NOTE | ~2021-01-03 | US_ITS ---
EXAMINATION: US venous doppler [facility] DATE: 01/03/2021 13:15 INDICATION: Bilateral lower limb pain and swelling TECHNIQUE: Frausto scale images without and with compression and Doppler images of the bilateral lower e xtremity veins were obtained. COMPARISON: 03/20/2020 FINDINGS: The examination is limited by the patient's body habitus. The right common femoral vein, profunda femoral vein, femoral vein, popliteal vein, peroneal trunk, p osterior tibial veins, and greater saphenous vein are patent. The left common femoral vein, profunda femoral vein, femoral vein, popliteal vein, peroneal trunk, po sterior tibial veins, and greater saphenous vein are patent. IMPRESSION: 1. Patent bilateral lower extremity veins. No evidence of deep venous thrombosis common sensitivity l imited by body habitus. Reviewed, dictated and finalized at location A. IMPRESSION: 1. Patent bilateral lower extremity veins. No evidence of deep venous thrombosi s common sensitivity limited by body habitus.
== END 2021-01-03 12:27 | disposition home or self-care (01) ==
LOC: ANHIMG 12:26
PROVIDERS: PCP Family Medicine; Visit Provider Physician Assistant Medical
DX: M79.669 Pain in unspecified lower leg (principal); M79.89 Other specified soft tissue disorders
CPT/HCPCS: 93970

== ENCOUNTER 2021-03-12 06:32 | Emergency (ER) | payer MEDICARE, SELFPAY ==
--- NOTE | ~2021-03-12 | XR_ITS ---
EXAMINATION: XR hip RT 2V w AP pelvis EXAM DATE: 03/12/2021 08:40 INDICATION: No known recent injury provided at this time. Pain of the right hip. TECHNIQUE: Right hip frontal, 'frog leg' projections for interpretation. Frontal projection pelvis. There is no prior study for comparison. FINDINGS: Smooth right hip femoral head contour, no radiographic evidence of avascular necrosis. The re is moderate symmetric bilateral hip primary osteoarthritis. There are no acute fractures or disloc ations identified. There is no subcutaneous gas. The soft tissue is unremarkable. There are no ra diopaque foreign bodies. IMPRESSION: Moderate symmetric bilateral hip osteoarthritis. Reviewed, dictated and finalized at location A.
[2021-03-12 06:36] VITALS: BP 142/64; PULSE 56; RESP 16; TEMP 36.8; O2SAT 100
[2021-03-12 07:50] VITALS: BP 156/46; PULSE 61; RESP 18; O2SAT 100
--- NOTE | 2021-03-12 08:02 | ED.GENADULT ---
HPI - General Adult General Chief complaint: Extremity Injury, Lower Stated complaint: LEG PAIN Time Seen by Provider: 03/12/21 07:06 Source: patient History of Present Illness HPI narrative: Patient is a 80 y/o female complaining of right hip pain starting about 4 hours ago. She describes her pain as aching and rates it as 7/10. Walking makes it worse. There is no pain radiation. She denies any injury. Related Data Home Medications Medication Instructions Recorded Confirmed aspirin 81 mg tablet,delayed 81 mg PO DAILY 06/17/19 02/07/21 release multivitamin 1 tablet PO DAILY 06/17/19 02/07/21 acetaminophen 500 mg tablet 1,000 mg PO Q6H PRN tablet 10/04/19 02/07/21 omega-3 fatty acids 1,000 mg 1,000 mg PO TID cap 10/04/19 02/07/21 capsule cyanocobalamin (vitamin B-12) 1,000 mcg PO DAILY 10/27/20 02/07/21 [Vitamin B-12] lisinopril 20 mg PO DAILY 10/27/20 02/07/21 insulin detemir U-100 100 unit/mL 8 unit SUBCUT BID ml 02/07/21 02/07/21 (3 mL) subcutaneous pen Allergies Allergy/AdvReac Type Severity Reaction Status Date / Time diltiazem Allergy Unknown Anxiety Verified 02/07/21 09:48 Review of Systems Constitutional: Constitutional: Denies chills, Denies fever(s), Denies headache(s) and Denies weakness Eyes: Eyes: Denies blurry vision ENT: Denies headache(s) and Denies neck pain Cardiovascular: Cardiovascular: Denies chest pain and Denies dyspnea Respiratory: Respiratory: Denies cough and Denies dyspnea Gastrointestinal: Gastrointestinal: Denies abdominal pain, Denies diarrhea, Denies nausea and Denies vomiting Genitourinary: Genitourinary: Denies hematuria and Denies dysuria Musculoskeletal: Musculoskeletal: Reports as per HPI, Denies back pain, Reports arthralgias (right hip pain) and Denies neck pain Neurologic: Denies headache(s) and Denies weakness PMF Past Medical History Medical History Anxiety BMI 37.0-37.9, adult Chronic anemia Depression Hyperlipidemia Hypertension Hypothyroidism Insulin dependent type 2 diabetes mellitus Osteoarthritis Renal cell carcinoma Status post nephrectomy. Mitra (2012) Surgical History Surgical History History of right nephrectomy (~2000) For renal cell carcinoma. Family History Family History Father Family history of heart disease in male family member before age 55 Diabetes mellitus Family history of cardiovascular disease Family history of malignant neoplasm Hypertension Mother Family history of arthritis Sibling Family history of heart disease in male family member before age 55 Social History Social History Social History: Surrogate decision maker: lalitha Roberts. Code status: Full code. Alcohol intake: never Substance use: never Substance use type: does not use Additional living arrangements comments: The patient lives in [place] with her miniature pincher. 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 Gender identity (if verbalized by the patient): Female Sexual Orientation (if Verbalized by the Patient): Straight or Heterosexual Spiritual care concerns: No Agree to blood products: Yes Exam Const: General: no acute distress and well developed Nutritional Appearance: obese Orientation/consciousness: oriented to person, oriented to place, oriented to time and patient oriented x3 HENMT: Head: normocephalic Ears: external ears normal General nose exam: Normal external nose present Eyes: General: appearance normal, both eyes and all related structures Conjunctivae: conjunctivae normal Neck: Neck: normal visual inspection and full ROM Chest: Chest palpation & inspection: normal inspection of the chest and no tenderness Resp: Effort & Inspection: normal
[2021-03-12 08:05] LABS: Glucose Point of Care 90 mg/dl (65-105)
[2021-03-12] MEDS: ACETAMINOPHEN 325 MG TABLET 650 MG PO (08:07)
[2021-03-12 08:35] LABS: Basophils Percent Auto 0.5 % (0.2-1.2); Eosinophils Absolute Auto 0.2 K/mm3 (0-0.3); Eosinophils Percent Auto 1.7 % (0-4.4); Hematocrit 30.5 % (37.0-47.0); Immature Granulocyte Absolute 0.26 K/mm3 (0.00-0.031); Lymphocytes Percent Auto 10.3 % (18.3-44.2); Mean Corpuscular HGB Conc 32.8 g/dl (32-36); Mean Corpuscular Volume 94.4 fl (80-100); Mean Platelet Volume 10.6 fl (7.4-10.4); Monocytes Absolute Auto 0.7 K/mm3 (0.1-0.6); Neutrophils Absolute Auto 6.7 K/mm3 (1.3-6.7); Neutrophils Percent Auto 76.5 % (45.5-73.1); Platelet Count Result 296 k/mm3 (150-375); Red Blood Count 3.23 M/mm3 (4.2-5.4); Red Cell Distribution Width 13.8 % (11.5-14.5); White Blood Count 8.8 K/mm3 (4.5-10.0)
[2021-03-12 09:41] VITALS: BP 137/41; PULSE 59; RESP 22; O2SAT 100
[2021-03-12 09:55] LABS: Alanine Aminotransferase 12 U/L (4-35); Albumin Level 3.8 g/dL (3.5-5.1); Alkaline Phosphatase 59 U/L (38-126); Anion Gap 6 mmol/L (8-16); Aspartate Amino Transferase 26 U/L (14-36); Bilirubin,Total 0.6 mg/dL (0.2-1.3); Blood Urea Nitrogen 52 mg/dL (7-17); Calcium 8.9 mg/dL (8.4-10.2); Carbon Dioxide 29 mmol/L (22-30); Chloride 98 mmol/L (98-107); Estimated CRCL calculation 36 ml/min; Estimated Glomerular Filt Rate 40; Glucose 100 mg/dL (65-110); Sodium 133 mmol/L (137-145)
--- NOTE | 2021-03-12 10:23 | ECG_ITS ---
Measurements Intervals [place] Rate: 59 P: -6 NC: 190 QRS: 168 QRSD: 149 T: 27 QT: 475 QTc: 474 Interpretive Statements SINUS BRADYCARDIA RIGHT AXIS DEVIATION BORDERLINE AV CONDUCTION DELAY RIGHT BUNDLE BRANCH BLOCK BASELINE ARTIFACT- I, II, III, AVR, AVL, AVF, V1-V6 ABNORMAL ECG Electronically Signed On 03-12-2021 14:34:58 CDT by Ang Dee D.O.
[2021-03-12] MEDS: SODIUM POLYSTYRENE SULFONONATE 15 GM/60 ML BTL PO (11:33)
[2021-03-12 12:36] LABS: Potassium 4.6 mmol/L (3.4-5.0)
[2021-03-12 12:55] VITALS: BP 166/107; PULSE 71; RESP 16; O2SAT 98
--- NOTE | 2021-03-12 14:28 | PC.NURSE ---
spoke with ERP about possible D/C home.
--- NOTE | 2021-03-12 15:04 | PC.NURSE ---
Patient walked without difficulty with walker provided to her, EDP aware of updates.
[2021-03-12 15:35] VITALS: BP 166/60; PULSE 73; O2SAT 98
== END 2021-03-12 15:39 | disposition home or self-care (01) ==
PROVIDERS: Emergency Provider Emergency Medicine; PCP Family Medicine
DX: M25.551 Pain in right hip (principal); E87.5 Hyperkalemia; F41.9 Anxiety disorder, unspecified; F32.A Depression, unspecified; E78.5 Hyperlipidemia, unspecified; I10 Essential (primary) hypertension; E03.9 Hypothyroidism, unspecified; E11.9 Type 2 diabetes mellitus without complications; M19.90 Unspecified osteoarthritis, unspecified site; Z90.5 Acquired absence of kidney
CPT/HCPCS: 36415; 73502; 80053; 82948; 84132; 85025; 93005; 99283; A9270

== ENCOUNTER 2021-04-14 13:20 | Emergency (ER) | payer MEDICARE, SELFPAY ==
[2021-04-14] VITALS (17 sets, daily range): BP systolic 136–180; BP diastolic 69–101; PULSE 83–98; RESP 16–26; TEMP 36.8; O2SAT 93–100
--- NOTE | ~2021-04-14 | CT_ITS ---
EXAMINATION: CT cervical spine wo con DATE: 04/14/2021 15:15 INDICATION: Head injury TECHNIQUE: Computed tomography (CT) of the cervical spine was performed without intravenous contrast. The dose-length product (DLP) was 518.69 mGy-cm. Automated exposure control and iterative reconstruc tion technique were employed. COMPARISON: 03/22/2020 FINDINGS: There is no fracture, dislocation, or subluxation. There is moderate to severe loss of inte rvertebral disc space height from C4-5 through C7-T1. The vertebral body heights are maintained. The odontoid is intact. The prevertebral soft tissues are normal. Small degenerative osteophytes project from the anterior endplates of multiple vertebral bodies. There is severe multilevel facet and uncove rtebral joint osteoarthritis. There is an unchanged area of soft tissue calcification in the posterio r midline of the neck which may reflect prior trauma. IMPRESSION: 1. Severe cervical spondylosis without acute findings or significant interval change. Reviewed, dictated and finalized at location A. HARDENER IMPRESSION: 1. Severe cervical spondylosis without acute findings or significant interval c parth.
--- NOTE | ~2021-04-14 | CT_ITS ---
EXAMINATION: CT brain wo con INDICATION: Headache COMPARISON: 12/17/2020 TECHNIQUE: Standard unenhanced head CT. The dose-length product (DLP) was 605.33 mGy-cm. The mA was a djusted according to patient size. Iterative reconstruction technique was employed. FINDINGS: There is no acute intraparenchymal hemorrhage. No evidence of mass lesion. No evidence of a cute infarction. There is mild periventricular and subcortical hypodensity probably related to small vessel ischemic disease. There is mild prominence of the sulci and ventricles related to cerebral atr ophy. Intracranial calcified cerebral atherosclerosis is noted. There are no extra-axial collections. There is no mass effect or midline shift. Changes in the globes are likely from ocular lens surgery. There is mild mucosal thickening of the paranasal sinuses. IMPRESSION: 1. No acute intracranial abnormality. 2. Age related findings. Reviewed, dictated and finalized at location A. CRAB SHEDDER
--- NOTE | ~2021-04-14 | CT_ITS ---
EXAMINATION: CT lumbar spine wo con DATE: 04/14/2021 15:15 INDICATION: Low back pain TECHNIQUE: Computed tomography (CT) of the lumbar spine was performed without intravenous contrast. T he dose-length product (DLP) was 1337.40 mGy-cm. Iterative reconstruction was used. COMPARISON: CT, 12/29/2011 FINDINGS: There are 9 mm of anterolisthesis of T12 on L1. There are fractures through the bilateral T 12 articular facets extending into the spinous process. There is widening of the T12-L1 disc space. T he vertebral body heights are normal. There are 3 mm of anterolisthesis of L4 on L5. There is severe loss of intervertebral disc space height at L2-3. There is moderate loss of disc space height through out the remainder of the lumbar spine. IMPRESSION: 1. Unstable fracture subluxation at T12-L1. Surgical evaluation is recommended. These findings and re commendations were discussed with Dr. Mahendra Poe MD in the Emergency Department at 1542 hours on 04/14/2021. Reviewed, dictated and finalized at location A. [employer] IMPRESSION: 1. Unstable fracture subluxation at T12-L1. Surgical evaluation is recommended. These findings and recommendations were discussed with Xiang Lane in the Emergency Department at 1542 hours on 04/14/2021.
--- NOTE | 2021-04-14 13:54 | ECG_ITS ---
Measurements Intervals [place] Rate: 83 P: 46 HI: 294 QRS: 84 QRSD: 153 T: 11 QT: 405 QTc: 476 Interpretive Statements SINUS RHYTHM WITH FIRST DEGREE AV BLOCK RIGHT BUNDLE BRANCH BLOCK BASELINE ARTIFACT- II, III, AVF ABNORMAL ECG Electronically Signed On 04-14-2021 15:46:12 PROGRAM STRATEGIST by Ang Dee D.O.
--- NOTE | 2021-04-14 14:05 | PC.NURSE ---
Pt gone to CT scan
--- NOTE | 2021-04-14 14:33 | ED.BACK ---
HPI - Back Pain/Injury General Chief Complaint: Back Pain/Injury Stated Complaint: FALL, BACK PAIN Time Seen by Provider: 04/14/21 13:44 Source: patient History of Present Illness HPI Narrative: Patient presents after a fall. Patient uses a walker at home she is unsure exactly how she fell unsure if she tripped on anything. She denies any chest pain shortness of breath or dizziness prior to the event. Patient developed back pain and her family attempted to lift her but they are unable to do so so they called for lift assist patient was having increasing pain so she sent to the ER for evaluation. She thinks her head she hit her head she is not sure if she lost consciousness reports her primary area of pain in the back of her head and her low back. She denies any focal numbness or weakness she denies any nausea or vomiting Related Data Home Medications Medication Instructions Recorded Confirmed aspirin 81 mg tablet,delayed 81 mg PO DAILY 06/17/19 03/14/21 release acetaminophen 500 mg tablet 1,000 mg PO Q6H PRN tablet 10/04/19 03/14/21 omega-3 fatty acids 1,000 mg 1,000 mg PO TID cap 10/04/19 03/14/21 capsule lisinopril 20 mg PO DAILY 10/27/20 03/14/21 insulin detemir U-100 100 unit/mL 8 unit SUBCUT BID ml 02/07/21 03/14/21 (3 mL) subcutaneous pen Allergies Allergy/AdvReac Type Severity Reaction Status Date / Time diltiazem Allergy Unknown Anxiety Verified 03/14/21 12:26 Review of Systems Review of Systems: CONSTITUTIONAL: Denies fever, chills, or sweats. EYES: Denies visual changes, redness, or discharge. ENT: Denies rhinorrhea, congestion, sore throat, or otalgia. CARDIOVASCULAR: Denies chest pain, palpitations, or edema. RESPIRATORY: Denies cough or dyspnea. GASTROINTESTINAL: Denies abdominal pain, nausea, vomiting, or diarrhea. GENITOURINARY: Denies dysuria or hematuria. SKIN: Denies rash or itching. MUSCULOSKELETAL: Denies joint pain, or myalgia. NEUROLOGIC: Denies numbness, dizziness, or weakness. PSYCHIATRIC: Denies anxiety or depression. All systems reviewed & are unremarkable except as noted in HPI and below PMFSH Past Medical History Medical History Anxiety BMI 37.0-37.9, adult Chronic anemia Depression Hyperlipidemia Hypertension Hypothyroidism Insulin dependent type 2 diabetes mellitus Osteoarthritis Renal cell carcinoma Status post nephrectomy. Mitra (2012) Surgical History Surgical History History of right nephrectomy (~2000) For renal cell carcinoma. Family History Family History Father Family history of heart disease in male family member before age 55 Diabetes mellitus Family history of cardiovascular disease Family history of malignant neoplasm Hypertension Mother Family history of arthritis Sibling Family history of heart disease in male family member before age 55 Social History Social History Social History: Surrogate decision maker: Gifty Salmeron, niece. Code status: Full code. Alcohol intake: never Substance use: never Substance use type: does not use Additional living arrangements comments: The patient lives in [place] with her miniature pincher. 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 Gender identity (if verbalized by the patient): Female Sexual Orientation (if Verbalized by the Patient): Straight or Heterosexual Spiritual care concerns: No Agree to blood products: Yes Exam Narrative: GENERAL: Well-appearing, well-nourished, and in no acute distress. HEAD: Normocephalic, small abrasion noted to the left occiput with mild tenderness no crepitus or obvious deformity EYES: PERRLA and EOMI. ENT: Nares clear, no rhinorrhea or epistaxis. Mucous membranes moist. NECK: Supple. No masses
[2021-04-14] MEDS: fentaNYL CITRATE INJ (*CRX) 100 MCG/2 ML VIAL 50 MCG IV PUSH (14:38)
[2021-04-14 14:49] LABS: Basophils Percent Auto 0.3 % (0.2-1.2); Eosinophils Percent Auto 0.3 % (0-4.4); Hematocrit 32.6 % (37.0-47.0); Hemoglobin 11.1 g/dL (12.0-15.0); Immature Granulocyte Absolute 0.12 K/mm3 (0.00-0.031); Immature Granulocyte Percent A 0.9 % (0-0.5); Lymphocytes Absolute Auto 0.76 K/mm3 (0.9-3.2); Mean Corpuscular Hemoglobin 31.3 pg (26-34); Mean Corpuscular Volume 91.8 fl (80-100); Mean Platelet Volume 10.7 fl (7.4-10.4); Monocytes Absolute Auto 0.9 K/mm3 (0.1-0.6); Monocytes Percent Auto 6.9 % (2.6-8.5); Neutrophils Absolute Auto 10.9 K/mm3 (1.3-6.7); Neutrophils Percent Auto 85.6 % (45.5-73.1); Platelet Count Result 277 k/mm3 (150-375); Red Blood Count 3.55 M/mm3 (4.2-5.4); Red Cell Distribution Width 13.8 % (11.5-14.5); White Blood Count 12.7 K/mm3 (4.5-10.0)
[2021-04-14 14:58] LABS: Alanine Aminotransferase 15 U/L (4-35); Albumin Level 4.2 g/dL (3.5-5.1); Alkaline Phosphatase 67 U/L (38-126); Anion Gap 9 mmol/L (8-16); Aspartate Amino Transferase 29 U/L (14-36); Bilirubin,Total 0.5 mg/dL (0.2-1.3); Blood Urea Nitrogen 64 mg/dL (7-17); Calcium 9.1 mg/dL (8.4-10.2); Carbon Dioxide 23 mmol/L (22-30); Chloride 98 mmol/L (98-107); Estimated CRCL calculation 36 ml/min; Estimated Glomerular Filt Rate 36; Glucose 125 mg/dL (65-110); Potassium 5.8 mmol/L (3.4-5.0); Sodium 130 mmol/L (137-145)
[2021-04-14 15:00] LABS: Prothrombin Time 13.5 Seconds (11.1-14.7)
[2021-04-14 15:01] LABS: Partial Thromboplastin Time 28.5 SECONDS (22.3-36.8)
[2021-04-14] MEDS: MORPHINE SULFATE (*CRX) 4 MG/ML INJ IV PUSH ×2 (16:33→18:08)
--- NOTE | 2021-04-14 16:45 | PC.NURSE ---
Doctor wanted to measure output of pt and asked to place lindo, lindo catheter inserted, pt couldn't move to get on bedpan and could not urinate on her own,
[2021-04-14 16:50] LABS: Add Urine Microscopic? NO; Appearance Urine Clear (Clear); Bilirubin Urine Negative (Negative); Blood Urine Negative (Negative); Color Urine Straw (Yellow); Glucose Urine UA Negative (Negative); Ketones Urine Negative (Negative); Leukocyte Esterase Ur Negative LEU/UL (Negative); Nitrate Urine Negative (Negative); Protein Urine Negative (Negative); Specific Grav Ur 1.009 (1.001-1.035); Urobilinogen Urine Negative mg/dL (<2.0)
--- NOTE | 2021-04-14 18:04 | PC.NURSE ---
Gave report to Micaela ROUSE no further questions or concerns, escrow secretary calling for transport now
--- NOTE | 2021-04-14 21:12 | PC.NURSE ---
Received call from Aleta ROUSE at [facility]. Patient arrived to their facility with no paperwork other than a facesheet. Faxed copy of chart to RN at [phone]....21:00
== END 2021-04-14 19:20 | disposition short-term general hospital (02) ==
PROVIDERS: Emergency Provider Emergency Medicine; PCP Family Medicine
DX: S00.91XA Abrasion of unspecified part of head, initial encounter (principal); S22.088A Other fracture of T11-T12 vertebra, initial encounter for closed fracture; S09.90XA Unspecified injury of head, initial encounter; F41.9 Anxiety disorder, unspecified; F32.A Depression, unspecified; E78.5 Hyperlipidemia, unspecified; I10 Essential (primary) hypertension; E03.9 Hypothyroidism, unspecified; E11.9 Type 2 diabetes mellitus without complications; W19.XXXA Unspecified fall, initial encounter; M19.90 Unspecified osteoarthritis, unspecified site; Z79.82 Long term (current) use of aspirin; Z79.899 Other long term (current) drug therapy; Z79.4 Long term (current) use of insulin
CPT/HCPCS: 36415; 70450; 72125; 72131; 80053; 81003; 85025; 85610; 85730; 93005; 96374; 96375; 96376; 99285; J2270; J3010

== ENCOUNTER 2023-03-17 22:04 | Emergency (ER) | payer MEDICARE, MEDICAID, SELFPAY ==
[2023-03-17] VITALS (10 sets, daily range): BP systolic 137–164; BP diastolic 46–77; PULSE 79–91; RESP 12–20; TEMP 36.6; O2SAT 94–100
--- NOTE | ~2023-03-17 | XR_ITS ---
EXAMINATION: XR knee RT 3V DATE: 03/17/2023 23:29 INDICATION: Right knee injury. TECHNIQUE: 3 views of right knee were obtained. COMPARISON: Right tibia and fibula radiographs 03/19/2020 FINDINGS: There is an oblique fracture of metaphysis of proximal tibia. The distal fracture fragment demonstrates impaction. There is a transverse fracture of neck of distal fibula. The distal fracture fragment demonstrates impaction. There is severe osteoarthritis of lateral compartment and mild osteo arthritis of medial and patellofemoral compartments. No knee joint effusion. IMPRESSION: 1. Oblique fracture of proximal tibial metaphysis. 2. Transverse fracture of neck of proximal fibula. 3. Severe right knee osteoarthritis. Reviewed, dictated and finalized at location E.
--- NOTE | 2023-03-17 23:13 | PC.NURSE ---
Report given to PADMA Quinteros. No questions/concerns, care of pt transferred.
[2023-03-17] MEDS: MORPHINE SULFATE (*CRX) 4 MG/ML INJ IV PUSH (23:34)
[2023-03-18] VITALS (70 sets, daily range): BP systolic 96–170; BP diastolic 48–130; PULSE 65–124; RESP 12–26; O2SAT 94–100
--- NOTE | 2023-03-18 00:46 | PC.NURSE ---
[facility] called and stated that patient has been accepted. Per [facility] worker we are now waiting on a bed.
[2023-03-18] MEDS: fentaNYL CITRATE INJ (*CRX) 100 MCG/2 ML VIAL 50 MCG IV PUSH (00:53)
--- NOTE | 2023-03-18 01:41 | ED.FALL ---
HPI - Fall General Chief Complaint: Fall <Paula Pelayo MD - Last Filed: 03/18/23 02:49> Stated Complaint: FALL, RIGHT KNEE PAIN <Paula Pelayo MD - Last Filed: 03/18/23 02:49> Time Seen by Provider: 03/17/23 22:08 <Paula Pelayo MD - Last Filed: 03/18/23 02:49> History of Present Illness HPI Narrative: Patient brought to the emergency department from home by EMS. She is accompanied by her niece. Patient was transferring from the wheelchair to the bed when she tripped landing on her right knee. She is having an extreme amount of pain. Denies any and all other injuries. Patient is normally wheelchair-bound due to previous back surgery per her niece. <Paula Pelayo MD - Last Filed: 03/18/23 02:49> Related Data Home Medications: Home Medications Medication Instructions Recorded Confirmed aspirin 81 mg tablet,delayed 81 mg PO DAILY 06/17/19 03/14/21 release (Adult Low Dose Aspirin) acetaminophen 500 mg tablet 1,000 mg PO Q6H PRN Pain 10/04/19 03/14/21 (Acetaminophen Extra Strength) omega-3 fatty acids 1,000 mg 1,000 mg PO TID 10/04/19 03/14/21 capsule (Fish Oil Concentrate) lisinopril 20 mg tablet 20 mg PO DAILY 10/27/20 03/14/21 insulin detemir U-100 100 unit/mL 8 unit subcut BID 02/07/21 03/14/21 (3 mL) subcutaneous pen (Levemir FlexTouch U-100 Insulin) <Paula Pelayo MD - Last Filed: 03/18/23 02:49> Allergies/Adverse Reactions: Allergies Allergy/AdvReac Type Severity Reaction Status Date / Time diltiazem Allergy Unknown Anxiety Verified 06/13/21 13:51 <Paula Pelayo MD - Last Filed: 03/18/23 02:49> Review of Systems Review of Systems: Negative except for what is documented in the HPI <Paula Pelayo MD - Last Filed: 03/18/23 02:49> [facility] Past Medical History Medical History: Medical History Anxiety BMI 37.0-37.9, adult Chronic anemia Depression Hyperlipidemia Hypertension Hypothyroidism Insulin dependent type 2 diabetes mellitus Osteoarthritis Renal cell carcinoma Status post nephrectomy. [facility]ra (2011) <Paula Pelayo MD - Last Filed: 03/18/23 02:49> Surgical History Surgical History: Surgical History History of right nephrectomy (~1999) For renal cell carcinoma. <Paula Pelayo MD - Last Filed: 03/18/23 02:49> Family History Family History: Family History Father Family history of heart disease in male family member before age 55 Diabetes mellitus Family history of cardiovascular disease Family history of malignant neoplasm Hypertension Mother Family history of arthritis Sibling Family history of heart disease in male family member before age 55 <Paula Pelayo MD - Last Filed: 03/18/23 02:49> Social History Social History: Social History Social History: Surrogate decision maker: Gifty Salmeron, niece. Code status: Full code. Alcohol intake: never Substance use: never Substance use type: does not use Living arrangements: with family Additional living arrangements comments: The patient lives in [place] with her miniature pincher. 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 Gender identity (if verbalized by the patient): Female Sexual Orientation (if Verbalized by the Patient): Straight or Heterosexual Spiritual care concerns: No Agree to blood products: Yes <Paula Pelayo MD - Last Filed: 03/18/23 02:49> Exam Narrative: GENERAL: Well-appearing, well-nourished, and in no acute distress. HEAD: Normocephalic, atraumatic. EYES: PERRLA and EOMI. ENT: Nares clear, no rhinorrhea or epistaxis. Mucous membranes moist. NECK: Supple. CHEST:
[2023-03-18 07:29] LABS: Glucose Point of Care 174 mg/dl (65-105)
[2023-03-18] MEDS: MORPHINE SULFATE (*CRX) 2 MG/ML INJ IV PUSH ×2 (07:48→15:19)
--- NOTE | 2023-03-18 09:16 | PC.NURSE ---
Spoke with [facility], they still have no bed available and will call when bed available.
--- NOTE | 2023-03-18 19:33 | PC.NURSE ---
Assumed care of pt from PADMA Cooper at this time. Pt to be xfr to [facility] in next 30 minutes. Awaiting call back from [facility] to give report.
[2023-03-18] MEDS: MORPHINE SULFATE (*CRX) 4 MG/ML INJ IV PUSH (20:01)
== END 2023-03-18 20:17 | disposition short-term general hospital (02) ==
PROVIDERS: Emergency Provider Emergency Medicine; PCP Family Medicine
DX: S89.091A Other physeal fracture of upper end of right tibia, initial encounter for closed fracture (principal); S82.831A Other fracture of upper and lower end of right fibula, initial encounter for closed fracture; E78.5 Hyperlipidemia, unspecified; I10 Essential (primary) hypertension; E03.9 Hypothyroidism, unspecified; E11.9 Type 2 diabetes mellitus without complications; D64.9 Anemia, unspecified; M17.11 Unilateral primary osteoarthritis, right knee; Z99.3 Dependence on wheelchair; Z85.528 Personal history of other malignant neoplasm of kidney; Z90.5 Acquired absence of kidney; Z79.82 Long term (current) use of aspirin; Z79.4 Long term (current) use of insulin
CPT/HCPCS: 73562; 82948; 96374; 96375; 96376; 99285; J2270; J3010